=== PATIENT | male | born 1955 | race Caucasian/White ===

== ENCOUNTER 2025-10-07 07:33 | Day surgery (SDC) | payer MEDICARE, BC, SELFPAY ==
--- NOTE | 2025-09-28 13:57 | PAT.ANESEVAL ---
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 When Was Last Pacemaker Check QUESTION #4 FULL TEXT: You/Your Family Experience fever (hyperthermia) with Anesthesia Last Oral Intake Last Oral intake: Last Oral Intake NPO since Meds taken in AM with sips of water? 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 helper: PONV - charm filter operator helper Female No 09/28/25 13:02 HX of Motion Sickness No 09/28/25 13:02 HX of N/V After Surgery No 09/28/25 13:02 Non-Smoker Yes 09/28/25 13:02 Duration of Surgery greater Yes 09/28/25 13:02 than 60 minutes Number of Risk Factors 2 09/28/25 13:02 PONV Score Moderate Risk 09/28/25 13:02 Height & Weight Height & Weight: Anesthesia: Height & Weight Height 6 ft 2 in 08/28/25 09:24 Respiratory Assessment Respiratory Assessment - charm filter operator helper: Respiratory Tract Infection Hx - charm filter operator helper Hx Respiratory Tract Infection No 09/28/25 13:02 STOP Sleep Apnea STOP Sleep Apnea - charm filter operator helper: STOP Sleep Apnea - charm filter operator helper Hx Hypertension Yes: PER PT, CONTROLLED ON 09/28/25 13:02 MEDS Hx Sleep Apnea No 09/28/25 13:02 CPAP BIPAP Do you snore loudly (louder No 09/28/25 13:02 than talking or can be heard Do you often feel tired/ No 09/28/25 13:02 fatigued/ sleepy during daytime? Has anyone observed you stop Yes 09/28/25 13:02 breathing during sleep? STOP Results Positive 09/28/25 13:02 QUESTION #5 FULL TEXT : Do you snore loudly (louder than talking or can be heard through closed doors)? 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 Specify any problems Hx of Preganancy in last 3 N/A 09/28/25 13:02 Months Nurse Filling Out Transfusion MGRIFFITH 09/28/25 13:02 & Questions: Date: 09/28/25 09/28/25 13:02 Time: 13:05 09/28/25 13:02 Patient unable to answer at this time (ie. confused, unrespo /Reproduction History /Reproductive History - charm filter operator helper: /Reproductive Hx- charm filter operator helper Hx Now Gestational Age (in weeks): EDC: Hx Hx Para Hx Section SAB Does the father of the baby or his family experience fever w Father of the baby Malignant Hypertension history comment [facility] Medical History (Updated 09/28/25 @ 13:14 by Sonya Rios) Wears glasses Cancer Alcohol use Easy bruising High cholesterol Restless legs Injury of back Injury of head and neck Hypertension Heartburn Former smoker Leg cramps History of stress test Anemia Home Medications ?Medication ?Instructions ?Recorded ?Last Taken ?Type ascorbate calcium (vitamin C) 500 500 mg PO QDAY 08/28/25 Unknown History mg tablet atorvastatin 20 mg tablet 20 mg PO QDAY 08/28/25 Unknown History bupropion HCl 150 mg 24 hr tablet, 150 mg PO QDAY 08/28/25 Unknown History extended release folic acid 1 mg tablet 1 mg PO QDAY 08/28/25 Unknown History multivitamin 1 tab PO QDAY 08/28/25 Unknown History valsartan 80 mg tablet 80 mg PO QDAY 08/28/25 Unknown History Allergy/AdvReac Type Severity Reaction Status Date / Time No Known Allergies Allergy Verified 09/28/25 12:58 Surgical History (Updated 09/28/25 @ 13:14 by Sonya Rios) History of esophagogastroduodenoscopy (EGD) History of colonoscopy History of cardiac catheterization History of back surgery History of testicular surgery History of hernia surgery Social History Smoking Status: Former smoker Audit: Pertinent Findings Pertinent Findings EKG Perinent findings: 08/2025: SR with slight intraventricular conduction delay. 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 Was scheduled in 09/12 for follow up screening. Recommendation Anesthesia Recommendation Anesthesia recommendation: F/U recommended (Please see if we can get CT ABD results for AAA screen )
--- NOTE | 2025-09-30 12:23 | PAT.ANESEVAL ---
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 When Was Last Pacemaker Check QUESTION #4 FULL TEXT: You/Your Family Experience fever (hyperthermia) with Anesthesia Last Oral Intake Last Oral intake: Last Oral Intake NPO since Meds taken in AM with sips of water? 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 Has anyone observed you stop Yes 09/28/25 13:02 breathing during sleep? STOP Results Positive 09/28/25 13:02 QUESTION #5 FULL TEXT : Do you snore loudly (louder than talking or can be heard through closed doors)? 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 Specify any problems Hx of Preganancy in last 3 N/A 09/28/25 13:02 Months Nurse Filling Out Transfusion MGRIFFITH 09/28/25 13:02 & Questions: Date: 09/28/25 09/28/25 13:02 Time: 13:05 09/28/25 13:02 Patient unable to answer at this time (ie. 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 Hx Now Gestational Age (in weeks): EDC: Hx Hx Para Hx Section SAB Does the father of the baby or his family experience fever w Father of the baby Malignant Hypertension history comment [facility] Medical History (Updated 09/28/25 @ 13:14 by Sonya Rios) Wears glasses Cancer Alcohol use Easy bruising High cholesterol Restless legs Injury of back Injury of head and neck Hypertension Heartburn Former smoker Leg cramps History of stress test Anemia Home Medications ?Medication ?Instructions ?Recorded ?Last Taken ?Type ascorbate calcium (vitamin C) 500 500 mg PO QDAY 08/28/25 Unknown History mg tablet atorvastatin 20 mg tablet 20 mg PO QDAY 08/28/25 Unknown History bupropion HCl 150 mg 24 hr tablet, 150 mg PO QDAY 08/28/25 Unknown History extended release folic acid 1 mg tablet 1 mg PO QDAY 08/28/25 Unknown History multivitamin 1 tab PO QDAY 08/28/25 Unknown History valsartan 80 mg tablet 80 mg PO QDAY 08/28/25 Unknown History Allergy/AdvReac Type Severity Reaction Status Date / Time No Known Allergies Allergy Verified 09/28/25 12:58 Surgical History (Updated 09/28/25 @ 13:14 by Sonya Rios) History of esophagogastroduodenoscopy (EGD) History of colonoscopy History of cardiac catheterization History of back surgery History of testicular surgery History of hernia surgery Social History Smoking Status: Former smoker Audit: Pertinent Findings HISTORY of Pertinent Findings History of Pertinent Findings: EKG Pertinent Findings EKG Perinent findings 08/2025: SR with slight 09/28/25 14:00 intraventricular conduction delay. QTc 459 Additional Pertinent Findings Additional pertinent findings AAA screening 09/09 showed 3 09/28/25 14:00 .4 cm AAA. Was scheduled in 09/12 for follow up screening. Pertinent Findings Additional pertinent findings: 08/2025: U/S aorta shows stable dilation, and radiologist believes no AAA. Recommendation Anesthesia Recommendation Anesthesia recommendation: OPTIMIZED for anesthesia
[2025-10-07] VITALS (9 sets, daily range): BP systolic 125–148; BP diastolic 58–80; PULSE 67–72; RESP 16; TEMP 36.1–36.3; O2SAT 93–99; BMI 28.2
--- OUTSIDE RECORDS SUMMARY | 2025-10-07 07:50 | XMS RPT_ITS | CCD ---
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 Name Role Phone WOOD BARRON DO Primary Care Physician [phone] Mary PT, Courtney Unavailable Unavailable HALKO DO, WOOD Attending Unavailable HALKO DO, WOOD Primary Care Unavailable ALEXANDRIA BECK, SADE Attending Unavail able HALKO DO, WOOD Primary Care Unavailable EDGAR SAMUEL MD Attending Unavaila ble HALKO DO, WOOD Primary Care Unavailable JIMMIE DHLILON, EDGAR Attending Unavaila ble HALKO DO, WOOD Primary Care Unavailable HALKO DO, WOOD Attending Unavailable HALKO DO, WOOD Primary Care Unavailable EDGAR SAMUEL MD Attending Unavaila ble HALKO DO, WOOD Primary Care Unavailable HALKO DO, WOOD Attending Unavailable HALKO DO, WOOD Primary Care Unavailable TIMOTEO BECK, ISAIAH Attending Unavail able HALKO DO, WOOD Primary Care Unavailable HALKO DO, WOOD Primary Care Unavailable HALKO DO, WOOD Attending Unavailable HALKO DO, WOOD Primary Care Unavailable HALKO DO, WOOD Attending Unavailable HALKO DO, WOOD Attending Unavailable HALKO DO, WOOD Primary Care Unavailable TIMOTEO BECK, ISAIAH Attending Unavail able HALKO DO, WOOD Primary Care Unavailable HALKO DO, WOOD Attending Unavailable HALKO DO, WOOD Primary Care Unavailable HALKO DO, WOOD Attending Unavailable HALKO DO, WOOD Primary Care Unavailable Dr. Ceferino Ramirez MD Attending Physician [phone] Ceferino Ramirez Attending Unavailable Ceferino Ramirez Attending Unavailable Ceferino Ramirez Referring Unavailable Donna, Wood Primary Care Unavailable Ceferino Ramirez Attending Unavailable Medications Current Medications Medication Drug Class(es) Dates Sig (Normalized) Sig (Original) acetaminophen 500 mg oral tablet (4 sources) Start: 10-09-2024 Tylenol Extra Strength 500 mg oral tablet Dose : 1,000 mg = 2 tab(s), Oral, q4h, PRN as needed for pain, # 120 tab(s), 0 Refill(s) Start Date: 10/09/24 Status: Ordered Medication Dispense Status: Completed Quantity: 120.0 Unit: tab(s) Total Allowed Fills: 1 Fills Dispensed: 0 Ascorbic Acid (18 sources) Vitamin C Start: 01-16-2022 Vitamin C qDay, 0 Refill(s) Start Date: 01/16/22 Status: Ordered Medication Dispense Status: Completed Total Allowed Fills: 1 Fills Dispensed: 0 Start: 01-16-2022 Vitamin C qDay , 0 Refill(s) Start Date: 01/16/22 Status: Ordered atorvastatin 20 mg oral tablet (20 sources) HMG-CoA Reductase Inhibitor Start: 09-01-2025 atorvastatin 20 mg oral tablet Dose : 20 mg = 1 tab(s), Oral, qDay, # 90 tab(s), 1 Refill(s), [id number], cm, 09/01/25 8:26:00 EDT, Height, kg, 09/01/25 8:26:00 EDT, Dosing Weight Start Date: 09/01/25 Status: Ordered Medication Dispense Status: Completed Quantity: 90.0 Unit: tab(s) Total Allowed Fills: 2 Fills Dispensed: 0 Start: 08-28-2025 take 1 tablet by osiel once daily Start: 03-12-2024 atorvastatin 2 0 mg oral tablet Dose : 20 mg = 1 tab(s), Oral, qDay, # 90 tab(s), 1 Refill(s), Pharmacy: [facility]/pharmacy #[id number], 184.5, cm, 01/15/24 13:57:00 EST, Height, kg, 03/12/24 15:45:00 EDT, Dosing Weight Start Date: 03/12/24 Status: Ordered Start: 10-17-2023 atorvastatin 2 0 mg oral tablet Dose : 20 mg = 1 tab(s), Oral, qDay, # 90 tab(s), 1 Refill(s), Pharmacy: [facility]/pharmacy #[id number], 184.5, cm, 08/08/23 14:33:00 EDT, Height, kg, 08/08/23 14:33:00 EDT, Dosing Weight Start Date: 10/17/23 Status: Ordered Start: 07-16-2023 atorvastatin 2 0 mg oral tablet Dose : 20 mg = 1 tab(s), Oral, qDay, # 90 tab(s), 0 Refill(s), Pharmacy: [facility]/pharmacy #[id number], 184.5, cm, 07/16/23 13:03:00 EDT, Height, kg, 07/16/23 13:03:00 EDT, Dosing Weight Start Date: 07/16/23 Status: Ordered Start: 03-20-2022 End: 03-15-2023 atorvastatin 20 mg oral tabl et Dose : 20 mg = 1 tab(s), Oral, qDay, X 90 day(s), # 90 tab(s), 3 Refill(s), 03/15/23 8:16:00 EDT, Pharmacy: [facility]/pharmacy #[id number], 190, cm, 03/20/22 7:50:00 EDT, Height, kg, 03/20/22 7:50:00 EDT, Dosing Weight Start Date: 03/20/22 Stop Date: 03/15/23 Status: Ordered Start: 08-11-2021 take 1 tablet by osiel th once daily atorvastatin 20 mg oral tablet See Instructions, TAKE 1 TABLET BY MOUTH EVERY DAY, # 60 tab(s), 6 Refill(s), Pharmacy: [facility]/pharmacy #[id number], 187, cm, 04/20/21 11:23:00 EDT, Height, kg, 04/20/21 11:23:00 EDT, Dosing Weight Start Date: 08/11/21 Status: Ordered 24 hr buPROPion hydrochlorid e 150 mg extended release oral tablet (18 sources) Aminoketone Start: 08-28-2025 take 1 tablet by osiel th once daily Start: 03-03-2025 take 1 tablet by osiel th every hour, then take 1 tablet by mouth every twenty-four hours buPROPion 150 mg/24 hours (XL) oral tablet, extended release Dose : 150 mg = 1 tab(s), Oral, q24h, # 90 tab(s), 1 Refill(s), Pharmacy: [facility]/pharmacy #[id number], 188, cm, 03/03/25 10:29:00 EDT, Height, kg, 03/03/25 10:29:00 EDT, Dosing Weight Start Date: 03/03/25 Status: Ordered Medication Dispense Status: Completed Quantity: 90.0 Unit: tab(s) Total Allowed Fills: 2 Fills Dispensed: 0 Start: 03-12-2024 take 1 tablet by osiel th every hour, then take 1 tablet by mouth every twenty-four hours buPROPion 150 mg/24 hours (XL) oral tablet, extended release Dose : 150 mg = 1 tab(s), Oral, q24h, # 90 tab(s), 1 Refill(s), Pharmacy: [facility]/pharmacy #[id number], 184.5, cm, 01/15/24 13:57:00 EST, Height, kg, 03/12/24 15:45:00 EDT, Dosing Weight Start Date: 03/12/24 Status: Ordered Start: 10-17-2023 take 1 tablet by osiel th every hour, then take 1 tablet by mouth every twenty-four hours buPROPion 150 mg/24 hours (XL) oral tablet, extended release Dose : 150 mg = 1 tab(s), Oral, q24h, # 90 tab(s), 1 Refill(s), Pharmacy: [facility]/pharmacy #[id number], 184.5, cm, 08/08/23 14:33:00 EDT, Height, kg, 08/08/23 14:33:00 EDT, Dosing Weight Start Date: 10/17/23 Status: Ordered Start: 07-16-2023 take 1 tablet by osiel th every hour, then take 1 tablet by mouth every twenty-four hours buPROPion 150 mg/24 hours (XL) oral tablet, extended release Dose : 150 mg = 1 tab(s), Oral, q24h, # 90 tab(s), 0 Refill(s), Pharmacy: [facility]/pharmacy #[id number], 184.5, cm, 07/16/23 13:03:00 EDT, Height, kg, 07/16/23 13:03:00 EDT, Dosing Weight Start Date: 07/16/23 Status: Ordered Start: 06-12-2022 take 1 tablet by osiel th every hour, then take 1 tablet by mouth every twenty-four hours buPROPion 150 mg/24 hours (XL) oral tablet, extended release Dose : 150 mg = 1 tab(s), Oral, q24h, # 90 tab(s), 0 Refill(s), Pharmacy: [facility]/pharmacy #[id number], 186, cm, 06/12/22 8:23:00 EDT, Height Start Date: 06/12/22 Status: Ordered calcium ascorbate 500 mg oral tablet (1 source) Start: 08-28-2025 take 1 tablet by mouth once daily doxycycline hyclate 100 mg oral capsule (1 source) Tetracycline- class Drug Start: 09-29-2021 End: 10-09-2021 doxycycline hyclate 100 mg oral capsule Dose : 100 mg = 1 cap(s), Oral, BID, X 10 day(s), # 20 cap(s), 0 Refill(s), 10/09/21 14:10:00 EST, [id number], Acute bronchitis, 187, cm, 09/19/21 9:57:00 EDT, Height, 101.8, kg, 09/19/21 9:57:00 EDT, Dosing Weight Start Date: 09/29/21 Stop Date: 10/09/21 Status: Ordered ferrous sulfate 200 mg oral tablet (18 sources) Start: 01-16-2022 take 1 tablet by mouth once daily ferrous sulfate 200 mg (65 mg elemental iron) oral tablet mg = tab(s), Oral, qDay, 0 Refill(s) Start Date: 01/16/22 Status: Ordered Medication Dispense Status: Completed Total Allowed Fills: 1 Fills Dispensed: 0 folic acid 1 mg oral tablet (20 sources) Start: 10-01-2024 take 1 tablet by mouth once daily Start: 11-24-2022 take 1 tablet by osiel th once daily folic acid 1 mg oral tablet 1 tab(s), Oral, qDay, # 90 tab(s), 1 Refill(s), Pharmacy: [facility]/pharmacy #[id number], 188, cm, 07/17/22 14:55:00 EDT, Height, kg, 07/17/22 14:55:00 EDT, Dosing Weight Start Date: 11/24/22 Status: Ordered Start: 07-17-2022 take 1 tablet by osiel th once daily folic acid 1 mg oral tablet 1 tab(s), Oral, qDay, # 90 tab(s), 1 Refill(s), Pharmacy: [facility]/pharmacy #[id number], 188, cm, 07/17/22 14:55:00 EDT, Height, kg, 07/17/22 14:55:00 EDT, Dosing Weight Start Date: 07/17/22 Status: Ordered Start: 02-20-2022 take 1 tablet by osiel th once daily folic acid 1 mg oral tablet 1 tab(s), Oral, qDay, # 90 tab(s), 1 Refill(s), Pharmacy: [id number], 188, cm, 01/16/22 14:57:00 EST, Height, kg, 01/16/22 14:57:00 EST, Dosing Weight Start Date: 02/20/22 Status: Ordered Start: 09-26-2021 take 1 tablet by osiel th once daily folic acid 1 mg oral tablet See Instructions, TAKE 1 TABLET BY MOUTH EVERY DAY, # 90 tab(s), 1 Refill(s), Pharmacy: [id number], 187, cm, 09/19/21 9:57:00 EDT, Height, kg, 09/19/21 9:57:00 EDT, Dosing Weight Start Date: 09/26/21 Status: Ordered lisinopril 5 mg oral tablet (1 source) Angiotensin Converting Enzyme Inhibitor Start: 02-14-2023 End: 04-15-2023 lisinopril 5 mg oral tablet Dose : 5 mg = 1 tab(s), Oral, qDay, # 60 tab(s), 0 Refill(s), [id number], Hypertension, 184.15, cm, 02/14/23 9:58:00 EDT, Height Start Date: 02/14/23 Stop Date: 04/15/23 Status: Ordered Multivitamin preparation (18 sources) Start: 01-16-2022 take 1 tablet by mouth once daily Multivitamin Dose = 1 tab(s), Oral, Daily, 0 Refill(s) Start Date: 01/16/22 Status: Ordered Medication Dispense Status: Completed Total Allowed Fills: 1 Fills Dispensed: 0 Start: 01-16-2022 take 1 tablet by osiel th once daily Multivitamin Dose = 1 tab(s), Oral, Daily, 0 Refill(s) Start Date: 01/16/22 Status: Ordered Multivitamin tablet (1 source) Start: 08-28-2025 pantoprazole 40 mg delayed release oral tablet (5 sources) Proton Pump Inhibitor Start: 04-20-2021 pantoprazole 40 mg oral enteric coated tablet Dose : 40 mg = 1 tab(s), 0 Refill(s) Start Date: 04/20/21 Status: Ordered phenylephrine 0.0025 mg/mg / witch ness 0.5 mg/mg rectal gel (2 sources) alpha-1 Adrenergic Agonist Start: 07-14-2025 apply 1 dose topically four times daily as needed phenylephrine 0.25% rectal gel Dose = 1 tito, Topical, QID, PRN as needed for itching, # 54 gram(s), 0 Refill(s), Pharmacy: [facility] #[id number], 188, cm, 07/14/25 11:56:00 EDT, Height, kg, 07/14/25 11:56:00 EDT, Dosing Weight Start Date: 07/14/25 Status: Ordered Medication Dispense Status: Completed Quantity: 54.0 Unit: g Total Allowed Fills: 1 Fills Dispensed: 0 predniSONE (4 sources) Start: 09-19-2021 Deltasone 5 mg tab (TAPER) 0 Refill(s) Start Date: 09/19/21 Status: Ordered Promethazine (1 source) Phenothiazine Start: 09-29-2021 End: 10-06-2021 take 1 dose by mouth every six hours as needed for cough Promethazine DM 6.25 mg-15 mg/5 mL oral syrup Dose = 5 mL, Oral, q6h, PRN for cough, X 7 day(s), # 120 mL, 0 Refill(s), Pharmacy: [facility] #[id number], Acute bronchitis, 187, cm, 09/19/21 9:57:00 EDT, Height, kg, 09/19/21 9:57:00 EDT, Dosing Weight Start Date: 09/29/21 Stop Date: 10/06/21 Status: Ordered valsartan 80 mg oral tablet (11 sources) Angiotensin 2 Receptor Esther Start: 09-01-2025 valsartan 80 mg oral tablet Dose : 80 mg = 1 tab(s), Oral, Daily, # 90 tab(s), 1 Refill(s), Pharmacy: [facility]/pharmacy #[id number], 188, cm, 10/14/25 8:26:00 EDT, Height, kg, 09/01/25 8:26:00 EDT, Dosing Weight Start Date: 09/01/25 Status: Ordered Medication Dispense Status: Completed Quantity: 90.0 Unit: tab(s) Total Allowed Fills: 2 Fills Dispensed: 0 Start: 08-28-2025 take 1 tablet by osiel th once daily Start: 03-12-2024 valsartan 80 m g oral tablet Dose : 80 mg = 1 tab(s), Oral, Daily, # 90 tab(s), 1 Refill(s), Pharmacy: [facility]/pharm[facility] #[id number], 184.5, cm, 01/15/24 13:57:00 EST, Height, kg, 03/12/24 15:45:00 EDT, Dosing Weight Start Date: 03/12/24 Status: Ordered Start: 10-17-2023 End: 04-14-2024 valsartan 40 mg oral tablet Dose : 40 mg = 1 tab(s), Oral, qDay, # 90 tab(s), 1 Refill(s), [id number] 184.5, cm, 08/08/23 14:33:00 EDT, Height, kg, 08/08/23 14:33:00 EDT, Dosing Weight Start Date: 10/17/23 Stop Date: 04/14/24 Status: Ordered Start: 07-16-2023 End: 10-14-2023 valsartan 40 mg oral tablet Dose : 40 mg = 1 tab(s), Oral, qDay, # 90 tab(s), 0 Refill(s), Pharmacy: [facility] #[id number], 184.5, cm, 07/16/23 13:03:00 EDT, Height, kg, 07/16/23 13:03:00 EDT, Dosing Weight Start Date: 07/16/23 Stop Date: 10/14/23 Status: Ordered Start: 03-21-2023 End: 06-19-2023 valsartan 40 mg oral tablet Dose : 40 mg = 1 tab(s), Oral, qDay, # 90 tab(s), 0 Refill(s), Pharmacy: [facility]/pharm[facility] #[id number], 184.5, cm, 03/21/23 10:36:00 EDT, Height Start Date: 03/21/23 Stop Date: 06/19/23 Status: Ordered vitamin B12 (7 sources) Vitamin B12 Start: 01-16-2022 Vitamin B12 0 Refill(s) Start Date: 01/16/22 Status: Ordered Completed/Discontinued Medications Medication Drug Class(es) Dates Sig (Normalized) Sig (Original) methocarbamol 750 mg oral tablet (3 sources) Muscle Relaxant Start: 03-06-2023 End: 03-13-2023 methocarbamol 750 mg oral tablet Dose : 1,500 mg = 2 tab(s), Oral, TID, PRN Muscle spasm, Do not drive, operate heavy machinery, or drink alcohol while on this med., # 42 tab(s), 0 Refill(s), Pharmacy: [id number], 184.15, cm, 03/06/23 10:27:00 EDT, Height Start Date: 03/06/23 Stop Date: 03/13/23 Status: Ordered sildenafil 100 mg oral tablet (10 sources) Phosphodiesterase 5 Inhibitor Start: 03-03-2025 End: 06-01-2025 sildenafil 100 mg oral tablet Dose : 100 mg = 1 tab(s), Oral, qDay, PRN activity, # 30 tab(s), 2 Refill(s), Pharmacy: [facility] #[id number], 188, cm, 03/03/25 10:29:00 EDT, Height, kg, 03/03/25 10:29:00 EDT, Dosing Weight Start Date: 03/03/25 Stop Date: 06/01/25 Status: Ordered Medication Dispense Status: Completed Quantity: 30.0 Unit: tab(s) Total Allowed Fills: 3 Fills Dispensed: 0 Start: 03-12-2024 End: 06-10-2024 sildenafil 100 mg oral table t Dose : 100 mg = 1 tab(s), Oral, qDay, PRN activity, # 30 tab(s), 2 Refill(s), Pharmacy: [facility] #[id number], 184.5, cm, 01/15/24 13:57:00 EST, Height, kg, 03/12/24 15:45:00 EDT, Dosing Weight Start Date: 03/12/24 Stop Date: 06/10/24 Status: Ordered Start: 03-21-2023 End: 06-19-2023 sildenafil 100 mg oral table t Dose : 100 mg = 1 tab(s), Oral, qDay, PRN activity, # 30 tab(s), 2 Refill(s), Pharmacy: [facility] #[id number], 184.5, cm, 03/21/23 10:36:00 EDT, Height Start Date: 03/21/23 Stop Date: 06/19/23 Status: Ordered Problems Active Problems Problem Classification Problem Date Documented Da te Episodic/Chronic Aortic; peripheral; and visceral artery aneurysms (15 sources) Abdominal aortic aneurysm without rupture; Translations: [Abdominal aortic aneurysm, without rupture] Onset: 08-21-2022 Chronic Comment on above: 3.4 cm AAA 08/21/22, 3 yr follow up Deficiency and other anemia (20 sources) 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 Deficiency and other anemia (1 source) Anemia; Translations: [Anemia, unspecified] 08-28-2025 Episodic Diabetes mellitus without complication (19 sources) Hyperglycemia; Translations: [Prediabetes] Onset: 08-06-2023 03-20-2022 Episodic Disorders of lipid metabolism (18 sources) Hypercholesterolemia; Translations: [Hyperlipidemia] 05-13-2020 Chronic Essential hypertension (12 sources) Hypertensive disorder; Translations: [Essential (primary) hypertension] Onset: 09-01-2025 03-21-2023 Chronic Gastrointestinal hemorrhage (2 sources) Rectal hemorrhage 07-22-2025 Episodic Osteoarthritis (12 sources) Osteoarthritis 12-12-2022 Chronic Other bone disease and musculoskeletal deformities (9 sources) Somatic dysfunction of lumbar region 07-27-2023 Episodic Other bone disease and musculoskeletal deformities (9 sources) Somatic dysfunction of pelvic region 07-27-2023 Episodic Other bone disease and musculoskeletal deformities (9 sources) Somatic dysfunction of sacral region 07-27-2023 Episodic Other eye disorders (2 sources) Dermatochalasis of right upper eyelid; Translations: [Dermatochalasis of both upper eyelids] 08-28-2025 Episodic Other eye disorders (2 sources) Ptosis of bilateral eyebrows; Translations: [Brow ptosis, bilateral] 08-28-2025 Episodic Other injuries and conditions due to external causes (15 sources) At low risk for fall 06-12-2022 Episodic Other lower respiratory disease (17 sources) Imaging of lung abnormal 03-20-2022 Episodic Other male genital disorders (10 sources) Impotence 03-21-2023 Chronic Other non-traumatic joint disorders (20 sources) Shoulder pain 12-12-2022 Episodic Other nutritional; endocrine; and metabolic disorders (12 sources) High density lipoprotein above reference range 12-12-2022 Chronic Other nutritional; endocrine; and metabolic disorders (12 sources) Overweight 12-12-2022 Episodic Other nutritional; endocrine; and metabolic disorders (8 sources) Overweight in adulthood with body mass index of 25 or more but less than 30 03-21-2023 Episodic Residual codes; unclassified (20 sources) Immunization due 09-19-2021 Episodic Residual codes; unclassified (12 sources) Screening due 12-12-2022 Episodic Screening and history of mental health and substance abuse codes (20 sources) Ex-smoker 09-19-2021 Episodic Comment on above: quit 2013 Spondylosis; intervertebral disc disorders; other back problems (11 sources) Chronic low back pain 03-06-2023 Episodic Unclassified (20 sources) Exposure to asbestos (event) 09-19-2021 Unclassified (20 sources) Patient encounter status 09-19-2021 Past or Other Problems Problem Classification Problem Date Documented Date Episodic/Chronic Other screening for suspected conditions (not mental disorders or infectious disease) (4 sources) Encounter for screening for malignant neoplasm of respiratory organs; Translations: [Encounter for screening for cardiovascular disorders] Onset: 06-17-2024 Episodic Results Test Name Value Interpretation Reference Range Facility MR/PATNicolas 09-30-2025 MR/PATNEL [facility] Medical Records Department [address] [place] [address] PAT - Anesthesia 09/30/25 1223 MR#: [id number] Acct: [id number] Name: WOOD FLANNERY Rep #: [id number] : 1955 70 From: Lauro Pérez MD PCP: Dr. Wood Barron, DO [place] [facility] [place] C [place] [facility] [place]-Assessment Diagnosis/Proposed Procedure Planned Operative Procedure(s): (B) Upper eyelid blepharoplasty and brow lift Anesthesia History Anesthesia History - newsroom intern: Anesthesia History - newsroom intern Hx Hospitalization No 09/28/25 13:02 Any Problems With Anesthesia No 09/28/25 13:02 Cholinesterase deficiency No 09/28/25 13:02 You/Your Family Experience No 09/28/25 13:02 fever (hyperthermia) with Relationship Recent Exposure to Contagious Disease Does patient have nerve No 09/28/25 13:02 stimulator Patient instructed to have device shut off --Does patient have Pacemaker or ICD? When Was Last Pacemaker Check QUESTION #4 FULL TEXT: You/Your Family Experience fever (hyperthermia) with Anesthesia Last Oral Intake Last Oral intake: Last Oral Intake NPO since Meds taken in AM with sips of water? Meds patient instructed to take am of surgery PONV PONV - newsroom intern: PONV - newsroom intern Female No 09/28/25 13:02 HX of Motion Sickness No 09/28/25 13:02 HX of N/V After Surgery No 09/28/25 13:02 Non-Smoker Yes 09/28/25 13:02 Duration of Surgery greater Yes 09/28/25 13:02 than 60 minutes Number of Risk Factors 2 09/28/25 13:02 PONV Score Moderate Risk 09/28/25 13:02 Height Weight Height Weight: Anesthesia: Height Weight Height 6 ft 2 in 08/28/25 09:24 Respiratory Assessment Respiratory Assessment - newsroom intern: Respiratory Tract Infection Hx - newsroom intern Hx Respiratory Tract Infection No 09/28/25 13:02 STOP Sleep Apnea STOP Sleep Apnea - newsroom intern: STOP Sleep Apnea - newsroom intern Hx Hypertension Yes: PER PT, CONTROLLED ON 09/28/25 13:02 MEDS Hx Sleep Apnea No 09/28/25 13:02 CPAP BIPAP Do you snore loudly (louder No 09/28/25 13:02 than talking or can be heard Do you often feel tired/ No 09/28/25 13:02 fatigued/ sleepy during daytime? Has anyone observed you stop Yes 09/28/25 13:02 breathing during sleep? STOP Results Positive 09/28/25 13:02 QUESTION #5 FULL TEXT : Do you snore loudly (louder than talking or can be heard through closed doors)? 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 Specify any problems Hx of Preganancy in last 3 N/A 09/28/25 13:02 Months Nurse Filling Out Transfusion MGRIFFRILEY 09/28/25 13:02 Questions: Date: 09/28/25 09/28/25 13:02 Time: 13:05 09/28/25 13:02 Patient unable to answer at this time (ie. confused, unrespo /Reproductio n History /Reproductiv e History - newsroom intern: /Reproductiv e Hx- newsroom intern Hx Now Gestational Age (in weeks): EDC: Hx Hx Para Hx Section SAB Does the father of the baby or his family experience fever w Father of the baby Malignant Hypertension history comment [facility] Medical History (Updated 09/28/25 @ 13:14 by Sonya Rios) Wears glasses Cancer Alcohol use Easy bruising High cholesterol Restless legs Injury of back Injury of head and neck Hypertension Heartburn Former smoker Leg cramps History of stress test Anemia Home Medications ???Medication ???Instructions ???Recorded ???Last Taken ???Type ascorbate calcium (vitamin C) 500 500 mg PO QDAY 08/28/25 Unknown H istory mg tablet atorvastatin 20 mg tablet 20 mg PO QDAY 08/28/25 Unknown His tory bupropion HCl 150 mg 24 hr tablet, 150 mg PO QDAY 08/28/25 Unknown History extended release folic acid 1 mg tablet 1 mg PO QDAY 08/28/25 Unknown Hist ory multivitamin 1 tab PO QDAY 08/28/25 Unknown His tory valsartan 80 mg tablet 80 mg PO (more content not included)... Normal [facility] MR/PAT.Jacek 09-28-2025 MR/PAT.SNEHAL [facility] Medical Records Department [address] [place] [address] PAT - Anesthesia 09/28/25 1357 MR#: [id number] Acct: [id number] Name: WOOD FLANNERY Rep #: [id number] : 1955 70 From: Lauro Pérez MD PCP: Dr. Wood Barron, DO Status:PRE SD Y Race: C [place] [facility] [place] Pre-Assessment Diagnosis/Proposed Procedure Planned Operative Procedure(s): (B) Upper eyelid blepharoplasty and brow lift Anesthesia History Anesthesia History - newsroom intern: Anesthesia History - newsroom intern Hx Hospitalization No 09/28/25 13:02 Any Problems With Anesthesia No 09/28/25 13:02 Cholinesterase deficiency No 09/28/25 13:02 You/Your Family Experience No 09/28/25 13:02 fever (hyperthermia) with Relationship Recent Exposure to Contagious Disease Does patient have nerve No 09/28/25 13:02 stimulator Patient instructed to have device shut off --Does patient have Pacemaker or ICD? When Was Last Pacemaker Check QUESTION #4 FULL TEXT: You/Your Family Experience fever (hyperthermia) with Anesthesia Last Oral Intake Last Oral intake: Last Oral Intake NPO since Meds taken in AM with sips of water? Meds patient instructed to take am of surgery PONV PONV - newsroom intern: PONV - newsroom intern Female No 09/28/25 13:02 HX of Motion Sickness No 09/28/25 13:02 HX of N/V After Surgery No 09/28/25 13:02 Non-Smoker Yes 09/28/25 13:02 Duration of Surgery greater Yes 09/28/25 13:02 than 60 minutes Number of Risk Factors 2 09/28/25 13:02 PONV Score Moderate Risk 09/28/25 13:02 Height Weight Height Weight: Anesthesia: Height Weight Height 6 ft 2 in 08/28/25 09:24 Respiratory Assessment Respiratory Assessment - newsroom intern: Respiratory Tract Infection Hx - newsroom intern Hx Respiratory Tract Infection No 09/28/25 13:02 STOP Sleep Apnea STOP Sleep Apnea - newsroom intern: STOP Sleep Apnea - newsroom intern Hx Hypertension Yes: PER PT, CONTROLLED ON 09/28/25 13:02 MEDS Hx Sleep Apnea No 09/28/25 13:02 CPAP BIPAP Do you snore loudly (louder No 09/28/25 13:02 than talking or can be heard Do you often feel tired/ No 09/28/25 13:02 fatigued/ sleepy during daytime? Has anyone observed you stop Yes 09/28/25 13:02 breathing during sleep? STOP Results Positive 09/28/25 13:02 QUESTION #5 FULL TEXT : Do you snore loudly (louder than talking or can be heard through closed doors)? 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 Specify any problems Hx of Preganancy in last 3 N/A 09/28/25 13:02 Months Nurse Filling Out Transfusion MARIZA 09/28/25 13:02 Questions: Date: 09/28/25 09/28/25 13:02 Time: 13:05 09/28/25 13:02 Patient unable to answer at this time (ie. confused, unrespo /Reproductio n History /Reproductiv e History - newsroom intern: /Reproductiv e Hx- newsroom intern Hx Now Gestational Age (in weeks): EDC: Hx Hx Para Hx Section SAB Does the father of the baby or his family experience fever w Father of the baby Malignant Hypertension history comment [facility] Medical History (Updated 09/28/25 @ 13:14 by Sonya Rios) Wears glasses Cancer Alcohol use Easy bruising High cholesterol Restless legs Injury of back Injury of head and neck Hypertension Heartburn Former smoker Leg cramps History of stress test Anemia Home Medications ???Medication ???Instructions ???Recorded ???Last Taken ???Type ascorbate calcium (vitamin C) 500 500 mg PO QDAY 08/28/25 Unknown H istory mg tablet atorvastatin 20 mg tablet 20 mg PO QDAY 08/28/25 Unknown His tory bupropion HCl 150 mg 24 hr tablet, 150 mg PO QDAY 08/28/25 Unknown History extended release folic acid 1 mg tablet 1 mg PO QDAY 08/28/25 Unknown Hist ory multivitamin 1 tab PO QDAY 08/28/25 Unknown His tory valsartan 80 mg tablet 80 mg PO (more content not included)... Normal [facility] Plastic Surgery Visit Report on 09-24-2025 Plastic Surgery Visit Report [facility] Plastic Reconstructive Surgery [address], [address] [place] [address] OFFICE VISIT Date of Service: 09/24/25 MR#: [id number] Acct: [id number] Name: WOOD FLANNERY Rep #: [id number] : 1955 Provider: Dr. Ceferino Ramirez MD Age/Sex: 70/M [place] [facility] Status: Signed Intake Vital Signs 08/28/25 09:24 Height 6 ft 2 in Weight: 221 lb BMI 28.3 BP 143/80 H Blood Pressure Location Rt brachial Position Sitting Respiration 18 Pulse 74 Pulse Source Monitor Pulse Oximetry (%) 97 Oxygen Delivery Method room air Intake Visit Reasons: PRE OP Allergies No Known Allergies Allergy (Unverified 08/28/25 09:14) Have you fallen in the past year?: No [facility] Medical History (Updated 08/28/25 @ 14:[address] Ceferino Ramirez MD) Anemia Social History Smoking Status: Former smoker HPI PRE OP Details: HPI, 28 August 2025: The patient is a 70-year-old male presenting for evaluation of excess eyelid skin and potential surgical intervention. The patient has a history of hemolytic anemia, which is currently well-controlled with iron and folic acid supplementation. He reports no significant bleeding issues and does not require frequent monitoring for this condition. 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 He has been under regular dermatological surveillance due to a family history of melanoma, with his father having succumbed to metastatic melanoma. The patient reports normal blood pressure readings, with a recent measurement of 140/80 mmHg. He has not experienced any significant visual disturbances but acknowledges potential issues with peripheral vision, especially while driving. ROS: - Hematologic: Denies bleeding issues - Ophthalmic: Reports potential peripheral vision issues while driving Attestation: Documentation on this patient encounter was supported using ambient scribe technology/ voice AI technology. The patient consented to recording for the purpose of documenting the encounter. Provider reviewed content of the generated note prior to signature. CURRENT ENCOUNTER, 24 Sep 2025: Patient was approved for blepharoplasty and brow lift as he failed his visual field testing. He presents today for preoperative visit. He would like to proceed with surgery Exam Details Pupils: PERRL EOM: EOM intact bilaterally Forehead: Chronic frontalis use to overcome dermatochalasis/brow ptosis. I had him close his eyes, relax his forehead, and then open his eyes again and there was significant visual field obstruction. Static forehead rhytids (deep) Eyebrows: Ptotic and below orbital rim bilaterally Eyelids: * MRD 1 was 4 mm, MRD 2 was 5 mm * Good levator function (approximately 12 mm) * No lagophthalmos * Snap back test: not done * Upper lid dermatochalasis bilaterally, obstructing vertical gaze bilaterally secondary to the skin. The skin is hanging over his eyelashes and the lateral portions of his lid margin. Coding Level of Care Code No Charge Diagnoses Brow ptosis, bilateral H57.813 Dermatochalasis of both upper eyelids H02.831; H02.834 Assessment and Plan (No Qualifiers) Assessment and Plan (1) Brow ptosis, bilateral: Status: Acute (2) Dermatochalasis of both upper eyelids: Status: Acute Plan Assessment and Plan 70-year-old male with a history of hemolytic anemia presenting with excess eyelid skin for potential surgical intervention. The hemolytic anemia is well-managed with iron and folic acid supplementation, and the patient reports no bleeding complications. The primary concern is the excess eyelid skin, which has been noted by the cook house supervisor and peers, prompting consideration for blepharoplasty. The patient is under regular dermatological surveillance due to a family history of melanoma, with no current signs of malignancy reported. 1. Hemolytic Anemia The patient's hemolytic anemia is currently well-controlled with iron and folic acid supplementation. No additional interventions are required at this time, but regular monitoring by the primary care physician is advised. 2. Dermatochalasis The patient is considering blepharoplasty to address excess eyelid skin, which has been noted by both the cook house supervisor and peers. A visual field test is recommended to assess the impact on vision, and surgical clearance from the primary care physician is advised. 3. Preventative Care: Monitoring For Melanoma Due To Family History The patient is under regular dermatological surveillance due to a family history of melanoma, with no current signs of malignancy reported. Continued monitoring is re (more content not included)... Normal [facility] US AORTAon 09-04-2025 US AORTA ORIGINAL EXAMINATION: SCREENING ULTRASOUND OF THE AORTA09/04/2025 7:49 am Ultrasound of the abdominal aorta COMPARISON: CT chest 06/17/2024, 06/11/2023 and 06/12/2022 and ultrasound 08/21/2022 TECHNIQUE: This report is based on interpretation of permanently recorded ultrasound images. HISTORY: ORDERING SYSTEM PROVIDED HISTORY: Reason for Exam: follow up AAA, FINDINGS: AP and Transverse diameter of the proximal segment: 2.8 x 3.3 cm AP and Transverse diameter of the mid segment: 2.1 x 2.4 cm AP and Transverse diameter of the distal segment: 2.1 x 2.7 cm The aortic bifurcation and proximal common iliac arteries arenonaneurysmal also. IMPRESSION: There is stable dilatation of the proximal aorta compared to the previous ultrasound. This is over estimation and artifactually increased since chest CTs before and after the comparison ultrasound include the proximal aorta and show no aneurysmal dilatation. There is no abdominal aortic aneurysm in my opinion. Interpreted by: Brendan Obrien MD Preliminary Report By: Brendan Obrien MD Electronically signed By Brendan Obrien MD Dictated Date: 09/04/2025 9:46:19 AM Prelim Date: 09/04/2025 9:53:55 AM Sign Date: 09/04/2025 9:53:55 AM Ordering Provider: WOOD BARRON [facility] By: Elpidio Keane on 09-01-2025 Albumin DL <= 20 mg/L (U) [Mass/Vol] 3.2 mg/L Invalid Interpretation Code AO ADM SS Albumin/Creatinine DL <= 20 mg/L (U) [Mass ratio] 6 mg/G Normal 0 - 30 mg/G AO Chemistry S Creatinine (U) [Mass/Vol] 51.8 mg/dL Invalid Interpretation Code AO ADM SS MALBRon 09-01-2025 U Creatinine 51.8 mg/dL Normal [facility] Comment on above: Performed By: #### G FR, CMP, PSA, ANEU, CBC, LIPID, A1C, ADIFF #### [facility] [address] [place], [place] [address] U Microalb 3.2 mg/L Normal [facility] Comment on above: Performed By: #### G FR, CMP, PSA, ANEU, CBC, LIPID, A1C, ADIFF #### [facility] [address] [place], [place] [address] U Ratio Alb/Cre 6 mg/G Normal 0-30 [facility] Comment on above: Performed By: #### G FR, CMP, PSA, ANEU, CBC, LIPID, A1C, ADIFF #### [address] [place], [place] [address] Plastic Surgery Visit Report on 08-28-2025 Plastic Surgery Visit Report [facility] Plastic Reconstructive Surgery [address], [address] [place] [address] OFFICE VISIT Date of Service: 08/28/25 MR#: [id number] Acct: [id number] Name: WOOD FLANNERY Rep #: [id number] : 1955 Provider: Dr. Ceferino Ramirez MD Age/Sex: 70/M Location: [facility] Status: Signed with Addenda ADDENDUM by Dr. Ceferino Ramirez MD on 08/28/25 at 1457 Assessment and Plan (No Qualifiers) Assessment and Plan (1) Brow ptosis, bilateral: Status: Acute (2) Dermatochalasis of both upper eyelids: Status: Acute Plan CPT codes for insurance prior authorization are as follows: Blepharoplasty 84454 (50 modifier), Brow Lift 73011 (50 modifier) 08/28/25 1457 Date Ceferino Ramirez MD cc: * Signed Intake Vital Signs 08/28/25 09:24 Height 6 ft 2 in Weight: 221 lb BMI 28.3 BP 143/80 H Blood Pressure Location Rt brachial Position Sitting Respiration 18 Pulse 74 Pulse Source Monitor Pulse Oximetry (%) 97 Oxygen Delivery Method room air Intake Visit Reasons: UPPER BLEPH Is patient in pain?: No Allergies No Known Allergies Allergy (Unverified 08/28/25 09:14) Medications ???Medication ???Instructions ???Recorded ???Confirmed ???Type ascorbate calcium (vitamin C) 500 500 mg PO QDAY 08/28/25 08/28/25 History mg tablet atorvastatin 20 mg tablet 20 mg PO QDAY 08/28/25 08/28/25 Hi story bupropion HCl 150 mg 24 hr tablet, 150 mg PO QDAY 08/28/25 08/28/25 History extended release folic acid 1 mg tablet 1 mg PO QDAY 08/28/25 08/28/25 His tory multivitamin 1 tab PO QDAY 08/28/25 08/28/25 Hi story valsartan 80 mg tablet 80 mg PO QDAY 08/28/25 08/28/25 Hi story Have you fallen in the past year?: No PFSH Medical History (Updated 08/28/25 @ 14:[address] Ceferino Ramirez MD) Anemia Social History Smoking Status: Former smoker HPI UPPER BLEPH Details: The patient is a 70-year-old male presenting for evaluation of excess eyelid skin and potential surgical intervention. The patient has a history of hemolytic anemia, which is currently well-controlled with iron and folic acid supplementation. He reports no significant bleeding issues and does not require frequent monitoring for this condition. 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 He has been under regular dermatological surveillance due to a family history of melanoma, with his father having succumbed to metastatic melanoma. The patient reports normal blood pressure readings, with a recent measurement of 140/80 mmHg. He has not experienced any significant visual disturbances but acknowledges potential issues with peripheral vision, especially while driving. ROS: - Hematologic: Denies bleeding issues - Ophthalmic: Reports potential peripheral vision issues while driving Attestation: Documentation on this patient encounter was supported using ambient scribe technology/ voice AI technology. The patient consented to recording for the purpose of documenting the encounter. Provider reviewed content of the generated note prior to signature. ROS General General: Yes good health; No fever(s) or weight loss HENMT HENMT: No rhinitis, sore throat/mouth sore, nasal congestion, contacts or glaucoma Endo Endocrine: No thyroid disease, polydipsia, heat intolerance, cold intolerance, hepatitis or excessive urine Skin Skin: No Bleeding, bruising, changing moles or suspicious lesion Musc Musculoskeletal: No joint pain, joint stiffness, muscle weakness, back pain, osteoarthritis or Muscle aches/ myalgia Neuro Neurological: No headache(s), No lightheadedness and No numbness Psych Psychiatric: No depression, claustrophobia or anxiety Resp Respiratory: No spitting up, shortness of breath, sleep apnea, asthma, emphysema, TB, Cough or Smoker Gastro Gastrointestinal: No diarrhea, constipation, blood in stool, nausea, vomiting or abdominal bloating Shaan Hematologic: Yes anemia, No bleeding and No abnormal bleeding Genitourinary: No urinary frequency, blood in urine or incontinence Exam Details Pupils: PERRL EOM: EOM intact bilaterally Forehead: Chronic frontalis use to overcome dermatochalasis/brow ptosis. I had him close his eyes, relax his forehead, and then open his eyes again and there was significant visual field obstruction. Static forehead rhytids (deep) Eyebrows: Ptotic and below orbital rim bilaterally Eyelids: * MRD 1 was 4 mm, MRD 2 was 5 mm * Good levator function (approximately 12 mm) * No lagophthalmos * Snap back test: not done * Upper lid dermatochala (more content not included)... Normal [facility] .Auto Diffon 02-27-2025 Basophil, Absolute 0.1 10 3/mcL Normal 0.0-0.3 [facility] Comment on above: Performed By: #### G FR, CMP, PSA, ANEU, CBC, LIPID, A1C, ADIFF #### [facility] [address] [place], [place] [address] Basophils/100 WBC (Bld) 1.3 % Normal 0.0-2.5 [facility] Comment on above: Performed By: #### G FR, CMP, PSA, ANEU, CBC, LIPID, A1C, ADIFF #### [address] [address] Eosinophil, Absolute 0.1 10 3/mcL Normal 0.0-0.7 [facility] Comment on above: Performed By: #### G FR, CMP, PSA, ANEU, CBC, LIPID, A1C, ADIFF #### [address] [address] Eosinophils/100 WBC (Bld) 2.2 % Normal 0.0-6.0 [facility] Comment on above: Performed By: #### G FR, CMP, PSA, ANEU, CBC, LIPID, A1C, ADIFF #### [address] [address] Lymphocyte, Absolute 1.8 10 3/mcL Normal 0.9-4.3 [facility] Comment on above: Performed By: #### G FR, CMP, PSA, ANEU, CBC, LIPID, A1C, ADIFF #### [address] [address] Lymphocytes/100 WBC (Bld) 30.0 % Normal 20.0-40.0 [facility] Comment on above: Performed By: #### G FR, CMP, PSA, ANEU, CBC, LIPID, A1C, ADIFF #### [address] [address] Monocyte, Absolute 0.5 10 3/mcL Normal 0.1-1.4 [facility] Comment on above: Performed By: #### G FR, CMP, PSA, ANEU, CBC, LIPID, A1C, ADIFF #### [address] [address] Monocytes/100 WBC (Bld) 8.9 % Normal 2.0-13.0 [facility] Comment on above: Performed By: #### G FR, CMP, PSA, ANEU, CBC, LIPID, A1C, ADIFF #### [address] [address] Neutrophils/100 WBC (Bld) 57.6 % Normal 50.0-75.0 [facility] Comment on above: Performed By: #### G FR, CMP, PSA, ANEU, CBC, LIPID, A1C, ADIFF #### [address] [address] .GFRon 02-27-2025 Estimated Glomerular Filtration Rate 86 ml/min/1.73sqm Normal [facility] Comment on above: Result Comment: Stages of Chronic Kidney Disease (CKD) Stage Description eGFR(ml/min/1.73 sq.m.) CKD 1 Normal kidney function or >=90 normal kindney function with possible kidney damage (ex. Proteinuria) CKD 2 Kidney damage with mild loss 60-89 of kidney function CKD 3a Mild to moderate loss of kidney 45-59 function CKD 3b Moderate to severe loss of 30-44 of kindey function CKD 4 Severe loss of kidney function 15-29 CKD 5 Kidney failure <15 Note: (go live 2024) the eGFR calculation was updated to the 2020 CKD-EPI creatinine equation without a race factor to calculate the eGFR results. Performed By: #### G FR, CMP, PSA, ANEU, CBC, LIPID, A1C, ADIFF #### [address] [address] .NEUABSon 02-27-2025 Neutrophil, Absolute 3.5 10 3/mcL Normal 2.3-8.1 [facility] Comment on above: Performed By: #### G FR, CMP, PSA, ANEU, CBC, LIPID, A1C, ADIFF #### [address] [address] A1Con 02-27-2025 Glucose [Mass/Vol] 117 mg/dL Normal [facility] Comment on above: Result Comment: Kym mated Average Glucose calculated by equation ((28.7xA1C)-46.7) Estimated average glucose (eAG) is a calculated value from Hemoglobin A1C and is canvas products sales representative of the average blood glucose level in the last 2-3 month period. Normal range: less than 114 mg/dL Performed By: #### G FR, CMP, PSA, ANEU, CBC, LIPID, A1C, ADIFF #### [address] [address] HbA1c (Bld) [Mass fraction] 5.7 % Normal 4.3-6.4 [facility] Comment on above: Performed By: #### G FR, CMP, PSA, ANEU, CBC, LIPID, A1C, ADIFF #### [address] [address] CBCon 02-27-2025 Erythrocyte distribution width (RBC) [Ratio] 12.8 % Normal 11.5-15.5 [facility] Comment on above: Performed By: #### G FR, CMP, PSA, ANEU, CBC, LIPID, A1C, ADIFF #### [address] [address] Hematocrit (Bld) [Volume fraction] 46.7 % Normal 40.0-52.0 [facility] Comment on above: Performed By: #### G FR, CMP, PSA, ANEU, CBC, LIPID, A1C, ADIFF #### [address] [address] Hgb 15.9 G/dL Normal 13.0-17.5 [facility] Comment on above: Performed By: #### G FR, CMP, PSA, ANEU, CBC, LIPID, A1C, ADIFF #### [address] [address] MCH (RBC) [Entitic mass] 30.1 pg Normal 27.0-33.0 [facility] Comment on above: Performed By: #### G FR, CMP, PSA, ANEU, CBC, LIPID, A1C, ADIFF #### [address] [address] MCHC 34.1 G/dL Normal 32.0-36.0 [facility] Comment on above: Performed By: #### G FR, CMP, PSA, ANEU, CBC, LIPID, A1C, ADIFF #### [address] [address] MCV (RBC) [Entitic vol] 88.2 fL Normal 81.0-100.0 [facility] Comment on above: Performed By: #### G FR, CMP, PSA, ANEU, CBC, LIPID, A1C, ADIFF #### [address] [address] Platelet 285 10 3/mcL Normal 150-450 [facility] Comment on above: Performed By: #### G FR, CMP, PSA, ANEU, CBC, LIPID, A1C, ADIFF #### [address] [address] Platelet mean volume (Bld) [Entitic vol] 7.9 fL Normal 6.4-10.5 [facility] Comment on above: Performed By: #### G FR, CMP, PSA, ANEU, CBC, LIPID, A1C, ADIFF #### [address] [address] RBC 5.29 10 6/mcL Normal 4.50-6.00 [facility] Comment on above: Performed By: #### G FR, CMP, PSA, ANEU, CBC, LIPID, A1C, ADIFF #### [address] [address] WBC 6.1 10 3/mcL Normal 4.5-10.8 [facility] Comment on above: Performed By: #### G FR, CMP, PSA, ANEU, CBC, LIPID, A1C, ADIFF #### [address] [address] CMPon 02-27-2025 Albumin Level 4.1 G/dL Normal 3.4-4.8 [facility] Comment on above: Performed By: #### G FR, CMP, PSA, ANEU, CBC, LIPID, A1C, ADIFF #### [address] [address] Albumin/Globulin [Mass ratio] 1.3 {ratio} Normal 1.1-2.5 [facility] Comment on above: Performed By: #### G FR, CMP, PSA, ANEU, CBC, LIPID, A1C, ADIFF #### [address] [address] ALP [Catalytic activity/Vol] 133 U/L Normal 40-135 [facility] Comment on above: Performed By: #### G FR, CMP, PSA, ANEU, CBC, LIPID, A1C, ADIFF #### [address] [place], [place] [address] ALT [Catalytic activity/Vol] 35 U/L Normal 16-63 [facility] Comment on above: Performed By: #### G FR, CMP, PSA, ANEU, CBC, LIPID, A1C, ADIFF #### [address] [place], [place] [address] AST [Catalytic activity/Vol] 18 U/L Normal 10-40 [facility] Comment on above: Performed By: #### G FR, CMP, PSA, ANEU, CBC, LIPID, A1C, ADIFF #### [address] [address] Bili Total 0.5 mg/dL Normal 0.2-1.0 [facility] Comment on above: Result Comment: Use of this assay is not recommended for patients undergoing treatment with eltrombopag due to the potential for falsely elevated results. Performed By: #### G FR, CMP, PSA, ANEU, CBC, LIPID, A1C, ADIFF #### [address] [address] BUN/Creatinine Ratio 19 ratio Normal 7-27 [facility] Comment on above: Performed By: #### G FR, CMP, PSA, ANEU, CBC, LIPID, A1C, ADIFF #### [address] [address] Calcium [Mass/Vol] 9.5 mg/dL Normal 8.4-10.2 [facility] Comment on above: Performed By: #### G FR, CMP, PSA, ANEU, CBC, LIPID, A1C, ADIFF #### [address] [address] Chloride [Moles/Vol] 105 mmol/L Normal 98-107 [facility] Comment on above: Performed By: #### G FR, CMP, PSA, ANEU, CBC, LIPID, A1C, ADIFF #### [address] [address] CO2 [Moles/Vol] 30 mmol/L Normal 23-31 [facility] Comment on above: Performed By: #### G FR, CMP, PSA, ANEU, CBC, LIPID, A1C, ADIFF #### [place] [address] Creatinine [Mass/Vol] 0.97 mg/dL Normal 0.70-1.30 [facility] Comment on above: Result Comment: Test ing performed on Siemens Dimension EXL analyzer using a modified kinetic Melchor technique. Performed By: #### G FR, CMP, PSA, ANEU, CBC, LIPID, A1C, ADIFF #### [address] [address] Electrolyte Balance 5.0 mEq/L Normal 4.0-15.0 [facility] Comment on above: Performed By: #### G FR, CMP, PSA, ANEU, CBC, LIPID, A1C, ADIFF #### [place] [address] Globulin 3.2 G/dL Normal 1.5-3.8 [facility] Comment on above: Performed By: #### G FR, CMP, PSA, ANEU, CBC, LIPID, A1C, ADIFF #### [place] [address] Glucose [Mass/Vol] 104 mg/dL Normal 80-115 [facility] Comment on above: Performed By: #### G FR, CMP, PSA, ANEU, CBC, LIPID, A1C, ADIFF #### [address] [address] Potassium [Moles/Vol] 4.3 mmol/L Normal 3.5-5.1 [facility] Comment on above: Performed By: #### G FR, CMP, PSA, ANEU, CBC, LIPID, A1C, ADIFF #### [place] [address] Sodium [Moles/Vol] 140 mmol/L Normal 136-145 [facility] Comment on above: Performed By: #### G FR, CMP, PSA, ANEU, CBC, LIPID, A1C, ADIFF #### [place] [id number] Total Protein 7.3 G/dL Normal 6.4-8.2 [facility] Comment on above: Performed By: #### G FR, CMP, PSA, ANEU, CBC, LIPID, A1C, ADIFF #### [address] [address] Urea nitrogen [Mass/Vol] 18 mg/dL Normal 7-18 [facility] Comment on above: Performed By: #### G FR, CMP, PSA, ANEU, CBC, LIPID, A1C, ADIFF #### [address] [address] LIPIDon 02-27-2025 Cholesterol [Mass/Vol] 155 mg/dL Normal 0-200 [facility] Comment on above: Result Comment: Chol esterol Reference Interval: Less than 200 Desirable 200-239 Borderline high risk 240 and above High risk Performed By: #### G FR, CMP, PSA, ANEU, CBC, LIPID, A1C, ADIFF #### [address] [address] Cholesterol in HDL [Mass/Vol] 57 mg/dL Normal 40-60 [facility] Comment on above: Performed By: #### G FR, CMP, PSA, ANEU, CBC, LIPID, A1C, ADIFF #### [address] [address] Cholesterol in LDL [Mass/Vol] 77 mg/dL Normal 0-130 [facility] Comment on above: Performed By: #### G FR, CMP, PSA, ANEU, CBC, LIPID, A1C, ADIFF #### [address] [address] Triglyceride [Mass/Vol] 107 mg/dL Normal 0-150 [facility] Comment on above: Result Comment: Trig lyceride Reference Interval: Less than 150 Normal 150-199 Borderline high risk 200-499 High risk 500 or higher Very high risk Performed By: #### G FR, CMP, PSA, ANEU, CBC, LIPID, A1C, ADIFF #### [address] [address] PSAon 02-27-2025 Prostate Specific Antigen 1.00 ng/mL Normal 0.00-4.00 [facility] Comment on above: Performed By: #### G FR, CMP, PSA, ANEU, CBC, LIPID, A1C, ADIFF #### [address] [address] LABORATORYOrdered By: Jos Howard on 10-07-2024 Albumin DL <= 20 mg/L (U) [Mass/Vol] 503 mcg/dL Invalid Interpretation Code AO ADM SS Albumin/Creatinine DL <= 20 mg/L (U) [Mass ratio] 3 mcg/mg Normal 0 - 30 mcg/mg AO ADM SS Creatinine (U) [Mass/Vol] 166.1 mg/dL Normal 39.0 - 259.0 mg/dL AO ADM SS MALBRon 10-07-2024 U Creatinine 166.1 mg/dL Normal 39.0-259.0 [facility] Comment on above: Performed By: #### G FR, CMP, PSA, ANEU, CBC, LIPID, A1C, ADIFF #### [address] [address] U Microalb 503 mcg/dL Normal [facility] Comment on above: Performed By: #### G FR, CMP, PSA, ANEU, CBC, LIPID, A1C, ADIFF #### [address] [address] U Ratio Alb/Cre 3 mcg/mg Normal 0-30 [facility] Comment on above: Performed By: #### G FR, CMP, PSA, ANEU, CBC, LIPID, A1C, ADIFF #### [address] [address] .Auto Diffon 10-03-2024 Basophil, Absolute 0.1 10 3/mcL Normal 0.0-0.2 [facility] Comment on above: Performed By: #### G FR, CMP, PSA, ANEU, CBC, LIPID, A1C, ADIFF #### [address] [address] Basophils/100 WBC (Bld) 0.9 % Normal 0.0-2.5 [facility] Comment on above: Performed By: #### G FR, CMP, PSA, ANEU, CBC, LIPID, A1C, ADIFF #### [address] [address] Eosinophil, Absolute 0.1 10 3/mcL Normal 0.0-0.7 [facility] Comment on above: Performed By: #### G FR, CMP, PSA, ANEU, CBC, LIPID, A1C, ADIFF #### [address] [address] Eosinophils/100 WBC (Bld) 1.9 % Normal 0.0-7.0 [facility] Comment on above: Performed By: #### G FR, CMP, PSA, ANEU, CBC, LIPID, A1C, ADIFF #### [address] [address] Lymphocyte, Absolute 1.7 10 3/mcL Normal 0.9-4.3 [facility] Comment on above: Performed By: #### G FR, CMP, PSA, ANEU, CBC, LIPID, A1C, ADIFF #### [address] [address] Lymphocytes/100 WBC (Bld) 27.6 % Normal 20.0-40.0 [facility] Comment on above: Performed By: #### G FR, CMP, PSA, ANEU, CBC, LIPID, A1C, ADIFF #### [address] [address] Monocyte, Absolute 0.6 10 3/mcL Normal 0.1-1.4 [facility] Comment on above: Performed By: #### G FR, CMP, PSA, ANEU, CBC, LIPID, A1C, ADIFF #### [address] [address] Monocytes/100 WBC (Bld) 9.1 % Normal 2.0-13.0 [facility] Comment on above: Performed By: #### G FR, CMP, PSA, ANEU, CBC, LIPID, A1C, ADIFF #### [address] [address] Neutrophils/100 WBC (Bld) 60.5 % Normal 50.0-75.0 [facility] Comment on above: Performed By: #### G FR, CMP, PSA, ANEU, CBC, LIPID, A1C, ADIFF #### [address] [place], [place] [address] .GFRon 10-03-2024 GFR 109 ml/min/1.73sqm [facility] Comment on above: Result Comment: GFR Population mean for , Non- Americans Ages 20-29 = 116 mL/min/1.73 sq.m. Ages 30-39 = 107 mL/min/1.73 sq.m. Ages 40-49 = 99 mL/min/1.73 sq.m. Ages 50-59 = 93 mL/min/1.73 sq.m. Ages 60-69 = 85 mL/min/1.73 sq.m. Ages 70+ = 75 mL/min/1.73 sq.m. Chronic Kidney Disease: Less than 60 mL/min/1.73 square meters End Stage Renal Disease: Less than 15 mL/min/1.73 square meters Performed By: #### G FR, CMP, PSA, ANEU, CBC, LIPID, A1C, ADIFF #### [address] [address] GFR Non- 90 ml/min/1.73sqm [facility] Comment on above: Result Comment: GFR Population mean for , Non- Americans Ages 20-29 = 116 mL/min/1.73 sq.m. Ages 30-39 = 107 mL/min/1.73 sq.m. Ages 40-49 = 99 mL/min/1.73 sq.m. Ages 50-59 = 93 mL/min/1.73 sq.m. Ages 60-69 = 85 mL/min/1.73 sq.m. Ages 70+ = 75 mL/min/1.73 sq.m. Chronic Kidney Disease: Less than 60 mL/min/1.73 square meters End Stage Renal Disease: Less than 15 mL/min/1.73 square meters Performed By: #### G FR, CMP, PSA, ANEU, CBC, LIPID, A1C, ADIFF #### [address] [address] .NEUABSon 10-03-2024 Neutrophil, Absolute 3.8 10 3/mcL Normal 2.3-8.1 [facility] Comment on above: Performed By: #### G FR, CMP, PSA, ANEU, CBC, LIPID, A1C, ADIFF #### [address] [address] A1Con 10-03-2024 Glucose [Mass/Vol] 117 mg/dL Normal [facility] Comment on above: Result Comment: Kym mated Average Glucose calculated by equation ((28.7xA1C)-46.7) Estimated average glucose (eAG) is a calculated value from Hemoglobin A1C and is canvas products sales representative of the average blood glucose level in the last 2-3 month period. Normal range: less than 114 mg/dL Performed By: #### G FR, CMP, PSA, ANEU, CBC, LIPID, A1C, ADIFF #### [place] [address] HbA1c (Bld) [Mass fraction] 5.7 % Normal 4.3-6.4 [facility] Comment on above: Performed By: #### G FR, CMP, PSA, ANEU, CBC, LIPID, A1C, ADIFF #### [address] [address] CBCon 10-03-2024 Erythrocyte distribution width (RBC) [Ratio] 12.8 % Normal 11.5-15.5 [facility] Comment on above: Performed By: #### G FR, CMP, PSA, ANEU, CBC, LIPID, A1C, ADIFF #### [address] [address] Hematocrit (Bld) [Volume fraction] 43.8 % Normal 40.0-52.0 [facility] Comment on above: Performed By: #### G FR, CMP, PSA, ANEU, CBC, LIPID, A1C, ADIFF #### [place] [id number] Hgb 15.1 G/dL Normal 13.0-17.5 [facility] Comment on above: Performed By: #### G FR, CMP, PSA, ANEU, CBC, LIPID, A1C, ADIFF #### [address] [address] MCH (RBC) [Entitic mass] 30.7 pg Normal 27.0-33.0 [facility] Comment on above: Performed By: #### G FR, CMP, PSA, ANEU, CBC, LIPID, A1C, ADIFF #### [address] [address] MCHC 34.4 G/dL Normal 32.0-36.0 [facility] Comment on above: Performed By: #### G FR, CMP, PSA, ANEU, CBC, LIPID, A1C, ADIFF #### [address] [address] MCV (RBC) [Entitic vol] 89.3 fL Normal 81.0-100.0 [facility] Comment on above: Performed By: #### G FR, CMP, PSA, ANEU, CBC, LIPID, A1C, ADIFF #### [address] [address] Platelet 300 10 3/mcL Normal 150-450 [facility] Comment on above: Performed By: #### G FR, CMP, PSA, ANEU, CBC, LIPID, A1C, ADIFF #### [address] [address] Platelet mean volume (Bld) [Entitic vol] 7.4 fL Normal 6.4-10.5 [facility] Comment on above: Performed By: #### G FR, CMP, PSA, ANEU, CBC, LIPID, A1C, ADIFF #### [address] [address] RBC 4.91 10 6/mcL Normal 4.50-6.00 [facility] Comment on above: Performed By: #### G FR, CMP, PSA, ANEU, CBC, LIPID, A1C, ADIFF #### [address] [address] WBC 6.2 10 3/mcL Normal 4.5-10.8 [facility] Comment on above: Performed By: #### G FR, CMP, PSA, ANEU, CBC, LIPID, A1C, ADIFF #### [address] [address] CMPon 10-03-2024 Albumin Level 3.8 G/dL Normal 3.4-4.8 [facility] Comment on above: Performed By: #### G FR, CMP, PSA, ANEU, CBC, LIPID, A1C, ADIFF #### [address] [address] Albumin/Globulin [Mass ratio] 1.4 {ratio} Normal 1.1-2.5 [facility] Comment on above: Performed By: #### G FR, CMP, PSA, ANEU, CBC, LIPID, A1C, ADIFF #### [address] [address] ALP [Catalytic activity/Vol] 131 U/L Normal 40-135 [facility] Comment on above: Performed By: #### G FR, CMP, PSA, ANEU, CBC, LIPID, A1C, ADIFF #### [address] [address] ALT [Catalytic activity/Vol] 42 U/L Normal 16-63 [facility] Comment on above: Performed By: #### G FR, CMP, PSA, ANEU, CBC, LIPID, A1C, ADIFF #### [address] [address] AST [Catalytic activity/Vol] 16 U/L Normal 10-40 [facility] Comment on above: Performed By: #### G FR, CMP, PSA, ANEU, CBC, LIPID, A1C, ADIFF #### [address] [address] Bili Total 0.5 mg/dL Normal 0.2-1.0 [facility] Comment on above: Result Comment: Use of this assay is not recommended for patients undergoing treatment with eltrombopag due to the potential for falsely elevated results. Performed By: #### G FR, CMP, PSA, ANEU, CBC, LIPID, A1C, ADIFF #### [address] [address] BUN/Creatinine Ratio 21 ratio Normal 7-27 [facility] Comment on above: Performed By: #### G FR, CMP, PSA, ANEU, CBC, LIPID, A1C, ADIFF #### [address] [address] Calcium [Mass/Vol] 9.0 mg/dL Normal 8.4-10.2 [facility] Comment on above: Performed By: #### G FR, CMP, PSA, ANEU, CBC, LIPID, A1C, ADIFF #### [address] [address] Chloride [Moles/Vol] 104 mmol/L Normal 98-107 [facility] Comment on above: Performed By: #### G FR, CMP, PSA, ANEU, CBC, LIPID, A1C, ADIFF #### [address] [address] CO2 [Moles/Vol] 30 mmol/L Normal 23-31 [facility] Comment on above: Performed By: #### G FR, CMP, PSA, ANEU, CBC, LIPID, A1C, ADIFF #### [address] [address] Creatinine [Mass/Vol] 0.85 mg/dL Normal 0.70-1.30 [facility] Comment on above: Result Comment: Test ing performed on Siemens Dimension EXL analyzer using a modified kinetic Melchor technique. Performed By: #### G FR, CMP, PSA, ANEU, CBC, LIPID, A1C, ADIFF #### [address] [address] Electrolyte Balance 7.0 mEq/L Normal 4.0-15.0 [facility] Comment on above: Performed By: #### G FR, CMP, PSA, ANEU, CBC, LIPID, A1C, ADIFF #### [address] [address] Globulin 2.7 G/dL Normal [facility] Comment on above: Performed By: #### G FR, CMP, PSA, ANEU, CBC, LIPID, A1C, ADIFF #### [address] [address] Glucose [Mass/Vol] 104 mg/dL Normal 80-115 [facility] Comment on above: Performed By: #### G FR, CMP, PSA, ANEU, CBC, LIPID, A1C, ADIFF #### [address] [address] Potassium [Moles/Vol] 4.7 mmol/L Normal 3.5-5.1 [facility] Comment on above: Performed By: #### G FR, CMP, PSA, ANEU, CBC, LIPID, A1C, ADIFF #### [address] [address] Sodium [Moles/Vol] 141 mmol/L Normal 136-145 [facility] Comment on above: Performed By: #### G FR, CMP, PSA, ANEU, CBC, LIPID, A1C, ADIFF #### [address] [address] Total Protein 6.5 G/dL Normal 6.4-8.2 [facility] Comment on above: Performed By: #### G FR, CMP, PSA, ANEU, CBC, LIPID, A1C, ADIFF #### [address] [address] Urea nitrogen [Mass/Vol] 18 mg/dL Normal 7-18 [facility] Comment on above: Performed By: #### G FR, CMP, PSA, ANEU, CBC, LIPID, A1C, ADIFF #### [address] [address] HAPTOon 10-03-2024 Haptoglobin 134 mg/dL Normal 40-280 [facility] Comment on above: Performed By: #### G FR, CMP, PSA, ANEU, CBC, LIPID, A1C, ADIFF #### [address] [address] LABORATORYOrdered By: Elpidio Keane on 10-03-2024 Cholesterol [Mass/Vol] 170 mg/dL Normal 0 - 200 mg/dL AO ADM SS Comment on above: Interpretive Data: C holesterol Reference Interval: Less than 200 Desirable 200-239 Borderline high risk 240 and above High risk Cholesterol in HDL [Mass/Vol] 53 mg/dL Normal 40 - 60 mg/dL AO ADM SS Cholesterol in LDL [Mass/Vol] 101 mg/dL Normal 0 - 130 mg/dL AO ADM SS Triglyceride [Mass/Vol] 79 mg/dL Normal 0 - 150 mg/dL AO ADM SS Comment on above: Interpretive Data: T riglyceride Reference Interval: Less than 150 Normal 150-199 Borderline high risk 200-499 High risk 500 or higher Very high risk LABORATORYOrdered By: SYSTEM SYSTEM on 10-03-2024 Glucose [Mass/Vol] 117 mg/dL Invalid Interpretation Code AO Chemistry S Comment on above: Interpretive Data: E stimated average glucose (eAG) is a calculated value from Hemoglobin A1C and is [employer] sales representative of the average blood glucose level in the last 2-3 month period. Normal range: less than 114 mg/dL HbA1c (Bld) [Mass fraction] 5.7 % Normal 4.3 - 6.4 % AO ADM SS Albumin BCP dye [Mass/Vol] 3.8 G/dL Normal 3.4 - 4.8 G/dL AO ADM SS Albumin/Globulin [Mass ratio] 1.4 {ratio} Normal 1.1 - 2.5 ratio AO ADM SS ALP [Catalytic activity/Vol] 131 U/L Normal 40 - 135 U/L AO ADM SS ALT With P-5'-P [Catalytic activity/Vol] 42 U/L Normal 16 - 63 U/L AO ADM SS AST With P-5'-P [Catalytic activity/Vol] 16 U/L Normal 10 - 40 U/L AO ADM SS Basophils (Bld) [#/Vol] 0.1 103/mcL Normal 0.0 - 0.2 10^3/mcL AO Workflow SS Basophils/100 WBC (Bld) 0.9 % Normal 0.0 - 2.5 % AO Workflow SS Bilirubin [Mass/Vol] 0.5 mg/dL Normal 0.2 - 1 .0 mg/dL AO ADM SS Comment on above: Interpretive Data: U se of this assay is not recommended for patients undergoing treatment with eltrombopag due to the potential for falsely elevated results. Calcium [Mass/Vol] 9.0 mg/dL Normal 8.4 - 10. 2 mg/dL AO ADM SS Chloride [Moles/Vol] 104 mmol/L Normal 98 - 10 7 mmol/L AO ADM SS CO2 [Moles/Vol] 30 mmol/L Normal 23 - 31 mmol/L AO ADM SS Creatinine [Mass/Vol] 0.85 mg/dL Normal 0.70 - 1.30 mg/dL AO ADM SS Comment on above: Interpretive Data: T esting performed on Siemens Dimension EXL analyzer using a modified kinetic Melchor technique. Electrolyte Balance 7.0 mEq/L Normal 4.0 - 15 .0 mEq/L AO ADM SS Eosinophil, Absolute 0.1 103/mcL Normal 0.0 - 0 .7 10^3/mcL AO Workflow SS Eosinophils/100 WBC (Bld) 1.9 % Normal 0.0 - 7.0 % AO Workflow SS Erythrocyte distribution width (RBC) [Ratio] 12.8 % Normal 11.5 - 15.5 % AO Workflow SS GFR/1.73 sq M.predicted among blacks MDRD (S/P/Bld) [Vol rate/Area] 109 ml/min/1.73sqm Invalid Interpretation Code AO Chemistry S Comment on above: Interpretive Data: GFR Population mean for , Non- Americans Ages 20-29 = 116 mL/min/1.73 sq.m. Ages 30-39 = 107 mL/min/1.73 sq.m. Ages 40-49 = 99 mL/min/1.73 sq.m. Ages 50-59 = 93 mL/min/1.73 sq.m. Ages 60-69 = 85 mL/min/1.73 sq.m. Ages 70+ = 75 mL/min/1.73 sq.m. Chronic Kidney Disease: Less than 60 mL/min/1.73 square meters End Stage Renal Disease: Less than 15 mL/min/1.73 square meters GFR/1.73 sq M.predicted among non-blacks MDRD (S/P/Bld) [Vol rate/Area] 90 ml/min/1.73sqm Invalid Interpretation Code AO Chemistry S Comment on above: Interpretive Data: GFR Population mean for , Non- Americans Ages 20-29 = 116 mL/min/1.73 sq.m. Ages 30-39 = 107 mL/min/1.73 sq.m. Ages 40-49 = 99 mL/min/1.73 sq.m. Ages 50-59 = 93 mL/min/1.73 sq.m. Ages 60-69 = 85 mL/min/1.73 sq.m. Ages 70+ = 75 mL/min/1.73 sq.m. Chronic Kidney Disease: Less than 60 mL/min/1.73 square meters End Stage Renal Disease: Less than 15 mL/min/1.73 square meters Globulin 2.7 G/dL Invalid Interpretation Code AO ADM SS Glucose [Mass/Vol] 104 mg/dL Normal 80 - 115 mg/dL AO ADM SS Haptoglobin [Mass/Vol] 134 mg/dL Normal 40 - 280 mg/dL AH ADM SS Hematocrit (Bld) [Volume fraction] 43.8 % Normal 40.0 - 52.0 % AO Workflow SS Hemoglobin (Bld) [Mass/Vol] 15.1 G/dL Normal 13.0 - 17.5 G/dL AO Workflow SS Immature reticulocytes/Total reticulocytes (Bld) 0.45 IRF Normal 0.20 - 0.46 IRF AO Workflow SS LDH [Catalytic activity/Vol] 114 U/L Normal 85 - 227 U/L AO ADM SS Lymphocytes (Bld) [#/Vol] 1.7 103/mcL Normal 0.9 - 4.3 10^3/mcL AO Workflow SS Lymphocytes/100 WBC (Bld) 27.6 % Normal 20.0 - 40.0 % AO Workflow SS MCH (RBC) [Entitic mass] 30.7 pg Normal 27.0 - 33.0 pg AO Workflow SS MCHC 34.4 G/dL Normal 32.0 - 36.0 G/dL AO Workflow SS MCV (RBC) [Entitic vol] 89.3 fL Normal 81.0 - 100.0 fL AO Workflow SS Monocytes (Bld) [#/Vol] 0.6 103/mcL Normal 0.1 - 1.4 10^3/mcL AO Workflow SS Monocytes/100 WBC (Bld) 9.1 % Normal 2.0 - 13.0 % AO Workflow SS Neutrophils (Bld) [#/Vol] 3.8 103/mcL Normal 2.3 - 8.1 10^3/mcL AO Workflow SS Neutrophils/100 WBC (Bld) 60.5 % Normal 50.0 - 75.0 % AO Workflow SS Platelet mean volume (Bld) [Entitic vol] 7.4 fL Normal 6.4 - 10.5 fL AO Workflow SS Platelets (Bld) [#/Vol] 300 103/mcL Normal 150 - 450 10^3/mcL AO Workflow SS Potassium [Moles/Vol] 4.7 mmol/L Normal 3.5 - 5.1 mmol/L AO ADM SS Protein [Mass/Vol] 6.5 G/dL Normal 6.4 - 8.2 G/dL AO ADM SS RBC (Bld) [#/Vol] 4.91 106/mcL Normal 4.50 - 6.0 0 10^6/mcL AO Workflow SS Reticulocytes, Auto 1.5 % Normal 0.2 - 2.3 % AO W orkflow SS Sodium [Moles/Vol] 141 mmol/L Normal 136 - 145 mmol/L AO ADM SS Urea nitrogen [Mass/Vol] 18 mg/dL Normal 7 - 18 mg/dL AO ADM SS Urea nitrogen/Creatinine [Mass ratio] 21 ratio Normal 7 - 27 ratio AO ADM SS WBC (Bld) [#/Vol] 6.2 103/mcL Normal 4.5 - 10.8 10^3/mcL AO Workflow SS LDHon 10-03-2024 LDH 114 U/L Normal 85-227 [facility] Comment on above: Performed By: #### G FR, CMP, PSA, ANEU, CBC, LIPID, A1C, ADIFF #### [address] [place], [place] [address] LIPIDon 10-03-2024 Cholesterol [Mass/Vol] 170 mg/dL Normal 0-200 [facility] Comment on above: Result Comment: Chol esterol Reference Interval: Less than 200 Desirable 200-239 Borderline high risk 240 and above High risk Performed By: #### G FR, CMP, PSA, ANEU, CBC, LIPID, A1C, ADIFF #### [facility] [address] [place], [place] [address] Cholesterol in HDL [Mass/Vol] 53 mg/dL Normal 40-60 [facility] Comment on above: Performed By: #### G FR, CMP, PSA, ANEU, CBC, LIPID, A1C, ADIFF #### [facility] [address] [place], [place] [address] Cholesterol in LDL [Mass/Vol] 101 mg/dL Normal 0-130 [facility] Comment on above: Performed By: #### G FR, CMP, PSA, ANEU, CBC, LIPID, A1C, ADIFF #### [address] [place], [place] [address] Triglyceride [Mass/Vol] 79 mg/dL Normal 0-150 [facility] Comment on above: Result Comment: Trig lyceride Reference Interval: Less than 150 Normal 150-199 Borderline high risk 200-499 High risk 500 or higher Very high risk Performed By: #### G FR, CMP, PSA, ANEU, CBC, LIPID, A1C, ADIFF #### [address] [place], [place] [address] RETO (AO)on 10-03-2024 Immature Retic Fraction 0.45 IRF Normal 0.20-0.46 [facility] Comment on above: Performed By: #### R ETO #### [address] [place] [place], [place] [address] Reticulocytes, Auto 1.5 % Normal 0.2-2.3 [facility] Comment on above: Performed By: #### R ETO #### [address] [place] [place], [place] [address] CT THORAX SCREENING W/O CONT RASTon 06-19-2024 CT THORAX SCREENING W/O CONTRAST ORIGINAL EXAMINATION: LOW DOSE SCREENING CT OF THE CHEST WITHOUT CONTRAST06/17/2024 3:30 pm TECHNIQUE: Low dose lung cancer screening CT of the chest was performed without the administration of intravenous contrast. Multiplanar reformatted images are provided for review. Automated exposure control, iterative reconstruction, and/or weight based adjustment of the mA/kV was utilized to reduce the radiation dose to as low as reasonably achievable. COMPARISON: 06/11/2023 HISTORY: ORDERING SYSTEM PROVIDED HISTORY: Reason for Exam: lung nodules, former smoker, follow up exam/screening 6ft 2in 220lb white male. former smoker. quit at age 57. 35 pack years. no current complaints. father had lung ca FINDINGS: 7 mm left apical nodule (series 4, image 18) is stable. 4 mm left upper lobe nodule (series 3, image 194) is stable. 3 mm right upper lobe nodule (series 3, image 167) is stable. A flat 6 mm nodule in the medial right middle lobe compatible with an intrapulmonary lymph node (series 4, image 85) is stable. There are no new or suspicious lung nodules. There is stable pleuroparenchymal scarring at the lung apices. The airways are unremarkable. There is no pleural effusion. There are no enlarged lymph nodes. The heart and great vessels are normal in size. There is no pericardial effusion. A small hiatal hernia is noted. There is a stable cyst in the left hepatic lobe. There is no acute bony abnormality. IMPRESSION: Stable lung nodules. For patients with appropriate lung cancer risk, annual CT screening is recommended. Information below is for Lung nodule tracking purposes: Nodule: S6 Other Findings: None Change: No Change Recall : 1yr scr Recall Type: LDCT LungRads: 2 Interpreted by: Lisandro Mahmood Preliminary Report By: Lisandro Mahmood Electronically signed By Lisandro Mahmood Dictated Date: 06/19/2024 10:21:08 AM Prelim Date: 06/19/2024 10:42:22 AM Sign Date: 06/19/2024 10:42:22 AM Ordering Provider: WOOD Anderson [facility] ([place]) .Auto Diffon 03-07-2024 Basophil, Absolute 0.0 10 3/mcL Normal 0.0-0.2 [facility] ([place]) Comment on above: Performed By: #### A SHANTE, LIPID, ADIFF, A1C, CBC #### [address] [address] Basophils/100 WBC (Bld) 0.7 % Normal 0.0-2.5 [facility] ([place]) Comment on above: Performed By: #### A SHANTE, LIPID, ADIFF, A1C, CBC #### [address] [place] [place], [place] [address] Eosinophil, Absolute 0.2 10 3/mcL Normal 0.0-0.4 [facility] ([place]) Comment on above: Performed By: #### A SHANTE, LIPID, ADIFF, A1C, CBC #### [address] [address] Eosinophils/100 WBC (Bld) 2.3 % Normal 0.0-7.0 [facility] ([place]) Comment on above: Performed By: #### A SHANTE, LIPID, ADIFF, A1C, CBC #### [address] [address] Lymphocyte, Absolute 1.8 10 3/mcL Normal 0.8-3.9 [facility] ([place]) Comment on above: Performed By: #### A SHANTE, LIPID, ADIFF, A1C, CBC #### [address] [address] Lymphocytes/100 WBC (Bld) 26.4 % Normal 10.0-50.0 [facility] ([place]) Comment on above: Performed By: #### A SHANTE, LIPID, ADIFF, A1C, CBC #### [address] [address] Monocyte, Absolute 0.6 10 3/mcL Normal 0.2-1.0 [facility] ([place]) Comment on above: Performed By: #### A SHANTE, LIPID, ADIFF, A1C, CBC #### [address] [address] Monocytes/100 WBC (Bld) 8.5 % Normal 1.7-13.0 [facility] ([place]) Comment on above: Performed By: #### A SHANTE, LIPID, ADIFF, A1C, CBC #### [address] [address] Neutrophils/100 WBC (Bld) 62.1 % Normal 37.0-80.0 [facility] ([place]) Comment on above: Performed By: #### A SHANTE, LIPID, ADIFF, A1C, CBC #### [address] [address] .GFRon 03-07-2024 GFR 100 ml/min/1.73sqm Normal [facility] ([place]) Comment on above: Result Comment: GFR Population mean for , Non- Americans Ages 20-29 = 116 mL/min/1.73 sq.m. Ages 30-39 = 107 mL/min/1.73 sq.m. Ages 40-49 = 99 mL/min/1.73 sq.m. Ages 50-59 = 93 mL/min/1.73 sq.m. Ages 60-69 = 85 mL/min/1.73 sq.m. Ages 70+ = 75 mL/min/1.73 sq.m. Chronic Kidney Disease: Less than 60 mL/min/1.73 square meters End Stage Renal Disease: Less than 15 mL/min/1.73 square meters Performed By: #### A SHANTE, LIPID, ADIFF, A1C, CBC #### [address] [address] GFR Non- 82 ml/min/1.73sqm Normal [facility] ([place]) Comment on above: Result Comment: GFR Population mean for , Non- Americans Ages 20-29 = 116 mL/min/1.73 sq.m. Ages 30-39 = 107 mL/min/1.73 sq.m. Ages 40-49 = 99 mL/min/1.73 sq.m. Ages 50-59 = 93 mL/min/1.73 sq.m. Ages 60-69 = 85 mL/min/1.73 sq.m. Ages 70+ = 75 mL/min/1.73 sq.m. Chronic Kidney Disease: Less than 60 mL/min/1.73 square meters End Stage Renal Disease: Less than 15 mL/min/1.73 square meters Performed By: #### A SHANTE, LIPID, ADIFF, A1C, CBC #### [address] [address] .NEUABSon 03-07-2024 Neutrophil, Absolute 4.1 10 3/mcL Normal 2.9-6.2 [facility] ([place]) Comment on above: Performed By: #### A SHANTE, LIPID, ADIFF, A1C, CBC #### [address] [address] A1Con 03-07-2024 HbA1c (Bld) [Mass fraction] 5.9 % Normal 4.3-6.4 [facility] ([place]) Comment on above: Performed By: #### A SHANTE, LIPID, ADIFF, A1C, CBC #### [address] [address] CBCon 03-07-2024 Erythrocyte distribution width (RBC) [Ratio] 12.8 % Normal 11.5-14.5 [facility] ([place]) Comment on above: Performed By: #### A SHANTE, LIPID, ADIFF, A1C, CBC #### [address] [address] Hematocrit (Bld) [Volume fraction] 44.1 % Normal 42.0-52.0 [facility] ([place]) Comment on above: Performed By: #### A SHANTE, LIPID, ADIFF, A1C, CBC #### [address] [address] Hgb 15.3 G/dL Normal 14.0-18.0 [facility] ([place]) Comment on above: Performed By: #### A SHANTE, LIPID, ADIFF, A1C, CBC #### [address] [address] MCH (RBC) [Entitic mass] 30.5 pg Normal 27.0-31.2 [facility] ([place]) Comment on above: Performed By: #### A SHANTE, LIPID, ADIFF, A1C, CBC #### [address] [address] MCHC 34.8 G/dL Normal 31.8-35.4 [facility] ([place]) Comment on above: Performed By: #### A SHANTE, LIPID, ADIFF, A1C, CBC #### [address] [address] MCV (RBC) [Entitic vol] 87.6 fL Normal 80.0-94.0 [facility] ([place]) Comment on above: Performed By: #### A SHANTE, LIPID, ADIFF, A1C, CBC #### [address] [id number] Platelet 268 10 3/mcL Normal 130-400 [facility] [facility] [place] Comment on above: Performed By: #### A SHANTE, LIPID, ADIFF, A1C, CBC #### [address] [address] Platelet mean volume (Bld) [Entitic vol] 7.7 fL Normal 7.4-10.4 [facility] ([place]) Comment on above: Performed By: #### A SHANTE, LIPID, ADIFF, A1C, CBC #### [address] [address] RBC 5.03 10 6/mcL Normal 4.04-6.13 [facility] ([place]) Comment on above: Performed By: #### A SHANTE, LIPID, ADIFF, A1C, CBC #### [address] [address] WBC 6.7 10 3/mcL Normal 4.6-10.8 [facility] ([place]) Comment on above: Performed By: #### A SHANTE, LIPID, ADIFF, A1C, CBC #### [address] [address] CMPon 03-07-2024 Albumin Level 3.9 G/dL Normal 3.4-4.8 [facility] ([place]) Comment on above: Performed By: #### A SHANTE, LIPID, ADIFF, A1C, CBC #### [address] [address] Albumin/Globulin [Mass ratio] 1.4 {ratio} Normal 1.1-2.5 [facility] ([place]) Comment on above: Performed By: #### A SHANTE, LIPID, ADIFF, A1C, CBC #### [address] [address] ALP [Catalytic activity/Vol] 134 U/L Normal 40-135 [facility] ([place]) Comment on above: Performed By: #### A SHANTE, LIPID, ADIFF, A1C, CBC #### [address] [address] ALT [Catalytic activity/Vol] 41 U/L Normal 16-63 [facility] ([place]) Comment on above: Performed By: #### A SHANTE, LIPID, ADIFF, A1C, CBC #### [address] [address] AST [Catalytic activity/Vol] 22 U/L Normal 10-40 [facility] ([place]) Comment on above: Performed By: #### A SHANTE, LIPID, ADIFF, A1C, CBC #### [address] [address] Bili Total 0.4 mg/dL Normal 0.2-1.0 [facility] ([place]) Comment on above: Result Comment: Use of this assay is not recommended for patients undergoing treatment with eltrombopag due to the potential for falsely elevated results. Performed By: #### A SHANTE, LIPID, ADIFF, A1C, CBC #### [address] [address] BUN/Creatinine Ratio 20 ratio Normal 7-27 [facility] ([place]) Comment on above: Performed By: #### A SHANTE, LIPID, ADIFF, A1C, CBC #### [address] [address] Calcium [Mass/Vol] 8.5 mg/dL Normal 8.4-10.2 [facility] ([place]) Comment on above: Performed By: #### A SHANTE, LIPID, ADIFF, A1C, CBC #### [address] [address] Chloride [Moles/Vol] 104 mmol/L Normal 98-107 [facility] ([place]) Comment on above: Performed By: #### A SHANTE, LIPID, ADIFF, A1C, CBC #### [address] [address] CO2 [Moles/Vol] 28 mmol/L Normal 23-31 [facility] ([place]) Comment on above: Performed By: #### A SHANTE, LIPID, ADIFF, A1C, CBC #### [address] [address] Creatinine [Mass/Vol] 0.92 mg/dL Normal 0.70-1.30 Pending sale to [facility] ([place]) Comment on above: Performed By: #### A SHANTE, LIPID, ADIFF, A1C, CBC #### [address] [address] Electrolyte Balance 10.0 mEq/L Normal 4.0-15.0 [facility] ([place]) Comment on above: Performed By: #### A SHANTE, LIPID, ADIFF, A1C, CBC #### [address] [address] Globulin 2.8 G/dL Normal [facility] ([place]) Comment on above: Performed By: #### A SHANTE, LIPID, ADIFF, A1C, CBC #### [address] [address] Glucose [Mass/Vol] 106 mg/dL Normal 80-115 [facility] ([place]) Comment on above: Performed By: #### A SHANTE, LIPID, ADIFF, A1C, CBC #### [address] [address] Potassium [Moles/Vol] 4.2 mmol/L Normal 3.5-5.1 Pending sale to [facility] ([place] Comment on above: Performed By: #### A SHANTE, LIPID, ADIFF, A1C, CBC #### [address] [address] Sodium [Moles/Vol] 142 mmol/L Normal 136-145 [facility] ([place]) Comment on above: Performed By: #### A SHANTE, LIPID, ADIFF, A1C, CBC #### [address] [address] Total Protein 6.7 G/dL Normal 6.4-8.2 [facility] ([place]) Comment on above: Performed By: #### A SHANTE, LIPID, ADIFF, A1C, CBC #### [address] [address] Urea nitrogen [Mass/Vol] 18 mg/dL Normal 7-18 [facility] ([place]) Comment on above: Performed By: #### A SHANTE, LIPID, ADIFF, A1C, CBC #### [address] [address] LABORATORYOrdered By: SYSTEM SYSTEM on 03-07-2024 Albumin BCP dye [Mass/Vol] 3.9 G/dL Normal 3.4 - 4.8 G/dL AO ADM SS Albumin/Globulin [Mass ratio] 1.4 {ratio} Normal 1.1 - 2.5 ratio AO ADM SS ALP [Catalytic activity/Vol] 134 U/L Normal 40 - 135 U/L AO ADM SS ALT With P-5'-P [Catalytic activity/Vol] 41 U/L Normal 16 - 63 U/L AO ADM SS AST With P-5'-P [Catalytic activity/Vol] 22 U/L Normal 10 - 40 U/L AO ADM SS Basophil, Absolute 0.0 103/mcL Normal 0.0 - 0.2 10^3/mcL AO Workflow SS Basophils/100 WBC (Bld) 0.7 % Normal 0.0 - 2.5 % AO Workflow SS Bilirubin [Mass/Vol] 0.4 mg/dL Normal 0.2 - 1 .0 mg/dL AO ADM SS Comment on above: Interpretive Data: U se of this assay is not recommended for patients undergoing treatment with eltrombopag due to the potential for falsely elevated results. Calcium [Mass/Vol] 8.5 mg/dL Normal 8.4 - 10. 2 mg/dL AO ADM SS Chloride [Moles/Vol] 104 mmol/L Normal 98 - 10 7 mmol/L AO ADM SS CO2 [Moles/Vol] 28 mmol/L Normal 23 - 31 mmol/L AO ADM SS Creatinine [Mass/Vol] 0.92 mg/dL Normal 0.70 - 1.30 mg/dL AO ADM SS Electrolyte Balance 10.0 mEq/L Normal 4.0 - 15 .0 mEq/L AO ADM SS Eosinophil, Absolute 0.2 103/mcL Normal 0.0 - 0 .4 10^3/mcL AO Workflow SS Eosinophils/100 WBC (Bld) 2.3 % Normal 0.0 - 7.0 % AO Workflow SS Erythrocyte distribution width (RBC) [Ratio] 12.8 % Normal 11.5 - 14.5 % AO Workflow SS GFR/1.73 sq M.predicted among blacks MDRD (S/P/Bld) [Vol rate/Area] 100 ml/min/1.73sqm Invalid Interpretation Code AO Chemistry S Comment on above: Interpretive Data: GFR Population mean for , Non- Americans Ages 20-29 = 116 mL/min/1.73 sq.m. Ages 30-39 = 107 mL/min/1.73 sq.m. Ages 40-49 = 99 mL/min/1.73 sq.m. Ages 50-59 = 93 mL/min/1.73 sq.m. Ages 60-69 = 85 mL/min/1.73 sq.m. Ages 70+ = 75 mL/min/1.73 sq.m. Chronic Kidney Disease: Less than 60 mL/min/1.73 square meters End Stage Renal Disease: Less than 15 mL/min/1.73 square meters GFR/1.73 sq M.predicted among non-blacks MDRD (S/P/Bld) [Vol rate/Area] 82 ml/min/1.73sqm Invalid Interpretation Code AO Chemistry S Comment on above: Interpretive Data: GFR Population mean for , Non- Americans Ages 20-29 = 116 mL/min/1.73 sq.m. Ages 30-39 = 107 mL/min/1.73 sq.m. Ages 40-49 = 99 mL/min/1.73 sq.m. Ages 50-59 = 93 mL/min/1.73 sq.m. Ages 60-69 = 85 mL/min/1.73 sq.m. Ages 70+ = 75 mL/min/1.73 sq.m. Chronic Kidney Disease: Less than 60 mL/min/1.73 square meters End Stage Renal Disease: Less than 15 mL/min/1.73 square meters Globulin 2.8 G/dL Invalid Interpretation Code AO ADM SS Glucose [Mass/Vol] 106 mg/dL Normal 80 - 115 mg/dL AO ADM SS HbA1c (Bld) [Mass fraction] 5.9 % Normal 4.3 - 6.4 % AO ADM SS Hematocrit (Bld) [Volume fraction] 44.1 % Normal 42.0 - 52.0 % AO Workflow SS Hemoglobin (Bld) [Mass/Vol] 15.3 G/dL Normal 14.0 - 18.0 G/dL AO Workflow SS Lymphocyte, Absolute 1.8 103/mcL Normal 0.8 - 3 .9 10^3/mcL AO Workflow SS Lymphocytes/100 WBC (Bld) 26.4 % Normal 10.0 - 50.0 % AO Workflow SS MCH (RBC) [Entitic mass] 30.5 pg Normal 27.0 - 31.2 pg AO Workflow SS MCHC 34.8 G/dL Normal 31.8 - 35.4 G/dL AO Workflow SS MCV (RBC) [Entitic vol] 87.6 fL Normal 80.0 - 94.0 fL AO Workflow SS Monocyte, Absolute 0.6 103/mcL Normal 0.2 - 1.0 10^3/mcL AO Workflow SS Monocytes/100 WBC (Bld) 8.5 % Normal 1.7 - 13.0 % AO Workflow SS Neutrophil, Absolute 4.1 103/mcL Normal 2.9 - 6 .2 10^3/mcL AO Workflow SS Neutrophils/100 WBC (Bld) 62.1 % Normal 37.0 - 80.0 % AO Workflow SS Platelet mean volume (Bld) [Entitic vol] 7.7 fL Normal 7.4 - 10.4 fL AO Workflow SS Platelets (Bld) [#/Vol] 268 103/mcL Normal 130 - 400 10^3/mcL AO Workflow SS Potassium [Moles/Vol] 4.2 mmol/L Normal 3.5 - 5.1 mmol/L AO ADM SS Prostate specific Ag [Mass/Vol] 0.83 ng/mL Normal 0.00 - 4.00 ng/mL AO ADM SS Protein [Mass/Vol] 6.7 G/dL Normal 6.4 - 8.2 G/dL AO ADM SS RBC (Bld) [#/Vol] 5.03 106/mcL Normal 4.04 - 6.1 3 10^6/mcL AO Workflow SS Sodium [Moles/Vol] 142 mmol/L Normal 136 - 145 mmol/L AO ADM SS Urea nitrogen [Mass/Vol] 18 mg/dL Normal 7 - 18 mg/dL AO ADM SS Urea nitrogen/Creatinine [Mass ratio] 20 ratio Normal 7 - 27 ratio AO ADM SS WBC (Bld) [#/Vol] 6.7 103/mcL Normal 4.6 - 10.8 10^3/mcL AO Workflow SS LABORATORYOrdered By: Elpidio Keane on 03-07-2024 Cholesterol [Mass/Vol] 182 mg/dL Normal 0 - 200 mg/dL AO ADM SS Comment on above: Interpretive Data: C holesterol Reference Interval: Less than 200 Desirable 200-239 Borderline high risk 240 and above High risk Cholesterol in HDL [Mass/Vol] 56 mg/dL Normal 40 - 60 mg/dL AO ADM SS Cholesterol in LDL [Mass/Vol] 105 mg/dL Normal 0 - 130 mg/dL AO ADM SS Triglyceride [Mass/Vol] 107 mg/dL Normal 0 - 150 mg/dL AO ADM SS Comment on above: Interpretive Data: T riglyceride Reference Interval: Less than 150 Normal 150-199 Borderline high risk 200-499 High risk 500 or higher Very high risk LIPIDon 03-07-2024 Cholesterol [Mass/Vol] 182 mg/dL Normal 0-200 [facility] ([place]) Comment on above: Result Comment: Chol esterol Reference Interval: Less than 200 Desirable 200-239 Borderline high risk 240 and above High risk Performed By: #### A SHANTE, LIPID, ADIFF, A1C, CBC #### [address] [address] Cholesterol in HDL [Mass/Vol] 56 mg/dL Normal 40-60 [facility] ([place]) Comment on above: Performed By: #### A SHANTE, LIPID, ADIFF, A1C, CBC #### [address] [address] Cholesterol in LDL [Mass/Vol] 105 mg/dL Normal 0-130 [facility] ([place]) Comment on above: Performed By: #### A SHANTE, LIPID, ADIFF, A1C, CBC #### [address] [address] Triglyceride [Mass/Vol] 107 mg/dL Normal 0-150 [facility] ([place]) Comment on above: Result Comment: Trig lyceride Reference Interval: Less than 150 Normal 150-199 Borderline high risk 200-499 High risk 500 or higher Very high risk Performed By: #### A SHANTE, LIPID, ADIFF, A1C, CBC #### [address] [address] PSAon 03-07-2024 Prostate Specific Antigen 0.83 ng/mL Normal 0.00-4.00 [facility] ([place]) Comment on above: Performed By: #### A SHANTE, LIPID, ADIFF, A1C, CBC #### [address] [address] .Auto Diffon 01-01-2024 Basophil, Absolute 0.1 10 3/mcL Normal 0.0-0.2 [facility] ([place]) Comment on above: Performed By: #### A SHANTE, LIPID, ADIFF, A1C, CBC #### [address] [address] Basophils/100 WBC (Bld) 1.0 % Normal 0.0-2.5 [facility] ([place]) Comment on above: Performed By: #### A SHANTE, LIPID, ADIFF, A1C, CBC #### [address] [address] Eosinophil, Absolute 0.1 10 3/mcL Normal 0.0-0.4 [facility] ([place]) Comment on above: Performed By: #### A SHANTE, LIPID, ADIFF, A1C, CBC #### [address] [address] Eosinophils/100 WBC (Bld) 1.4 % Normal 0.0-7.0 [facility] ([place]) Comment on above: Performed By: #### A SHANTE, LIPID, ADIFF, A1C, CBC #### [address] [address] Lymphocyte, Absolute 1.5 10 3/mcL Normal 0.8-3.9 [facility] ([place]) Comment on above: Performed By: #### A SHANTE, LIPID, ADIFF, A1C, CBC #### [address] [address] Lymphocytes/100 WBC (Bld) 25.2 % Normal 10.0-50.0 [facility] ([place]) Comment on above: Performed By: #### A SHANTE, LIPID, ADIFF, A1C, CBC #### [address] [address] Monocyte, Absolute 0.5 10 3/mcL Normal 0.2-1.0 [facility] ([place]) Comment on above: Performed By: #### A SHANTE, LIPID, ADIFF, A1C, CBC #### [address] [address] Monocytes/100 WBC (Bld) 8.9 % Normal 1.7-13.0 [facility] ([place]) Comment on above: Performed By: #### A SHANTE, LIPID, ADIFF, A1C, CBC #### [address] [address] Neutrophils/100 WBC (Bld) 63.5 % Normal 37.0-80.0 [facility] ([place]) Comment on above: Performed By: #### A SHANTE, LIPID, ADIFF, A1C, CBC #### [address] [address] .GFRon 01-01-2024 GFR 101 ml/min/1.73sqm Normal [facility] ([place]) Comment on above: Result Comment: GFR Population mean for , Non- Americans Ages 20-29 = 116 mL/min/1.73 sq.m. Ages 30-39 = 107 mL/min/1.73 sq.m. Ages 40-49 = 99 mL/min/1.73 sq.m. Ages 50-59 = 93 mL/min/1.73 sq.m. Ages 60-69 = 85 mL/min/1.73 sq.m. Ages 70+ = 75 mL/min/1.73 sq.m. Chronic Kidney Disease: Less than 60 mL/min/1.73 square meters End Stage Renal Disease: Less than 15 mL/min/1.73 square meters Performed By: #### A SHANTE, LIPID, ADIFF, A1C, CBC #### [address] [address] GFR Non- 83 ml/min/1.73sqm Normal [facility] ([place]) Comment on above: Result Comment: GFR Population mean for , Non- Americans Ages 20-29 = 116 mL/min/1.73 sq.m. Ages 30-39 = 107 mL/min/1.73 sq.m. Ages 40-49 = 99 mL/min/1.73 sq.m. Ages 50-59 = 93 mL/min/1.73 sq.m. Ages 60-69 = 85 mL/min/1.73 sq.m. Ages 70+ = 75 mL/min/1.73 sq.m. Chronic Kidney Disease: Less than 60 mL/min/1.73 square meters End Stage Renal Disease: Less than 15 mL/min/1.73 square meters Performed By: #### A SHANTE, LIPID, ADIFF, A1C, CBC #### [address] [address] .NEUABSon 01-01-2024 Neutrophil, Absolute 3.8 10 3/mcL Normal 2.9-6.2 [facility] ([place]) Comment on above: Performed By: #### A SHANTE, LIPID, ADIFF, A1C, CBC #### [address] [address] CBCon 01-01-2024 Erythrocyte distribution width (RBC) [Ratio] 12.4 % Normal 11.5-14.5 [facility] ([place]) Comment on above: Performed By: #### A SHANTE, LIPID, ADIFF, A1C, CBC #### [place] [address] Hematocrit (Bld) [Volume fraction] 44.8 % Normal 42.0-52.0 [facility] ([place]) Comment on above: Performed By: #### A SHANTE, LIPID, ADIFF, A1C, CBC #### [place] [id number] Hgb 15.3 G/dL Normal 14.0-18.0 [facility] ([place]) Comment on above: Performed By: #### A SHANTE, LIPID, ADIFF, A1C, CBC #### [address] [address] MCH (RBC) [Entitic mass] 30.5 pg Normal 27.0-31.2 [facility] ([place]) Comment on above: Performed By: #### A SHANTE, LIPID, ADIFF, A1C, CBC #### [place] [address] MCHC 34.2 G/dL Normal 31.8-35.4 [facility] ([place]) Comment on above: Performed By: #### A SHANTE, LIPID, ADIFF, A1C, CBC #### [address] [address] MCV (RBC) [Entitic vol] 89.1 fL Normal 80.0-94.0 [facility] ([place]) Comment on above: Performed By: #### A SHANTE, LIPID, ADIFF, A1C, CBC #### [address] [address] Platelet 287 10 3/mcL Normal 130-400 [facility] ([place]) Comment on above: Performed By: #### A SHANTE, LIPID, ADIFF, A1C, CBC #### [address] [address] Platelet mean volume (Bld) [Entitic vol] 8.0 fL Normal 7.4-10.4 [facility] ([place]) Comment on above: Performed By: #### A SHANTE, LIPID, ADIFF, A1C, CBC #### [address] [address] RBC 5.03 10 6/mcL Normal 4.04-6.13 [facility] ([place]) Comment on above: Performed By: #### A SHANTE, LIPID, ADIFF, A1C, CBC #### [address] [address] WBC 6.0 10 3/mcL Normal 4.6-10.8 [facility] ([place]) Comment on above: Performed By: #### A SHANTE, LIPID, ADIFF, A1C, CBC #### [address] [address] CMPon 01-01-2024 Albumin Level 3.7 G/dL Normal 3.4-4.8 [facility] ([place]) Comment on above: Performed By: #### A SHANTE, LIPID, ADIFF, A1C, CBC #### [address] [address] Albumin/Globulin [Mass ratio] 1.2 {ratio} Normal 1.1-2.5 [facility] ([place]) Comment on above: Performed By: #### A SHANTE, LIPID, ADIFF, A1C, CBC #### [address] [address] ALP [Catalytic activity/Vol] 130 U/L Normal 40-135 [facility] ([place]) Comment on above: Performed By: #### A SHANTE, LIPID, ADIFF, A1C, CBC #### [address] [address] ALT [Catalytic activity/Vol] 32 U/L Normal 16-63 [facility] ([place]) Comment on above: Performed By: #### A SHANTE, LIPID, ADIFF, A1C, CBC #### [address] [address] AST [Catalytic activity/Vol] 17 U/L Normal 10-40 [facility] ([place]) Comment on above: Performed By: #### A SHANTE, LIPID, ADIFF, A1C, CBC #### [address] [address] Bili Total 0.4 mg/dL Normal 0.2-1.0 [facility] ([place]) Comment on above: Result Comment: Use of this assay is not recommended for patients undergoing treatment with eltrombopag due to the potential for falsely elevated results. Performed By: #### A SHANTE, LIPID, ADIFF, A1C, CBC #### [address] [address] BUN/Creatinine Ratio 20 ratio Normal 7-27 [facility] ([place]) Comment on above: Performed By: #### A SHANTE, LIPID, ADIFF, A1C, CBC #### [address] [address] Calcium [Mass/Vol] 9.0 mg/dL Normal 8.4-10.2 [facility] ([place]) Comment on above: Performed By: #### A SHANTE, LIPID, ADIFF, A1C, CBC #### [address] [address] Chloride [Moles/Vol] 105 mmol/L Normal 98-107 [facility] ([place] Comment on above: Performed By: #### A SHANTE, LIPID, ADIFF, A1C, CBC #### [address] [address] CO2 [Moles/Vol] 27 mmol/L Normal 23-31 [facility] ([place]) Comment on above: Performed By: #### A SHANTE, LIPID, ADIFF, A1C, CBC #### [address] [address] Creatinine [Mass/Vol] 0.91 mg/dL Normal 0.70-1.30 Pending sale to [facility] ([place]) Comment on above: Performed By: #### A SHANTE, LIPID, ADIFF, A1C, CBC #### [address] [address] Electrolyte Balance 13.0 mEq/L Normal 4.0-15.0 [facility] ([place]) Comment on above: Performed By: #### A SHANTE, LIPID, ADIFF, A1C, CBC #### [address] [address] Globulin 3.1 G/dL Normal [facility] ([place]) Comment on above: Performed By: #### A SHANTE, LIPID, ADIFF, A1C, CBC #### [address] [address] Glucose [Mass/Vol] 100 mg/dL Normal 80-115 [facility] ([place]) Comment on above: Performed By: #### A SHANTE, LIPID, ADIFF, A1C, CBC #### [address] [address] Potassium [Moles/Vol] 4.3 mmol/L Normal 3.5-5.1 Pending sale to [facility] ([place] Comment on above: Performed By: #### A SHANTE, LIPID, ADIFF, A1C, CBC #### [address] [address] Sodium [Moles/Vol] 145 mmol/L Normal 136-145 [facility] ([place]) Comment on above: Performed By: #### A SHANTE, LIPID, ADIFF, A1C, CBC #### [address] [address] Total Protein 6.8 G/dL Normal 6.4-8.2 [facility] ([place]) Comment on above: Performed By: #### A SHNATE, LIPID, ADIFF, A1C, CBC #### [address] [address] Urea nitrogen [Mass/Vol] 18 mg/dL Normal 7-18 [facility] ([place]) Comment on above: Performed By: #### A SHANTE, LIPID, ADIFF, A1C, CBC #### [address] [address] HAPTOon 01-01-2024 Haptoglobin 121 mg/dL Normal 40-280 [facility] ([place]) Comment on above: Performed By: #### A SHANTE, LIPID, ADIFF, A1C, CBC #### [address] [address] LDHon 01-01-2024 LDH 127 U/L Normal 85-227 [facility] ([place]) Comment on above: Performed By: #### A SHANTE, LIPID, ADIFF, A1C, CBC #### [address] [address] RETO (AO)on 01-01-2024 Immature Retic Fraction 0.46 IRF Normal 0.20-0.46 [facility] ([place]) Comment on above: Performed By: #### A SHANTE, LIPID, ADIFF, A1C, CBC #### [address] [address] Reticulocytes, Auto 1.3 % Normal 0.2-2.3 [facility] ([place]) Comment on above: Performed By: #### A SHANTE, LIPID, ADIFF, A1C, CBC #### [address] [address] .Auto Diffon 08-06-2023 Basophil, Absolute 0.1 10 3/mcL Normal 0.0-0.2 [facility] ([place] Comment on above: Performed By: #### A SHANTE, LIPID, ADIFF, A1C, CBC #### [address] [address] Basophils/100 WBC (Bld) 0.9 % Normal 0.0-2.5 [facility] ([place]) Comment on above: Performed By: #### A SHANTE, LIPID, ADIFF, A1C, CBC #### [address] [address] Eosinophil, Absolute 0.1 10 3/mcL Normal 0.0-0.4 [facility] ([place]) Comment on above: Performed By: #### A SHANTE, LIPID, ADIFF, A1C, CBC #### [address] [address] Eosinophils/100 WBC (Bld) 2.0 % Normal 0.0-7.0 [facility] ([place]) Comment on above: Performed By: #### A SHANTE, LIPID, ADIFF, A1C, CBC #### [address] [address] Lymphocyte, Absolute 1.8 10 3/mcL Normal 0.8-3.9 [facility] ([place]) Comment on above: Performed By: #### A SHANTE, LIPID, ADIFF, A1C, CBC #### [address] [address] Lymphocytes/100 WBC (Bld) 28.9 % Normal 10.0-50.0 [facility] ([place]) Comment on above: Performed By: #### A SHANTE, LIPID, ADIFF, A1C, CBC #### [address] [address] Monocyte, Absolute 0.6 10 3/mcL Normal 0.2-1.0 [facility] ([place] Comment on above: Performed By: #### A SHANTE, LIPID, ADIFF, A1C, CBC #### [address] [address] Monocytes/100 WBC (Bld) 9.6 % Normal 1.7-13.0 [facility] ([place]) Comment on above: Performed By: #### A SHANTE, LIPID, ADIFF, A1C, CBC #### [address] [address] Neutrophils/100 WBC (Bld) 58.6 % Normal 37.0-80.0 [facility] ([place]) Comment on above: Performed By: #### A SHANTE, LIPID, ADIFF, A1C, CBC #### [address] [address] .NEUABSon 08-06-2023 Neutrophil, Absolute 3.7 10 3/mcL Normal 2.9-6.2 [facility] ([place]) Comment on above: Performed By: #### A SHANTE, LIPID, ADIFF, A1C, CBC #### [address] [address] A1Con 08-06-2023 HbA1c (Bld) [Mass fraction] 5.8 % Normal 4.3-6.4 [facility] ([place]) Comment on above: Performed By: #### A SHANTE, LIPID, ADIFF, A1C, CBC #### [address] [address] CBCon 08-06-2023 Erythrocyte distribution width (RBC) [Ratio] 12.7 % Normal 11.5-14.5 [facility] ([place]) Comment on above: Performed By: #### A SHANTE, LIPID, ADIFF, A1C, CBC #### [address] [address] Hematocrit (Bld) [Volume fraction] 44.7 % Normal 42.0-52.0 [facility] ([place]) Comment on above: Performed By: #### A SHANTE, LIPID, ADIFF, A1C, CBC #### [address] [address] Hgb 15.3 G/dL Normal 14.0-18.0 [facility] ([place]) Comment on above: Performed By: #### A SHANTE, LIPID, ADIFF, A1C, CBC #### [address] [address] MCH (RBC) [Entitic mass] 30.4 pg Normal 27.0-31.2 [facility] ([place]) Comment on above: Performed By: #### A SHANTE, LIPID, ADIFF, A1C, CBC #### [address] [address] MCHC 34.2 G/dL Normal 31.8-35.4 [facility] ([place]) Comment on above: Performed By: #### A SHANTE, LIPID, ADIFF, A1C, CBC #### [address] [address] MCV (RBC) [Entitic vol] 88.8 fL Normal 80.0-94.0 [facility] ([place]) Comment on above: Performed By: #### A SHANTE, LIPID, ADIFF, A1C, CBC #### [address] [address] Platelet 284 10 3/mcL Normal 130-400 [facility] ([place]) Comment on above: Performed By: #### A SHANTE, LIPID, ADIFF, A1C, CBC #### [address] [address] Platelet mean volume (Bld) [Entitic vol] 8.1 fL Normal 7.4-10.4 [facility] ([place]) Comment on above: Performed By: #### A SHANTE, LIPID, ADIFF, A1C, CBC #### [address] [address] RBC 5.04 10 6/mcL Normal 4.04-6.13 [facility] ([place]) Comment on above: Performed By: #### A SHANTE, LIPID, ADIFF, A1C, CBC #### [address] [address] WBC 6.2 10 3/mcL Normal 4.6-10.8 [facility] ([place]) Comment on above: Performed By: #### A SHANTE, LIPID, ADIFF, A1C, CBC #### [address] [address] LABORATORYOrdered By: SYSTEM SYSTEM on 08-06-2023 Basophil, Absolute 0.1 103/mcL Invalid Interpretation Code 0.0 - 0.2 10^3/mcL AO Workflow SS Basophils/100 WBC (Bld) 0.9 % Invalid Interpretation Code 0.0 - 2.5 % AO Workflow SS Eosinophil, Absolute 0.1 103/mcL Invalid Interpretation Code 0.0 - 0.4 10^3/mcL AO Workflow SS Eosinophils/100 WBC (Bld) 2.0 % Invalid Interpretation Code 0.0 - 7.0 % AO Workflow SS Erythrocyte distribution width (RBC) [Ratio] 12.7 % Invalid Interpretation Code 11.5 - 14.5 % AO Workflow SS HbA1c (Bld) [Mass fraction] 5.8 % Invalid Interpretation Code 4.3 - 6.4 % AO ADM SS Hematocrit (Bld) [Volume fraction] 44.7 % Invalid Interpretation Code 42.0 - 52.0 % AO Workflow SS Hemoglobin (Bld) [Mass/Vol] 15.3 G/dL Invalid Interpretation Code 14.0 - 18.0 G/dL AO Workflow SS Lymphocyte, Absolute 1.8 103/mcL Invalid Interpretation Code 0.8 - 3.9 10^3/mcL AO Workflow SS Lymphocytes/100 WBC (Bld) 28.9 % Invalid Interpretation Code 10.0 - 50.0 % AO Workflow SS MCH (RBC) [Entitic mass] 30.4 pg Invalid Interpretation Code 27.0 - 31.2 pg AO Workflow SS MCHC 34.2 G/dL Invalid Interpretation Code 31.8 - 35.4 G/dL AO Workflow SS MCV (RBC) [Entitic vol] 88.8 fL Invalid Interpretation Code 80.0 - 94.0 fL AO Workflow SS Monocyte, Absolute 0.6 103/mcL Invalid Interpretation Code 0.2 - 1.0 10^3/mcL AO Workflow SS Monocytes/100 WBC (Bld) 9.6 % Invalid Interpretation Code 1.7 - 13.0 % AO Workflow SS Neutrophil, Absolute 3.7 103/mcL Invalid Interpretation Code 2.9 - 6.2 10^3/mcL AO Workflow SS Neutrophils/100 WBC (Bld) 58.6 % Invalid Interpretation Code 37.0 - 80.0 % AO Workflow SS Platelet mean volume (Bld) [Entitic vol] 8.1 fL Invalid Interpretation Code 7.4 - 10.4 fL AO Workflow SS Platelets (Bld) [#/Vol] 284 103/mcL Invalid Interpretation Code 130 - 400 10^3/mcL AO Workflow SS RBC (Bld) [#/Vol] 5.04 106/mcL Invalid Interpretation Code 4.04 - 6.13 10^6/mcL AO Workflow SS WBC (Bld) [#/Vol] 6.2 103/mcL Invalid Interpretation Code 4.6 - 10.8 10^3/mcL AO Workflow SS LABORATORYOrdered By: Griselda Smith on 08-06-2023 Cholesterol [Mass/Vol] 167 mg/dL Invalid Interpretation Code 0 - 200 mg/dL AO ADM SS Comment on above: Interpretive Data: C holesterol Reference Interval: Less than 200 Desirable 200-239 Borderline high risk 240 and above High risk Cholesterol in HDL [Mass/Vol] 57 mg/dL Invalid Interpretation Code 40 - 60 mg/dL AO ADM SS Cholesterol in LDL [Mass/Vol] 95 mg/dL Invalid Interpretation Code 0 - 130 mg/dL AO ADM SS Triglyceride [Mass/Vol] 76 mg/dL Invalid Interpretation Code 0 - 150 mg/dL AO ADM SS Comment on above: Interpretive Data: T riglyceride Reference Interval: Less than 150 Normal 150-199 Borderline high risk 200-499 High risk 500 or higher Very high risk LIPIDon 08-06-2023 Cholesterol [Mass/Vol] 167 mg/dL Normal 0-200 [facility] ([place]) Comment on above: Result Comment: Chol esterol Reference Interval: Less than 200 Desirable 200-239 Borderline high risk 240 and above High risk Performed By: #### A SHANTE, LIPID, ADIFF, A1C, CBC #### [address] [address] Cholesterol in HDL [Mass/Vol] 57 mg/dL Normal 40-60 [facility] ([place]) Comment on above: Performed By: #### A SHANTE, LIPID, ADIFF, A1C, CBC #### [address] [address] Cholesterol in LDL [Mass/Vol] 95 mg/dL Normal 0-130 [facility] ([place]) Comment on above: Performed By: #### A SHANTE, LIPID, ADIFF, A1C, CBC #### [address] [address] Triglyceride [Mass/Vol] 76 mg/dL Normal 0-150 [facility] ([place]) Comment on above: Result Comment: Trig lyceride Reference Interval: Less than 150 Normal 150-199 Borderline high risk 200-499 High risk 500 or higher Very high risk Performed By: #### A SHANTE, LIPID, ADIFF, A1C, CBC #### [address] [address] .Auto Diffon 07-06-2023 Basophil, Absolute 0.1 10 3/mcL Normal 0.0-0.2 [facility] ([place]) Comment on above: Performed By: #### A SHANTE, CBC, ADIFF, LD #### [place] [address] #### DATIGG, HAPTO #### [address] [address] Basophils/100 WBC (Bld) 1.0 % Normal 0.0-2.5 [facility] ([place]) Comment on above: Performed By: #### A SHANTE, CBC, ADIFF, LD #### [place] [address] #### DATIGG, HAPTO #### [address] [address] Eosinophil, Absolute 0.2 10 3/mcL Normal 0.0-0.4 [facility] ([place]) Comment on above: Performed By: #### A SHANTE, CBC, ADIFF, LD #### [place] [address] #### DATIGG, HAPTO #### [address] [address] Eosinophils/100 WBC (Bld) 2.9 % Normal 0.0-7.0 [facility] ([place]) Comment on above: Performed By: #### A SHANTE, CBC, ADIFF, LD #### [place] [address] #### DATIGG, HAPTO #### [address] [address] Lymphocyte, Absolute 1.6 10 3/mcL Normal 0.8-3.9 [facility] ([place]) Comment on above: Performed By: #### A SHANTE, CBC, ADIFF, LD #### [place] [address] #### DATIGG, HAPTO #### [address] [address] Lymphocytes/100 WBC (Bld) 26.6 % Normal 10.0-50.0 [facility] ([place]) Comment on above: Performed By: #### A SHANTE, CBC, ADIFF, LD #### [place] [address] #### DATIGG, HAPTO #### [address] [address] Monocyte, Absolute 0.5 10 3/mcL Normal 0.2-1.0 [facility] ([place]) Comment on above: Performed By: #### A SHANTE, CBC, ADIFF, LD #### [address] [address] #### DATIGG, HAPTO #### [address] [address] Monocytes/100 WBC (Bld) 8.7 % Normal 1.7-13.0 [facility] ([place]) Comment on above: Performed By: #### A SHANTE, CBC, ADIFF, LD #### [place] [address] #### DATIGG, HAPTO #### [address] [address] Neutrophils/100 WBC (Bld) 60.8 % Normal 37.0-80.0 [facility] ([place]) Comment on above: Performed By: #### A SHANTE, CBC, ADIFF, LD #### [place] [address] #### DATIGG, HAPTO #### [address] [address] .NEUABSon 07-06-2023 Neutrophil, Absolute 3.6 10 3/mcL Normal 2.9-6.2 [facility] ([place]) Comment on above: Performed By: #### A SHANTE, LIPID, ADIFF, A1C, CBC #### [address] [address] CBCon 07-06-2023 Erythrocyte distribution width (RBC) [Ratio] 12.9 % Normal 11.5-14.5 [facility] ([place]) Comment on above: Performed By: #### A SHANTE, CBC, ADIFF, LD #### [place] [address] #### DATIGG, HAPTO #### [address] [address] Hematocrit (Bld) [Volume fraction] 45.6 % Normal 42.0-52.0 [facility] ([place]) Comment on above: Performed By: #### A SHANTE, CBC, ADIFF, LD #### [place] [address] #### DATIGG, HAPTO #### [address] [address] Hgb 15.5 G/dL Normal 14.0-18.0 [facility] ([place]) Comment on above: Performed By: #### A SHANTE, CBC, ADIFF, LD #### [place] [address] #### DATIGG, HAPTO #### [place] [address] MCH (RBC) [Entitic mass] 30.2 pg Normal 27.0-31.2 [facility] ([place] Comment on above: Performed By: #### A SHANTE, CBC, ADIFF, LD #### [place] [address] #### DATIGG, HAPTO #### [place] [address] MCHC 34.1 G/dL Normal 31.8-35.4 [facility] ([place]) Comment on above: Performed By: #### A SHANTE, CBC, ADIFF, LD #### [place] [address] #### DATIGG, HAPTO #### [place] [address] MCV (RBC) [Entitic vol] 88.6 fL Normal 80.0-94.0 [facility] ([place]) Comment on above: Performed By: #### A SHANTE, CBC, ADIFF, LD #### [place] [address] #### DATIGG, HAPTO #### [place] [address] Platelet 260 10 3/mcL Normal 130-400 [facility] ([place]) Comment on above: Performed By: #### A SHANTE, CBC, ADIFF, LD #### [place] [address] #### DATIGG, HAPTO #### [address] [address] Platelet mean volume (Bld) [Entitic vol] 7.9 fL Normal 7.4-10.4 [facility] ([place]) Comment on above: Performed By: #### A SHANTE, CBC, ADIFF, LD #### [place] [address] #### DATIGG, HAPTO #### [address] [address] RBC 5.14 10 6/mcL Normal 4.04-6.13 [facility] ([place]) Comment on above: Performed By: #### A SHANTE, CBC, ADIFF, LD #### [place] [address] #### DATIGG, HAPTO #### [place] [address] WBC 6.0 10 3/mcL Normal 4.6-10.8 [facility] ([place]) Comment on above: Performed By: #### A SHANTE, CBC, ADIFF, LD #### [place] [address] #### DATIGG, HAPTO #### [place] [address] LOCO Con 07-06-2023 LOCO Complement Negative Normal [facility] ([place]) Comment on above: Performed By: #### D ATC #### [place] [id number] DATIGGon 07-06-2023 LOCO IgG Interp (Gel) Positive Normal [facility] ([place]) Comment on above: Performed By: #### A SHANTE, LIPID, ADIFF, A1C, CBC #### [address] [address] HAPTOon 07-06-2023 Haptoglobin 122 mg/dL Normal 40-280 [facility] ([place]) Comment on above: Result Comment: No te - New Reference Range in effect 20 Performed By: #### A SHANTE, LIPID, ADIFF, A1C, CBC #### [address] [place], [place] [address] LABORATORYOrdered By: SYSTEM SYSTEM on 07-06-2023 Immature reticulocytes/Total reticulocytes (Bld) 0.39 IRF Invalid Interpretation Code 0.20 - 0.46 IRF AO Workflow SS Reticulocytes, Auto 1.5 1 Invalid Interpretation Code 0.2 - 2.3 % AO Workflow SS Basophil, Absolute 0.1 103/mcL Invalid Interpretation Code 0.0 - 0.2 10^3/mcL AO Workflow SS Basophils/100 WBC (Bld) 1.0 % Invalid Interpretation Code 0.0 - 2.5 % AO Workflow SS Eosinophil, Absolute 0.2 103/mcL Invalid Interpretation Code 0.0 - 0.4 10^3/mcL AO Workflow SS Eosinophils/100 WBC (Bld) 2.9 % Invalid Interpretation Code 0.0 - 7.0 % AO Workflow SS Erythrocyte distribution width (RBC) [Ratio] 12.9 % Invalid Interpretation Code 11.5 - 14.5 % AO Workflow SS Haptoglobin [Mass/Vol] 122 mg/dL Invalid Interpretation Code 40 - 280 mg/dL AH ADM SS Comment on above: Interpretive Data: * *Note - New Reference Range in effect 20 Hematocrit (Bld) [Volume fraction] 45.6 % Invalid Interpretation Code 42.0 - 52.0 % AO Workflow SS Hemoglobin (Bld) [Mass/Vol] 15.5 G/dL Invalid Interpretation Code 14.0 - 18.0 G/dL AO Workflow SS LDH [Catalytic activity/Vol] 125 U/L Invalid Interpretation Code 85 - 227 U/L AO ADM SS Lymphocyte, Absolute 1.6 103/mcL Invalid Interpretation Code 0.8 - 3.9 10^3/mcL AO Workflow SS Lymphocytes/100 WBC (Bld) 26.6 % Invalid Interpretation Code 10.0 - 50.0 % AO Workflow SS MCH (RBC) [Entitic mass] 30.2 pg Invalid Interpretation Code 27.0 - 31.2 pg AO Workflow SS MCHC 34.1 G/dL Invalid Interpretation Code 31.8 - 35.4 G/dL AO Workflow SS MCV (RBC) [Entitic vol] 88.6 fL Invalid Interpretation Code 80.0 - 94.0 fL AO Workflow SS Monocyte, Absolute 0.5 103/mcL Invalid Interpretation Code 0.2 - 1.0 10^3/mcL AO Workflow SS Monocytes/100 WBC (Bld) 8.7 % Invalid Interpretation Code 1.7 - 13.0 % AO Workflow SS Neutrophil, Absolute 3.6 103/mcL Invalid Interpretation Code 2.9 - 6.2 10^3/mcL AO Workflow SS Neutrophils/100 WBC (Bld) 60.8 % Invalid Interpretation Code 37.0 - 80.0 % AO Workflow SS Platelet mean volume (Bld) [Entitic vol] 7.9 fL Invalid Interpretation Code 7.4 - 10.4 fL AO Workflow SS Platelets (Bld) [#/Vol] 260 103/mcL Invalid Interpretation Code 130 - 400 10^3/mcL AO Workflow SS RBC (Bld) [#/Vol] 5.14 106/mcL Invalid Interpretation Code 4.04 - 6.13 10^6/mcL AO Workflow SS WBC (Bld) [#/Vol] 6.0 103/mcL Invalid Interpretation Code 4.6 - 10.8 10^3/mcL AO Workflow SS LABORATORYOrdered By: Angella Katz on 07-06-2023 Direct antiglobulin test.complement specific reagent Ql (RBC) Negative (07/06/23 9:06 AM) Invalid Interpretation Code [facility] Manual SS LABORATORYOrdered By: Pat Sandoval on 07-06-2023 Direct antiglobulin test.IgG specific reagent Ql (RBC) Positive (07/06/23 9:06 AM) Invalid Interpretation Code BB Auto SS LDHon 07-06-2023 LDH 125 U/L Normal 85-227 [facility] ([place]) Comment on above: Performed By: #### A SHANTE, LIPID, ADIFF, A1C, CBC #### [address] [address] RETO (AO)on 07-06-2023 Immature Retic Fraction 0.39 IRF Normal 0.20-0.46 [facility] ([place]) Comment on above: Performed By: #### R ETO #### [address] [address] Reticulocytes, Auto 1.5 % Normal 0.2-2.3 [facility] ([place]) Comment on above: Performed By: #### R ETO #### [address] [place] [id number] LABORATORYOrdered By: SYSTEM SYSTEM on 03-15-2023 Albumin BCP dye [Mass/Vol] 4.0 G/dL Invalid Interpretation Code 3.4 - 4.8 G/dL AO ADM SS Albumin/Globulin [Mass ratio] 1.3 {ratio} Invalid Interpretation Code 1.1 - 2.5 ratio AO ADM SS ALP [Catalytic activity/Vol] 139 U/L Invalid Interpretation Code 40 - 135 U/L AO ADM SS ALT With P-5'-P [Catalytic activity/Vol] 33 U/L Invalid Interpretation Code 16 - 63 U/L AO ADM SS AST With P-5'-P [Catalytic activity/Vol] 19 U/L Invalid Interpretation Code 10 - 40 U/L AO ADM SS Bilirubin [Mass/Vol] 0.6 mg/dL Invalid Interpretation Code 0.2 - 1.0 mg/dL AO ADM SS Calcium [Mass/Vol] 9.4 mg/dL Invalid Interpretation Code 8.4 - 10.2 mg/dL AO ADM SS Chloride [Moles/Vol] 104 mmol/L Invalid Interpretation Code 98 - 107 mmol/L AO ADM SS CO2 [Moles/Vol] 30 mmol/L Invalid Interpretation Code 23 - 31 mmol/L AO ADM SS Creatinine [Mass/Vol] 0.89 mg/dL Invalid Interpretation Code 0.70 - 1.30 mg/dL AO ADM SS Electrolyte Balance 7.0 mEq/L Invalid Interpretation Code 4.0 - 15.0 mEq/L AO ADM SS GFR/1.73 sq M.predicted among blacks MDRD (S/P/Bld) [Vol rate/Area] 104 ml/min/1.73sqm Invalid Interpretation Code AO Chemistry S GFR/1.73 sq M.predicted among non-blacks MDRD (S/P/Bld) [Vol rate/Area] 86 ml/min/1.73sqm Invalid Interpretation Code AO Chemistry S Globulin 3.0 G/dL Invalid Interpretation Code AO ADM SS Glucose [Mass/Vol] 107 mg/dL Invalid Interpretation Code 80 - 115 mg/dL AO ADM SS Potassium [Moles/Vol] 4.0 mmol/L Invalid Interpretation Code 3.5 - 5.1 mmol/L AO ADM SS Protein [Mass/Vol] 7.0 G/dL Invalid Interpretation Code 6.4 - 8.2 G/dL AO ADM SS Sodium [Moles/Vol] 141 mmol/L Invalid Interpretation Code 136 - 145 mmol/L AO ADM SS Urea nitrogen [Mass/Vol] 20 mg/dL Invalid Interpretation Code 7 - 18 mg/dL AO ADM SS Urea nitrogen/Creatinine [Mass ratio] 22 ratio Invalid Interpretation Code 7 - 27 ratio AO ADM SS LABORATORYOrdered By: Elida Man on 01-05-2023 Immature reticulocytes/Total reticulocytes (Bld) 0.36 IRF Invalid Interpretation Code 0.20 - 0.46 IRF AO Workflow SS Reticulocytes, Auto 1.7 1 Invalid Interpretation Code 0.2 - 2.3 % AO Workflow SS Basophil, Absolute 0.1 103/mcL Invalid Interpretation Code 0.0 - 0.2 10^3/mcL AO Workflow SS Basophils/100 WBC (Bld) 1.3 % Invalid Interpretation Code 0.0 - 2.5 % AO Workflow SS Eosinophil, Absolute 0.1 103/mcL Invalid Interpretation Code 0.0 - 0.4 10^3/mcL AO Workflow SS Eosinophils/100 WBC (Bld) 2.7 % Invalid Interpretation Code 0.0 - 7.0 % AO Workflow SS Erythrocyte distribution width (RBC) [Ratio] 12.7 % Invalid Interpretation Code 11.5 - 14.5 % AO Workflow SS Hematocrit (Bld) [Volume fraction] 45.4 % Invalid Interpretation Code 42.0 - 52.0 % AO Workflow SS Hemoglobin (Bld) [Mass/Vol] 15.7 G/dL Invalid Interpretation Code 14.0 - 18.0 G/dL AO Workflow SS Lymphocyte, Absolute 1.6 103/mcL Invalid Interpretation Code 0.8 - 3.9 10^3/mcL AO Workflow SS Lymphocytes/100 WBC (Bld) 28.2 % Invalid Interpretation Code 10.0 - 50.0 % AO Workflow SS MCH (RBC) [Entitic mass] 30.6 pg Invalid Interpretation Code 27.0 - 31.2 pg AO Workflow SS MCHC 34.6 G/dL Invalid Interpretation Code 31.8 - 35.4 G/dL AO Workflow SS MCV (RBC) [Entitic vol] 88.5 fL Invalid Interpretation Code 80.0 - 94.0 fL AO Workflow SS Monocyte, Absolute 0.5 103/mcL Invalid Interpretation Code 0.2 - 1.0 10^3/mcL AO Workflow SS Monocytes/100 WBC (Bld) 9.1 % Invalid Interpretation Code 1.7 - 13.0 % AO Workflow SS Neutrophil, Absolute 3.2 103/mcL Invalid Interpretation Code 2.9 - 6.2 10^3/mcL AO Workflow SS Neutrophils/100 WBC (Bld) 58.7 % Invalid Interpretation Code 37.0 - 80.0 % AO Workflow SS Platelet mean volume (Bld) [Entitic vol] 7.8 fL Invalid Interpretation Code 7.4 - 10.4 fL AO Workflow SS Platelets (Bld) [#/Vol] 292 103/mcL Invalid Interpretation Code 130 - 400 10^3/mcL AO Workflow SS RBC (Bld) [#/Vol] 5.13 106/mcL Invalid Interpretation Code 4.04 - 6.13 10^6/mcL AO Workflow SS WBC (Bld) [#/Vol] 5.5 103/mcL Invalid Interpretation Code 4.6 - 10.8 10^3/mcL AO Workflow SS LABORATORYOrdered By: SYSTEM SYSTEM on 01-05-2023 Albumin BCP dye [Mass/Vol] 4.1 G/dL Invalid Interpretation Code 3.4 - 4.8 G/dL AO ADM SS Albumin/Globulin [Mass ratio] 1.4 {ratio} Invalid Interpretation Code 1.1 - 2.5 ratio AO ADM SS ALP [Catalytic activity/Vol] 124 U/L Invalid Interpretation Code 40 - 135 U/L AO ADM SS ALT With P-5'-P [Catalytic activity/Vol] 35 U/L Invalid Interpretation Code 16 - 63 U/L AO ADM SS AST With P-5'-P [Catalytic activity/Vol] 18 U/L Invalid Interpretation Code 10 - 40 U/L AO ADM SS Bili Indirect 0.3 mg/dL Invalid Interpretation Code AO Chemistry S Bilirubin [Mass/Vol] 0.4 mg/dL Invalid Interpretation Code 0.2 - 1.0 mg/dL AO ADM SS Bilirubin.direct [Mass/Vol] 0.1 mg/dL Invalid Interpretation Code 0.0 - 0.2 mg/dL AO ADM SS Calcium [Mass/Vol] 9.1 mg/dL Invalid Interpretation Code 8.4 - 10.2 mg/dL AO ADM SS Chloride [Moles/Vol] 103 mmol/L Invalid Interpretation Code 98 - 107 mmol/L AO ADM SS CO2 [Moles/Vol] 29 mmol/L Invalid Interpretation Code 23 - 31 mmol/L AO ADM SS Creatinine [Mass/Vol] 0.80 mg/dL Invalid Interpretation Code 0.70 - 1.30 mg/dL AO ADM SS Electrolyte Balance 8.0 mEq/L Invalid Interpretation Code 4.0 - 15.0 mEq/L AO ADM SS Ferritin [Mass/Vol] 465.0 ng/mL Invalid Interpretation Code 26.0 - 388.0 ng/mL AO ADM SS GFR 118 ml/min/1.73sqm Invalid Interpretation Code AO Chemistry S GFR Non- 97 ml/min/1.73sqm Invalid Interpretation Code AO Chemistry S Globulin 2.9 G/dL Invalid Interpretation Code AO ADM SS Glucose [Mass/Vol] 108 mg/dL Invalid Interpretation Code 80 - 115 mg/dL AO ADM SS Haptoglobin [Mass/Vol] 112 mg/dL Invalid Interpretation Code 40 - 280 mg/dL AH ADM SS Iron [Mass/Vol] 163 ug/dL Invalid Interpretation Code 65 - 175 mcg/dL AO ADM SS Iron binding capacity [Mass/Vol] 260 mcg/dL Invalid Interpretation Code 250 - 450 mcg/dL AO ADM SS Iron Sat 63 1 Invalid Interpretation Code AO ADM SS LDH [Catalytic activity/Vol] 120 U/L Invalid Interpretation Code 85 - 227 U/L AO ADM SS Potassium [Moles/Vol] 4.3 mmol/L Invalid Interpretation Code 3.5 - 5.1 mmol/L AO ADM SS Protein [Mass/Vol] 7.0 G/dL Invalid Interpretation Code 6.4 - 8.2 G/dL AO ADM SS Sodium [Moles/Vol] 140 mmol/L Invalid Interpretation Code 136 - 145 mmol/L AO ADM SS Urea nitrogen [Mass/Vol] 17 mg/dL Invalid Interpretation Code 7 - 18 mg/dL AO ADM SS Urea nitrogen/Creatinine [Mass ratio] 21 ratio Invalid Interpretation Code 7 - 27 ratio AO ADM SS LABORATORYOrdered By: SYSTEM SYSTEM on 12-08-2022 Albumin BCP dye [Mass/Vol] 3.8 G/dL Invalid Interpretation Code 3.4 - 4.8 G/dL AO ADM SS Albumin/Globulin [Mass ratio] 1.3 {ratio} Invalid Interpretation Code 1.1 - 2.5 ratio AO ADM SS ALP [Catalytic activity/Vol] 118 U/L Invalid Interpretation Code 40 - 135 U/L AO ADM SS ALT With P-5'-P [Catalytic activity/Vol] 44 U/L Invalid Interpretation Code 16 - 63 U/L AO ADM SS AST With P-5'-P [Catalytic activity/Vol] 21 U/L Invalid Interpretation Code 10 - 40 U/L AO ADM SS Bilirubin [Mass/Vol] 0.4 mg/dL Invalid Interpretation Code 0.2 - 1.0 mg/dL AO ADM SS Calcium [Mass/Vol] 8.6 mg/dL Invalid Interpretation Code 8.4 - 10.2 mg/dL AO ADM SS Chloride [Moles/Vol] 106 mmol/L Invalid Interpretation Code 98 - 107 mmol/L AO ADM SS CO2 [Moles/Vol] 29 mmol/L Invalid Interpretation Code 23 - 31 mmol/L AO ADM SS Creatinine [Mass/Vol] 0.84 mg/dL Invalid Interpretation Code 0.70 - 1.30 mg/dL AO ADM SS Electrolyte Balance 8.0 mEq/L Invalid Interpretation Code 4.0 - 15.0 mEq/L AO ADM SS GFR 111 ml/min/1.73sqm Invalid Interpretation Code AO Chemistry S GFR Non- 92 ml/min/1.73sqm Invalid Interpretation Code AO Chemistry S Globulin 3.0 G/dL Invalid Interpretation Code AO ADM SS Glucose [Mass/Vol] 104 mg/dL Invalid Interpretation Code 80 - 115 mg/dL AO ADM SS Potassium [Moles/Vol] 4.4 mmol/L Invalid Interpretation Code 3.5 - 5.1 mmol/L AO ADM SS Prostate specific Ag [Mass/Vol] 0.95 ng/mL Invalid Interpretation Code 0.00 - 4.00 ng/mL AO ADM SS Protein [Mass/Vol] 6.8 G/dL Invalid Interpretation Code 6.4 - 8.2 G/dL AO ADM SS Sodium [Moles/Vol] 143 mmol/L Invalid Interpretation Code 136 - 145 mmol/L AO ADM SS Urea nitrogen [Mass/Vol] 20 mg/dL Invalid Interpretation Code 7 - 18 mg/dL AO ADM SS Urea nitrogen/Creatinine [Mass ratio] 24 ratio Invalid Interpretation Code 7 - 27 ratio AO ADM SS LABORATORYOrdered By: Jos Howard on 12-08-2022 Basophil, Absolute 0.1 103/mcL Invalid Interpretation Code 0.0 - 0.2 10^3/mcL AO Workflow SS Basophils/100 WBC (Bld) 0.8 % Invalid Interpretation Code 0.0 - 2.5 % AO Workflow SS Cholesterol [Mass/Vol] 211 mg/dL Invalid Interpretation Code 0 - 200 mg/dL AO ADM SS Cholesterol in HDL [Mass/Vol] 60 mg/dL Invalid Interpretation Code 40 - 60 mg/dL AO ADM SS Cholesterol in LDL [Mass/Vol] 127 mg/dL Invalid Interpretation Code 0 - 130 mg/dL AO ADM SS Eosinophil, Absolute 0.2 103/mcL Invalid Interpretation Code 0.0 - 0.4 10^3/mcL AO Workflow SS Eosinophils/100 WBC (Bld) 2.9 % Invalid Interpretation Code 0.0 - 7.0 % AO Workflow SS Erythrocyte distribution width (RBC) [Ratio] 12.9 % Invalid Interpretation Code 11.5 - 14.5 % AO Workflow SS Hematocrit (Bld) [Volume fraction] 47.4 % Invalid Interpretation Code 42.0 - 52.0 % AO Workflow SS Hemoglobin (Bld) [Mass/Vol] 16.0 G/dL Invalid Interpretation Code 14.0 - 18.0 G/dL AO Workflow SS Lymphocyte, Absolute 2.1 103/mcL Invalid Interpretation Code 0.8 - 3.9 10^3/mcL AO Workflow SS Lymphocytes/100 WBC (Bld) 34.2 % Invalid Interpretation Code 10.0 - 50.0 % AO Workflow SS MCH (RBC) [Entitic mass] 30.1 pg Invalid Interpretation Code 27.0 - 31.2 pg AO Workflow SS MCHC 33.7 G/dL Invalid Interpretation Code 31.8 - 35.4 G/dL AO Workflow SS MCV (RBC) [Entitic vol] 89.2 fL Invalid Interpretation Code 80.0 - 94.0 fL AO Workflow SS Monocyte, Absolute 0.6 103/mcL Invalid Interpretation Code 0.2 - 1.0 10^3/mcL AO Workflow SS Monocytes/100 WBC (Bld) 9.7 % Invalid Interpretation Code 1.7 - 13.0 % AO Workflow SS Neutrophil, Absolute 3.3 103/mcL Invalid Interpretation Code 2.9 - 6.2 10^3/mcL AO Workflow SS Neutrophils/100 WBC (Bld) 52.4 % Invalid Interpretation Code 37.0 - 80.0 % AO Workflow SS Platelet mean volume (Bld) [Entitic vol] 7.8 fL Invalid Interpretation Code 7.4 - 10.4 fL AO Workflow SS Platelets (Bld) [#/Vol] 277 103/mcL Invalid Interpretation Code 130 - 400 10^3/mcL AO Workflow SS RBC (Bld) [#/Vol] 5.31 106/mcL Invalid Interpretation Code 4.04 - 6.13 10^6/mcL AO Workflow SS Triglyceride [Mass/Vol] 119 mg/dL Invalid Interpretation Code 0 - 150 mg/dL AO ADM SS WBC (Bld) [#/Vol] 6.3 103/mcL Invalid Interpretation Code 4.6 - 10.8 10^3/mcL AO Workflow SS LABORATORYOrdered By: Elpidio Keane on 07-10-2022 Albumin BCP dye [Mass/Vol] 4.0 G/dL Invalid Interpretation Code 3.4 - 4.8 G/dL AO ADM SS Albumin/Globulin [Mass ratio] 1.4 {ratio} Invalid Interpretation Code 1.1 - 2.5 ratio AO ADM SS ALP [Catalytic activity/Vol] 108 U/L Invalid Interpretation Code 40 - 135 U/L AO ADM SS ALT With P-5'-P [Catalytic activity/Vol] 35 U/L Invalid Interpretation Code 16 - 63 U/L AO ADM SS AST With P-5'-P [Catalytic activity/Vol] 16 U/L Invalid Interpretation Code 10 - 40 U/L AO ADM SS Bilirubin [Mass/Vol] 0.2 mg/dL Invalid Interpretation Code 0.2 - 1.0 mg/dL AO ADM SS Calcium [Mass/Vol] 8.8 mg/dL Invalid Interpretation Code 8.4 - 10.2 mg/dL AO ADM SS Chloride [Moles/Vol] 104 mmol/L Invalid Interpretation Code 98 - 107 mmol/L AO ADM SS CO2 [Moles/Vol] 28 mmol/L Invalid Interpretation Code 23 - 31 mmol/L AO ADM SS Creatinine [Mass/Vol] 0.85 mg/dL Invalid Interpretation Code 0.70 - 1.30 mg/dL AO ADM SS Electrolyte Balance 9.0 mEq/L Invalid Interpretation Code 4.0 - 15.0 mEq/L AO ADM SS Globulin 2.9 G/dL Invalid Interpretation Code AO ADM SS Glucose [Mass/Vol] 88 mg/dL Invalid Interpretation Code 80 - 115 mg/dL AO ADM SS LDH [Catalytic activity/Vol] 147 U/L Invalid Interpretation Code 85 - 227 U/L AO ADM SS Potassium [Moles/Vol] 4.2 mmol/L Invalid Interpretation Code 3.5 - 5.1 mmol/L AO ADM SS Protein [Mass/Vol] 6.9 G/dL Invalid Interpretation Code 6.4 - 8.2 G/dL AO ADM SS Sodium [Moles/Vol] 141 mmol/L Invalid Interpretation Code 136 - 145 mmol/L AO ADM SS Urea nitrogen [Mass/Vol] 20 mg/dL Invalid Interpretation Code 7 - 18 mg/dL AO ADM SS Urea nitrogen/Creatinine [Mass ratio] 24 ratio Invalid Interpretation Code 7 - 27 ratio AO ADM SS LABORATORYOrdered By: Radha Arguelles on 07-10-2022 Basophil, Absolute 0.1 103/mcL Invalid Interpretation Code 0.0 - 0.2 10^3/mcL AO Workflow SS Basophils/100 WBC (Bld) 1.2 % Invalid Interpretation Code 0.0 - 2.5 % AO Workflow SS Eosinophil, Absolute 0.2 103/mcL Invalid Interpretation Code 0.0 - 0.4 10^3/mcL AO Workflow SS Eosinophils/100 WBC (Bld) 2.5 % Invalid Interpretation Code 0.0 - 7.0 % AO Workflow SS Erythrocyte distribution width (RBC) [Ratio] 12.5 % Invalid Interpretation Code 11.5 - 14.5 % AO Workflow SS Hematocrit (Bld) [Volume fraction] 43.6 % Invalid Interpretation Code 42.0 - 52.0 % AO Workflow SS Hemoglobin (Bld) [Mass/Vol] 15.3 G/dL Invalid Interpretation Code 14.0 - 18.0 G/dL AO Workflow SS Immature reticulocytes/Total reticulocytes (Bld) 0.37 IRF Invalid Interpretation Code 0.20 - 0.46 IRF AO Workflow SS Lymphocyte, Absolute 1.9 103/mcL Invalid Interpretation Code 0.8 - 3.9 10^3/mcL AO Workflow SS Lymphocytes/100 WBC (Bld) 29.2 % Invalid Interpretation Code 10.0 - 50.0 % AO Workflow SS MCH (RBC) [Entitic mass] 30.8 pg Invalid Interpretation Code 27.0 - 31.2 pg AO Workflow SS MCHC 35.2 G/dL Invalid Interpretation Code 31.8 - 35.4 G/dL AO Workflow SS MCV (RBC) [Entitic vol] 87.4 fL Invalid Interpretation Code 80.0 - 94.0 fL AO Workflow SS Monocyte, Absolute 0.5 103/mcL Invalid Interpretation Code 0.2 - 1.0 10^3/mcL AO Workflow SS Monocytes/100 WBC (Bld) 8.3 % Invalid Interpretation Code 1.7 - 13.0 % AO Workflow SS Neutrophil, Absolute 3.8 103/mcL Invalid Interpretation Code 2.9 - 6.2 10^3/mcL AO Workflow SS Neutrophils/100 WBC (Bld) 58.8 % Invalid Interpretation Code 37.0 - 80.0 % AO Workflow SS Platelet mean volume (Bld) [Entitic vol] 7.8 fL Invalid Interpretation Code 7.4 - 10.4 fL AO Workflow SS Platelets (Bld) [#/Vol] 267 103/mcL Invalid Interpretation Code 130 - 400 10^3/mcL AO Workflow SS RBC (Bld) [#/Vol] 4.99 106/mcL Invalid Interpretation Code 4.04 - 6.13 10^6/mcL AO Workflow SS Reticulocytes, Auto 1.7 1 Invalid Interpretation Code 0.2 - 2.3 % AO Workflow SS WBC 6.4 103/mcL Invalid Interpretation Code 4.6 - 10.8 10^3/mcL AO Workflow SS LABORATORYOrdered By: SYSTEM SYSTEM on 07-10-2022 GFR 110 ml/min/1.73sqm Invalid Interpretation Code AO Chemistry S GFR Non- 90 ml/min/1.73sqm Invalid Interpretation Code AO Chemistry S Haptoglobin [Mass/Vol] 84 mg/dL Invalid Interpretation Code 40 - 280 mg/dL AH ADM SS LABORATORYOrdered By: Elpidio Keane on 06-12-2022 Creatinine [Mass/Vol] 1.04 mg/dL Invalid Interpretation Code 0.70 - 1.30 mg/dL AO ADM SS LABORATORYOrdered By: SYSTEM SYSTEM on 06-12-2022 GFR 87 ml/min/1.73sqm Invalid Interpretation Code AO Chemistry S GFR Non- 72 ml/min/1.73sqm Invalid Interpretation Code AO Chemistry S LABORATORYOrdered By: Elpidio Kelley on 03-16-2022 Albumin BCP dye [Mass/Vol] 3.9 G/dL Invalid Interpretation Code 3.4 - 4.8 G/dL AO ADM SS Albumin/Globulin [Mass ratio] 1.3 {ratio} Invalid Interpretation Code 1.1 - 2.5 ratio AO ADM SS ALP [Catalytic activity/Vol] 119 U/L Invalid Interpretation Code 40 - 135 U/L AO ADM SS ALT With P-5'-P [Catalytic activity/Vol] 32 U/L Invalid Interpretation Code 16 - 63 U/L AO ADM SS AST With P-5'-P [Catalytic activity/Vol] 18 U/L Invalid Interpretation Code 10 - 40 U/L AO ADM SS Bilirubin [Mass/Vol] 0.6 mg/dL Invalid Interpretation Code 0.2 - 1.0 mg/dL AO ADM SS Calcium [Mass/Vol] 8.8 mg/dL Invalid Interpretation Code 8.4 - 10.2 mg/dL AO ADM SS Chloride [Moles/Vol] 104 mmol/L Invalid Interpretation Code 98 - 107 mmol/L AO ADM SS Cholesterol [Mass/Vol] 177 mg/dL Invalid Interpretation Code 0 - 200 mg/dL AO ADM SS Cholesterol in HDL [Mass/Vol] 65 mg/dL Invalid Interpretation Code 40 - 60 mg/dL AO ADM SS Cholesterol in LDL [Mass/Vol] 96 mg/dL Invalid Interpretation Code 0 - 130 mg/dL AO ADM SS CO2 [Moles/Vol] 31 mmol/L Invalid Interpretation Code 23 - 31 mmol/L AO ADM SS Creatinine [Mass/Vol] 0.70 mg/dL Invalid Interpretation Code 0.70 - 1.30 mg/dL AO ADM SS Electrolyte Balance 7.0 mEq/L Invalid Interpretation Code 4.0 - 15.0 mEq/L AO ADM SS Globulin 3.1 G/dL Invalid Interpretation Code AO ADM SS Glucose [Mass/Vol] 107 mg/dL Invalid Interpretation Code 80 - 115 mg/dL AO ADM SS Potassium [Moles/Vol] 4.5 mmol/L Invalid Interpretation Code 3.5 - 5.1 mmol/L AO ADM SS Prostate specific Ag [Mass/Vol] 0.94 ng/mL Invalid Interpretation Code 0.00 - 4.00 ng/mL AO ADM SS Protein [Mass/Vol] 7.0 G/dL Invalid Interpretation Code 6.4 - 8.2 G/dL AO ADM SS Sodium [Moles/Vol] 142 mmol/L Invalid Interpretation Code 136 - 145 mmol/L AO ADM SS Triglyceride [Mass/Vol] 80 mg/dL Invalid Interpretation Code 0 - 150 mg/dL AO ADM SS Urea nitrogen [Mass/Vol] 15 mg/dL Invalid Interpretation Code 7 - 18 mg/dL AO ADM SS Urea nitrogen/Creatinine [Mass ratio] 21 ratio Invalid Interpretation Code 7 - 27 ratio AO ADM SS LABORATORYOrdered By: SYSTEM SYSTEM on 03-16-2022 GFR 138 ml/min/1.73sqm Invalid Interpretation Code AO Chemistry S GFR Non- 114 ml/min/1.73sqm Invalid Interpretation Code AO Chemistry S LABORATORYOrdered By: Elpidio Keane on 01-10-2022 Immature reticulocytes/Total reticulocytes (Bld) 0.36 IRF Invalid Interpretation Code 0.20 - 0.46 IRF AO Auto Heme SS Reticulocytes/100 RBC (Bld) 0.8 % Invalid Interpretation Code 0.2 - 2.3 % AO Auto Heme SS Basophil, Absolute 0.10 103/mcL Invalid Interpretation Code 0.00 - 0.19 10^3/mcL AO Auto Heme SS Basophils/100 WBC (Bld) 1.0 % Invalid Interpretation Code 0.0 - 2.5 % AO Auto Heme SS Eosinophil, Absolute 0.20 103/mcL Invalid Interpretation Code 0.00 - 0.40 10^3/mcL AO Auto Heme SS Eosinophils/100 WBC (Bld) 2.6 % Invalid Interpretation Code 0.0 - 7.0 % AO Auto Heme SS Erythrocyte distribution width (RBC) [Ratio] 12.3 % Invalid Interpretation Code 11.5 - 14.5 % AO Auto Heme SS Hematocrit (Bld) [Volume fraction] 45.0 % Invalid Interpretation Code 42.0 - 52.0 % AO Auto Heme SS Hemoglobin (Bld) [Mass/Vol] 15.4 G/dL Invalid Interpretation Code 14.0 - 18.0 G/dL AO Auto Heme SS Lymphocyte, Absolute 1.60 103/mcL Invalid Interpretation Code 0.77 - 3.85 10^3/mcL AO Auto Heme SS Lymphocytes/100 WBC (Bld) 27.9 % Invalid Interpretation Code 10.0 - 50.0 % AO Auto Heme SS MCH (RBC) [Entitic mass] 30.1 pg Invalid Interpretation Code 27.0 - 31.2 pg AO Auto Heme SS MCHC (RBC) [Mass/Vol] 34.3 G/dL Invalid Interpretation Code 31.8 - 35.4 G/dL AO Auto Heme SS MCV (RBC) [Entitic vol] 87.8 fL Invalid Interpretation Code 80.0 - 94.0 fL AO Auto Heme SS Monocyte, Absolute 0.50 103/mcL Invalid Interpretation Code 0.15 - 1.00 10^3/mcL AO Auto Heme SS Monocytes/100 WBC (Bld) 9.3 % Invalid Interpretation Code 1.7 - 13.0 % AO Auto Heme SS Neutrophil, Absolute 3.50 103/mcL Invalid Interpretation Code 2.85 - 6.16 10^3/mcL AO Auto Heme SS Neutrophils/100 WBC (Bld) 59.2 % Invalid Interpretation Code 37.0 - 80.0 % AO Auto Heme SS Platelet mean volume (Bld) [Entitic vol] 8.1 fL Invalid Interpretation Code 7.4 - 10.4 fL AO Auto Heme SS Platelets (Bld) [#/Vol] 275 103/mcL Invalid Interpretation Code 130 - 400 10^3/mcL AO Auto Heme SS RBC (Bld) [#/Vol] 5.13 106/mcL Invalid Interpretation Code 4.04 - 6.13 10^6/mcL AO Auto Heme SS WBC (Bld) [#/Vol] 5.80 103/mcL Invalid Interpretation Code 4.60 - 10.80 10^3/mcL AO Auto Heme SS LABORATORYOrdered By: Mae Alcantara on 01-10-2022 Albumin BCP dye [Mass/Vol] 4.0 G/dL Invalid Interpretation Code 3.4 - 4.8 G/dL AO ADM SS Albumin/Globulin [Mass ratio] 1.4 {ratio} Invalid Interpretation Code 1.1 - 2.5 ratio AO ADM SS ALP [Catalytic activity/Vol] 108 U/L Invalid Interpretation Code 40 - 135 U/L AO ADM SS ALT With P-5'-P [Catalytic activity/Vol] 48 U/L Invalid Interpretation Code 16 - 63 U/L AO ADM SS AST With P-5'-P [Catalytic activity/Vol] 24 U/L Invalid Interpretation Code 10 - 40 U/L AO ADM SS Bilirubin [Mass/Vol] 0.3 mg/dL Invalid Interpretation Code 0.2 - 1.0 mg/dL AO ADM SS Calcium [Mass/Vol] 8.7 mg/dL Invalid Interpretation Code 8.4 - 10.2 mg/dL AO ADM SS Chloride [Moles/Vol] 106 mmol/L Invalid Interpretation Code 98 - 107 mmol/L AO ADM SS CO2 [Moles/Vol] 30 mmol/L Invalid Interpretation Code 23 - 31 mmol/L AO ADM SS Creatinine [Mass/Vol] 0.76 mg/dL Invalid Interpretation Code 0.70 - 1.30 mg/dL AO ADM SS Electrolyte Balance 6.0 mEq/L Invalid Interpretation Code 4.0 - 15.0 mEq/L AO Chemistry S Globulin 2.8 G/dL Invalid Interpretation Code AO ADM SS Glucose [Mass/Vol] 87 mg/dL Invalid Interpretation Code 80 - 115 mg/dL AO ADM SS LDH [Catalytic activity/Vol] 144 U/L Invalid Interpretation Code 85 - 227 U/L AO ADM SS Potassium [Moles/Vol] 4.4 mmol/L Invalid Interpretation Code 3.5 - 5.1 mmol/L AO ADM SS Protein [Mass/Vol] 6.8 G/dL Invalid Interpretation Code 6.4 - 8.2 G/dL AO ADM SS Sodium [Moles/Vol] 142 mmol/L Invalid Interpretation Code 136 - 145 mmol/L AO ADM SS Urea nitrogen [Mass/Vol] 17 mg/dL Invalid Interpretation Code 7 - 18 mg/dL AO ADM SS Urea nitrogen/Creatinine [Mass ratio] 22 ratio Invalid Interpretation Code 7 - 27 ratio AO ADM SS LABORATORYOrdered By: SYSTEM SYSTEM on 01-10-2022 GFR 125 ml/min/1.73sqm Invalid Interpretation Code AO Chemistry S GFR Non- 103 ml/min/1.73sqm Invalid Interpretation Code AO Chemistry S Haptoglobin [Mass/Vol] 97 mg/dL Invalid Interpretation Code 40 - 280 mg/dL AH ADM SS LABORATORYOrdered By: Griselda Smith on 10-03-2021 Albumin BCP dye [Mass/Vol] 3.8 G/dL Invalid Interpretation Code 3.4 - 4.8 G/dL AO ADM SS Albumin/Globulin [Mass ratio] 1.2 {ratio} Invalid Interpretation Code 1.1 - 2.5 ratio AO ADM SS ALP [Catalytic activity/Vol] 116 U/L Invalid Interpretation Code 40 - 135 U/L AO ADM SS ALT With P-5'-P [Catalytic activity/Vol] 33 U/L Invalid Interpretation Code 16 - 63 U/L AO ADM SS AST With P-5'-P [Catalytic activity/Vol] 11 U/L Invalid Interpretation Code 10 - 40 U/L AO ADM SS Bilirubin [Mass/Vol] 0.5 mg/dL Invalid Interpretation Code 0.2 - 1.0 mg/dL AO ADM SS Calcium [Mass/Vol] 9.0 mg/dL Invalid Interpretation Code 8.4 - 10.2 mg/dL AO ADM SS Chloride [Moles/Vol] 102 mmol/L Invalid Interpretation Code 98 - 107 mmol/L AO ADM SS Cholesterol [Mass/Vol] 165 mg/dL Invalid Interpretation Code 0 - 200 mg/dL AO ADM SS Cholesterol in HDL [Mass/Vol] 54 mg/dL Invalid Interpretation Code 40 - 60 mg/dL AO ADM SS Cholesterol in LDL [Mass/Vol] 98 mg/dL Invalid Interpretation Code 0 - 130 mg/dL AO ADM SS CO2 [Moles/Vol] 28 mmol/L Invalid Interpretation Code 23 - 31 mmol/L AO ADM SS Creatinine [Mass/Vol] 0.91 mg/dL Invalid Interpretation Code 0.70 - 1.30 mg/dL AO ADM SS Electrolyte Balance 10.0 mEq/L Invalid Interpretation Code AO ADM SS Globulin 3.2 G/dL Invalid Interpretation Code AO ADM SS Glucose [Mass/Vol] 163 mg/dL Invalid Interpretation Code 80 - 115 mg/dL AO ADM SS Iron [Mass/Vol] 107 ug/dL Invalid Interpretation Code 65 - 175 mcg/dL AO ADM SS Iron binding capacity [Mass/Vol] 209 mcg/dL Invalid Interpretation Code 250 - 450 mcg/dL AO ADM SS LDH [Catalytic activity/Vol] 142 U/L Invalid Interpretation Code 85 - 227 U/L AO ADM SS Potassium [Moles/Vol] 4.0 mmol/L Invalid Interpretation Code 3.5 - 5.1 mmol/L AO ADM SS Protein [Mass/Vol] 7.0 G/dL Invalid Interpretation Code 6.4 - 8.2 G/dL AO ADM SS Sodium [Moles/Vol] 140 mmol/L Invalid Interpretation Code 136 - 145 mmol/L AO ADM SS Triglyceride [Mass/Vol] 66 mg/dL Invalid Interpretation Code 0 - 150 mg/dL AO ADM SS Urea nitrogen [Mass/Vol] 20 mg/dL Invalid Interpretation Code 7 - 18 mg/dL AO ADM SS Urea nitrogen/Creatinine [Mass ratio] 22 ratio Invalid Interpretation Code 7 - 27 ratio AO ADM SS LABORATORYOrdered By: Armida Tang on 10-03-2021 Basophil, Absolute 0.10 103/mcL Invalid Interpretation Code 0.00 - 0.19 10^3/mcL AO Auto Heme SS Basophils/100 WBC (Bld) 0.9 % Invalid Interpretation Code 0.0 - 2.5 % AO Auto Heme SS Eosinophil, Absolute 0.00 103/mcL Invalid Interpretation Code 0.00 - 0.40 10^3/mcL AO Auto Heme SS Eosinophils/100 WBC (Bld) 0.3 % Invalid Interpretation Code 0.0 - 7.0 % AO Auto Heme SS Erythrocyte distribution width (RBC) [Ratio] 12.8 % Invalid Interpretation Code 11.5 - 14.5 % AO Auto Heme SS Hematocrit (Bld) [Volume fraction] 42.3 % Invalid Interpretation Code 42.0 - 52.0 % AO Auto Heme SS Hemoglobin (Bld) [Mass/Vol] 15.1 G/dL Invalid Interpretation Code 14.0 - 18.0 G/dL AO Auto Heme SS Immature reticulocytes/Total reticulocytes (Bld) 0.47 IRF Invalid Interpretation Code 0.20 - 0.46 IRF AO Auto Heme SS Lymphocyte, Absolute 1.50 103/mcL Invalid Interpretation Code 0.77 - 3.85 10^3/mcL AO Auto Heme SS Lymphocytes/100 WBC (Bld) 18.1 % Invalid Interpretation Code 10.0 - 50.0 % AO Auto Heme SS MCH (RBC) [Entitic mass] 31.1 pg Invalid Interpretation Code 27.0 - 31.2 pg AO Auto Heme SS MCHC (RBC) [Mass/Vol] 35.6 G/dL Invalid Interpretation Code 31.8 - 35.4 G/dL AO Auto Heme SS MCV (RBC) [Entitic vol] 87.4 fL Invalid Interpretation Code 80.0 - 94.0 fL AO Auto Heme SS Monocyte, Absolute 0.40 103/mcL Invalid Interpretation Code 0.15 - 1.00 10^3/mcL AO Auto Heme SS Monocytes/100 WBC (Bld) 5.1 % Invalid Interpretation Code 1.7 - 13.0 % AO Auto Heme SS Neutrophil, Absolute 6.10 103/mcL Invalid Interpretation Code 2.85 - 6.16 10^3/mcL AO Auto Heme SS Neutrophils/100 WBC (Bld) 75.6 % Invalid Interpretation Code 37.0 - 80.0 % AO Auto Heme SS Platelet mean volume (Bld) [Entitic vol] 7.6 fL Invalid Interpretation Code 7.4 - 10.4 fL AO Auto Heme SS Platelets (Bld) [#/Vol] 418 103/mcL Invalid Interpretation Code 130 - 400 10^3/mcL AO Auto Heme SS RBC (Bld) [#/Vol] 4.84 106/mcL Invalid Interpretation Code 4.04 - 6.13 10^6/mcL AO Auto Heme SS Reticulocytes/100 RBC (Bld) 1.9 % Invalid Interpretation Code 0.2 - 2.3 % AO Auto Heme SS WBC (Bld) [#/Vol] 8.10 103/mcL Invalid Interpretation Code 4.60 - 10.80 10^3/mcL AO Auto Heme SS LABORATORYOrdered By: [employer] on 10-03-2021 Direct antiglobulin test.complement specific reagent Ql (RBC) Negative (10/03/21 12:16 PM) Invalid Interpretation Code BB Manual SS Direct antiglobulin test.IgG specific reagent (RBC) [Interp] Positive (10/03/21 12:16 PM) Invalid Interpretation Code BB Manual SS Direct antiglobulin test.IgG specific reagent Ql (RBC) POS (10/03/21 12:16 PM) Invalid Interpretation Code BB Auto SS LABORATORYOrdered By: [employer] SYSTEM on 10-03-2021 Ferritin [Mass/Vol] 524.2 ng/mL Invalid Interpretation Code 26.0 - 388.0 ng/mL ADM SS GFR 102 ml/min/1.73sqm Invalid Interpretation Code AO Chemistry S GFR Non- 84 ml/min/1.73sqm Invalid Interpretation Code AO Chemistry S Haptoglobin [Mass/Vol] 205 mg/dL Invalid Interpretation Code 40 - 280 mg/dL ADM SS Vital Signs Date Time Vital Sign Value Performing Clinician Marilyn arthur 08-28-2025 09:24-0400 Body height 187.[address] Ceferino Ramirez MD Work Phone: [facility] 08-28-2025 09:24-0400 Body mass index (BMI) [Ratio] 28.3 kg/m2 Dr. Ceferino Ramirez MD Work Phone: [facility] 08-28-2025 09:24-0400 Body weight 100.[address] Ceferino Ramirez MD Work Phone: [facility] 08-28-2025 09:24-0400 Diastolic blood pressure 80 mm[Hg] Dr. Ceferino Ramirez MD Work Phone: [facility] 08-28-2025 09:24-0400 Heart rate 74 /min Dr. Ceferino Ramirez MD Work Phone: [facility] 08-28-2025 09:24-0400 Respiratory rate 18 /min Dr. Ceferino Ramirez MD Work Phone: [facility] 08-28-2025 09:24-0400 SaO2% (BldA) [Mass fraction] 97 % Dr. Ceferino Ramirez MD Work Phone: [facility] 08-28-2025 09:24-0400 Systolic blood pressure 143 mm[Hg] Dr. Ceferino Ramirez MD Work Phone: [facility] Encounters Encounter Date Encounter Type Care Provider Facility Start: 09-24-2025 End: 09-24-2025 ambulatory Ceferino [place] [place]: 09-04-2025 End: 09-04-2025 ambulatory WOOD MCGREGORKO DO Facility:[facility] Start: 09-04-2025 End: 09-04-2025 Patient encounter procedure WOOD HALKO DO [facility] Start: 09-01-2025 End: 09-05-2025 ambulatory WOOD HALKO DO Facility:[facility] Start: 09-01-2025 End: 09-05-2025 Outreach Lab WOOD HALKO DO [facility] Start: 08-28-2025 End: 08-28-[address] Ceferino Ramirez MD [facility] Work Phone: Start: 08-28-2025 End: 08-28-2025 ambulatory Ceferino Ramirez [facility] Start: 02-27-2025 End: 02-27-2025 ambulatory WOOD HALKO DO Facility:[facility] Start: 10-09-2024 End: 10-09-2024 ambulatory ISAIAH MAHMOOD RN [facility]TH[facility] Facility:[facility] Start: 10-09-2024 End: 10-09-2024 Patient encounter procedure ISAIAH MAHMOOD RN ORTHO-SCAGLIOLA MECHANIC [facility] Start: 10-07-2024 End: 10-11-2024 ambulatory WOOD HALKO DO Facility:[facility] Start: 10-07-2024 End: 10-11-2024 Outreach Lab WOOD BALBIRKO DO [facility] Start: 10-03-2024 End: 10-03-2024 ambulatory ISAIAH MAHMOOD APRN-SCAGLIOLA MECHANIC Facility:[facility] Start: 10-03-2024 End: 10-03-2024 Patient encounter procedure WOOD HALKO DO [facility] Start: 06-17-2024 End: 06-17-2024 ambulatory WOOD MCGREGORKO DO Facility:[facility] Start: 03-07-2024 End: 03-07-2024 ambulatory WOOD BALBIRKO DO Facility:[facility] Start: 03-07-2024 End: 03-07-2024 Patient encounter procedure WOOD HALKO DO [facility] Start: 01-15-2024 End: 01-15-2024 ambulatory EDGAR SAMUEL MD Facility:[facility] Start: 01-15-2024 End: 01-15-2024 Patient encounter procedure EDGAR SAMUEL MD [facility] Start: 01-01-2024 End: 01-01-2024 ambulatory EDGAR SAMUEL MD Facility:[facility] Start: 08-06-2023 End: 08-06-2023 ambulatory WOOD BALBIRKO Facility:[facility] Start: 08-06-2023 End: 08-06-2023 Patient encounter procedure WOOD HALKO DO [facility] Start: 07-16-2023 End: 07-16-2023 ambulatory EDGAR SAMUEL MD Facility:[facility] Start: 07-06-2023 End: 07-06-2023 ambulatory SADE IBRAHIM APRN-SCAGLIOLA MECHANIC Facility:[facility] Start: 07-06-2023 End: 07-06-2023 Patient encounter procedure SADE IBRAHIM APRN-SCAGLIOLA MECHANIC [facility] Start: 03-15-2023 End: 03-15-2023 Patient encounter procedure WOOD BARRON DO [facility] Start: 01-05-2023 End: 01-05-2023 Patient encounter procedure EDGAR SAMUEL MD [facility] Start: 12-08-2022 End: 12-08-2022 Patient encounter procedure WOOD BARRON DO [facility] Start: 08-21-2022 End: 08-21-2022 Patient encounter procedure WOOD BARRON DO [facility] Start: 07-10-2022 End: 07-10-2022 Patient encounter procedure EDGAR SAMUEL MD [facility] Start: 06-12-2022 End: 06-12-2022 Patient encounter procedure WOOD BARRON DO [facility] Start: 03-16-2022 End: 03-16-2022 Patient encounter procedure WOOD BARRON DO [facility] Start: 01-10-2022 End: 01-10-2022 Patient encounter procedure EDGAR SAMUEL MD [facility] Start: 11-04-2021 End: 11-04-2021 Patient encounter procedure WOOD BARRON DO [facility] Start: 10-07-2021 End: 10-07-2021 Patient encounter procedure EDGAR SAMUEL MD [facility] Start: 10-03-2021 End: 10-03-2021 Patient encounter procedure EDGAR SAMUEL MD [facility] Procedures Date Procedure Procedure Detail Performing Clinician Cath plmt r hrt & ar ts w/njx & angio img s&i WOOD BARRON DO Hernia repair WOOD BARRON DO Kyphoplasty of fract ure of spine using fluoroscopic guidance EDGAR SAMUEL MD Plan of Treatment Date Care Activity Detail Author Start: 10-07-2025 ambulatory Ambulatory Facility:[facility] Immunizations Immunization Date Immunization Notes Care Provider Fa cility 03-03-2025 Pneumococcal conjuga te PCV20, polysaccharide [id number] conjugate, adjuvant, PF; Translations: [Prevnar 20] WOOD BARRON DO [facility] 10-21-2024 influenza, high dose seasonal, preservative-free; Translations: [Fluad PF Prefilled Syringe ] WOOD BARRON DO [facility] 09-19-2021 influenza virus vaccine, unspecified formulation WOOD BARRON DO [facility] Comment on above: Result Comment: Rout e: Unknown 09-19-2021 influenza, injectabl e, quadrivalent, contains preservative; Translations: [Fluarix PF Quadrivalent ] EDGAR SAMUEL MD [facility] 02-21-2021 COVID-19, mRNA, LNP- S, PF, 100 mcg/ 0.5 mL dose; Translations: [Moderna COVID-19 Vaccine] EDGAR SAMUEL MD [facility] 01-19-2021 COVID-19, mRNA, LNP- S, PF, 100 mcg/ 0.5 mL dose; Translations: [Moderna COVID-19 Vaccine] EDGAR SAMUEL MD [facility] 11-19-2019 diphtheria and tetan us toxoids, adsorbed for pediatric use WOOD BARRON DO [facility] Comment on above: Result Comment: [facility] 12-29-2016 influenza virus vaccine, unspecified formulation EDGAR SAMUEL MD [facility] 10-01-2015 influenza virus vaccine, unspecified formulation EDGAR SAMUEL MD [facility] 07-15-2010 diphtheria and tetan us toxoids, adsorbed for pediatric use WOOD BARRON DO [facility] Payers Date Payer Category Payer Medicare [id number] 2025 Self-pay [id number] 2023 Medicare [id number] 2023 Private Health Insurance [id number] 2023 Unknown [id number] 2022 Medicare [id number] 1955 Unknown [id number] 2.16.8 [id number] 1957 Unknown [id number] 2.16.8 [id number] 1957 Unknown [id number] 2.16.8 [id number] 1957 Unknown [id number] 2.16.8 [id number] 1957 Unknown [id number] 2.16.8 40.1.803330.3.579.2.7 1957 Unknown [id number] 2.16.8 40.1.261783.3.579.2.627 1957 Unknown [id number] 2.16.8 40.1.542417.3.579.2. 1957 Unknown [id number] 2.16.8 40.1.414435.3.579.2.627 1957 Unknown [id number] 2.16. 840.1.789361.3.579.2.7 1957 Unknown [id number] 2.16. 840.1.105867.3.579.2.627 1957 Unknown [id number] 2.16.8 40.1.045117.3.579.2.7 1957 Unknown [id number] 2.16.8 40.1.240434.3.579.2.627 1957 Unknown [id number] 2.16.8 40.1.767405.3.579.2.627 1957 Unknown [id number] 2.16.8 40.1.310670.3.579.2.627 Unknown [id number] 2.16.8 40.1.688242.3.579.2.462 Unknown [id number] 2.16.8 40.1.531816.3.579.2.462 Unknown [id number] 2.16.8 [id number] Social History Date Type Detail Facility Start: 05-13-2020 End: 08-28-2025 Ex-smoker (finding) [facility] Start: 1955 Sex Assigned At Male [facility] Start: 02-14-2023 Tobacco smoking status Light tobacco smoker (finding) [facility] Start: 05-13-2020 Sexual Orientation Heterosexual (finding) [facility] Gender identity No Gender Identi ty Entered [facility] Start: 05-14-2019 Sex Male (finding) [facility] Sex Male [facility] Clinical Notes 08-21-2022 to 09-04-2025 Note Date & Type Note Facility 09-04-2025 Note Exam Date Time Procedure Performing Provider Status 09/04/25 7:48 AM US Aorta BRENDAN OBRIEN MD; Auth ( Verified) [id number] ORIGINAL EXAMINATION: SCREENING ULTRASOUND OF THE AORTA09/04/2025 7:49 am Ultrasound of the abdominal aorta COMPARISON: CT chest 06/17/2024, 06/11/2023 and 06/12/2022 and ultrasound 08/21/2022 TECHNIQUE: This report is based on interpretation of permanently recorded ultrasound images. HISTORY: ORDERING SYSTEM PROVIDED HISTORY: Reason for Exam: follow up AAA, FINDINGS: AP and Transverse diameter of the proximal segment: 2.8 x 3.3 cm AP and Transverse diameter of the mid segment: 2.1 x 2.4 cm AP and Transverse diameter of the distal segment: 2.1 x 2.7 cm The aortic bifurcation and proximal common iliac arteries arenonaneurysmal also. IMPRESSION: There is stable dilatation of the proximal aorta compared to the previous ultrasound. This is over estimation and artifactually increased since chest CTs before and after the comparison ultrasound include the proximal aorta and show no aneurysmal dilatation. There is no abdominal aortic aneurysm in my opinion. Interpreted by: Brendan Obrien MD Preliminary Report By: Brendan Obrien MD Electronically signed By Brendan Obrien MD Dictated Date: 09/04/2025 9:46:19 AM Prelim Date: 09/04/2025 9:53:55 AM Sign Date: 09/04/2025 9:53:55 AM Ordering Provider: WOOD BARRON RP [facility]10-10-2025 [facility] [address], [address] [place], [place] [address] OFFICE VISIT Date of Service: 08/28/25 MR#: [id number] Acct: [id number] Name: WOOD FLANNERY Rep #: [id number] : 1955 Provider: Dr. Yoseph Ramirez MD Age/Sex: 70/M Location: [facility] Status: Signed with Addenda ADDENDUM by Dr. Ceferino Ramirez MD on 08/28/25 at 1457 Assessment and Plan (No Qualifiers) Assessment and Plan (1) Brow ptosis, bilateral: Status: Acute (2) Dermatochalasis of both upper eyelids: Status: Acute Plan CPT codes for insurance prior authorization are as follows: Blepharoplasty 90494(50 modifier), BrowLift 98445 (50 modifier) 08/28/25 1457 MD> Date _ Ceferino Ramirez MD cc: ~* Signed Intake Vital Signs 08/28/25 09:24 Height 6 ft 2 in Weight: 221 lb BMI 28.3 BP 143/80 H Blood Pressure Location Rt brachial Position Sitting Respiration 18 Pulse 74 Pulse Source Monitor Pulse Oximetry (%) 97 Oxygen Delivery Method room air Intake Visit Reasons: UPPER BLEPH Is patient in pain?: No Allergies No Known Allergies Allergy (Unverified 08/28/25 09:14) Medications ?Medication ?Instructions ?Recorded ?Confirmed ?Type ascorbate calcium (vitamin C) 500 500 mg PO QDAY 08/2808/28/25 History mg tablet atorvastatin 20 mg tablet 20 mg PO QDAY 08/28/2508/28 History bupropion HCl 150 mg 24 hr tablet, 150 mg PO QDAY 08/1908/28/25 History extended release folic acid 1 mg tablet 1 mg PO QDAY 08/28/25 History multivitamin 1 tab PO QDAY 08/28/2508/28 History valsartan 80 mg tablet 80 mg PO QDAY 08/28/2508/28 History Have you fallen in the past year?: No [facility] Medical History (Updated 08/28/25 @ 14:[address] Ceferino Ramirez MD) Anemia Social History Smoking Status: Former smoker HPI UPPER BLEPH Details: The patient is a 70-year-old male presenting for evaluation of excess eyelid skin and potential surgical intervention. The patient has a history of hemolytic anemia, which is currently well- controlled with iron and folic acid supplementation. He reports no significant bleeding issues and does not require frequent monitoring for this condition. The patient has been advised by his cook house supervisor regarding excess eyelid skin, which was initiallydismissed but later reconsidered after comments from peers. He has been under regular dermatological surveillance due to a family history ofmelanoma, with his father having succumbed to metastatic melanoma. The patient reports normal blood pressure readings, with a recent measurement of140/80 mmHg. He hasnot experienced any significant visual disturbances but acknowledges potential issues with peripheral vision, especially while driving. ROS: - Hematologic: Denies bleeding issues - Ophthalmic: Reports potential peripheral vision issues while driving Attestation: Documentation on this patient encounter was supported using ambient scribe technology/ voice AI technology. The patient consented to recording for the purpose of documenting the encounter. Provider reviewed content of the generatednote prior to signature. ROS General General: Yes good health; No fever(s) or weight loss HENMT HENMT: No rhinitis, sore throat/mouth sore, nasal congestion, contacts or glaucoma Endo Endocrine: No thyroid disease, polydipsia, heat intolerance, cold intolerance, hepatitis or excessive urine Skin Skin: No Bleeding, bruising, changing moles or suspicious lesion Musc Musculoskeletal: No joint pain, joint stiffness, muscle weakness, back pain, osteoarthritis or Muscle aches/ myalgia Neuro Neurological: No headache(s), No lightheadedness and No numbness Psych Psychiatric: No depression, claustrophobia or anxiety Resp Respiratory: No spitting up, shortness of breath, sleep apnea, asthma, emphysema, TB, Cough or Smoker Gastro Gastrointestinal: No diarrhea, constipation, blood in stool, nausea, vomiting orabdominal bloating Shaan Hematologic: Yes anemia, No bleeding and No abnormal bleeding Genitourinary: No urinary frequency, blood in urine or incontinence Exam Details Pupils: PERRL EOM: EOM intact bilaterally Forehead: Chronic frontalis use to overcome dermatochalasis/brow ptosis. I had him close his eyes, relax his forehead, and then open his eyes again and there was significant visual field obstruction.Static forehead rhytids (deep) Eyebrows: Ptotic and below orbital rim bilaterally Eyelids: * MRD 1 was 4 mm, MRD 2 was 5 mm * Good levator function (approximately 12 mm) * No lagophthalmos * Snap back test: not done * Upper lid dermatochalasis bilaterally, obstructing vertical gaze bilaterally secondary to the skin. The skin is hanging over his eyelashes and the lateral portions of his lid margin. Coding Level of Care Code Off vis,new,level 3 Diagnoses Brow ptosis, bilateral H57.813 Dermatochalasis of both upper eyelids H02.831; H02.834 Assessment and Plan (No Qualifiers) Assessment and Plan (1) Brow ptosis, bilateral: Status: Acute (2) Dermatochalasis of both upper eyelids: Status: Acute Plan Assessment and Plan 70-year-old male with a history of hemolytic anemia presenting with excess eyelid skin for potential surgical intervention. The hemolytic anemia is well-managed with iron and folic acid supplementation, and the patient reports no bleeding complications. The primary concern is the excess eyelid skin, which has been noted by the cook house supervisor and peers, prompting consideration for blepharoplasty. The patient is under regular dermatological surveillance due to a family historyof melanoma, with no current signs of malignancy reported. 1. Hemolytic Anemia The patient's hemolytic anemia is currently well-controlled with iron and folic acid supplementation. No additional interventions are required at this time, butregular monitoring by the primary care physician is advised. 2. Dermatochalasis The patient is considering blepharoplasty to address excess eyelid skin, which has been noted by both the cook house supervisor and peers. A visual field test is recommended to assess the impact on vision, and surgical clearance from the primary care physician is advised. 3. Preventative Care: Monitoring For Melanoma Due To Family History The patient is under regular dermatological surveillance due to a family historyof melanoma, with no current signs of malignancy reported. Continued monitoring is recommended to ensure early detection of any potential issues. - Continue taking iron and folic acid as prescribed for hemolytic anemia. - Schedule a visual field test to assess the impact of eyelid skin on vision. - Obtain surgical clearance from your primary care physician before proceeding with blepharoplasty. - Maintain regular dermatological check-ups due to family history of melanoma. Discussed with the patient options for his brows. We discussed transverse incision on the forehead with full mid forehead lift (most powerful unpredictable) . We also discussed browpexy (direct brow lift). We also discussed just doing an upper eyelid blepharoplasty. After discussing the risks, ,benefits, and alternatives, he would like to do a brow pexy procedure (direct brow lift with internal suspension) to address the brow ptosis and an upper eyelid blepharoplasty to address the dermatochalasis. This would be a noncosmetic procedure as both of these issues (brow ptosis and the excess eyelid skin) are causing his significant visual field obstruction. We will plan to take photos today and submit for insurance. He is going to go to the shipping and receiving coordinator for visual field testing. Follow-up with me for preop visit Clinical Quality Measures Falls Risk Screening/Assistive Devices Have you fallen in the past year?: No 08/28/25 1456 MD> Date _ Ceferino Ramirez MD Cosigner Signature: Date (if applicable) CC: ~ [facility]10-03-2022 Note ORIGINAL HISTORY: Aneurysm screening COMPARISON: No FINDINGS: Proximal aorta: 2.8 x 3.4 cm. Mid aorta: 2.3 x 2.0 cm. Distal aorta: 1.9 x 2.2 cm. The inferior vena cava is unremarkable. The iliac arteries are unremarkable. IMPRESSION: 3.4 cm abdominal aortic aneurysm. 3 year follow-up is recommended to assess interval change. Interpreted by: Tico Christian MD Preliminary Report By: Tico Christian MD Electronically signed By Tico Christian MD Dictated Date: 08/21/2022 9:26:15 AM Prelim Date: 08/21/2022 9:27:32 AM Sign Date: 08/21/2022 9:27:32 AM Ordering Provider: WOOD [facility]10-03-2022 Note ORIGINAL HISTORY: Aneurysm screening COMPARISON: No FINDINGS: Proximal aorta: 2.8 x 3.4 cm. Mid aorta: 2.3 x 2.0 cm. Distal aorta: 1.9 x 2.2 cm. The inferior vena cava is unremarkable. The iliac arteries are unremarkable. IMPRESSION: 3.4 cm abdominal aortic aneurysm. 3 year follow-up is recommended to assess interval change. Interpreted by: Tico Christian MD Preliminary Report By: Tico Christian MD Electronically signed By Tico Christian MD Dictated Date: 08/21/2022 9:26:15 AM Prelim Date: 08/21/2022 9:27:32 AM Sign Date: 08/21/2022 9:27:32 AM [facility] Appointment Date:10/07/2021 02:15:00 PM Scheduled Provider:EDGAR SAMUEL MD Location:[facility]M ONC Appointment Type:HEM ONC OV Follow Up Appointment Date:11/04/2021 05:30:00 PM Scheduled Provider: Location:XRAY Appointment Type:CT Thorax Screening w/o Contrast Appointment Date:03/20/2022 08:00:00 AM Scheduled Provider:WOOD BARRON DO Location:[facility] Appointment Type:PC OV Future Scheduled Tests Radiology* CT Low Dose Lung Cancer Screening (LDCT) 11/04/21 [facility] Evaluation + Plan note Future Appointments Appointment Date:11/04/2021 05:30:00 PM Scheduled Provider: Location:XRAY Appointment Type:CT Thorax Screening w/o Contrast Appointment Date:01/06/2022 03:00:00 PM Scheduled Provider:EDGAR SAMUEL MD Location:[facility]C Appointment Type:HEM ONC OV Follow Up Appointment Date:03/20/2022 08:00:00 AM Scheduled Provider:WOOD BARRON DO Location:[facility] Appointment Type:PC OV Future Scheduled Tests Laboratory* Direct Antiglobulin Test 01/07/22 * Haptoglobin 01/07/22 * Lactate Dehydrogenase 01/07/22 * Complete Blood Count 01/07/22 * Complete Blood Count 11/18/21 * Reticulocytes - Panel 01/07/22 * Complete Metabolic Panel 01/07/22 Radiology* CT Low Dose Lung Cancer Screening (LDCT) 11/04/21 [facility] Evaluation + Plan note Future Appointments Appointment Date:01/06/2022 03:00:00 PM Scheduled Provider:EDGAR SAMUEL MD Location:[facility]M ONC Appointment Type:HEM ONC OV Follow Up Appointment Date:03/20/2022 08:00:00 AM Scheduled Provider:WOOD BARRON DO Location:[facility] Appointment Type:PC OV Future Scheduled Tests Laboratory* Direct Antiglobulin Test 01/07/22 * Haptoglobin 01/07/22 * Lactate Dehydrogenase 01/07/22 * Complete Blood Count 01/07/22 * Complete Blood Count 11/18/21 * Reticulocytes - Panel 01/07/22 * Complete Metabolic Panel 01/07/22 [facility] Evaluation + Plan note Future Appointments Appointment Date:01/16/2022 03:00:00 PM Scheduled Provider:EDGAR SAMUEL MD Location:[facility]M ONC Appointment Type:HEM ONC OV Follow Up Appointment Date:03/20/2022 08:00:00 AM Scheduled Provider:WOOD BARRON DO Location:[facility] Appointment Type:PC OV Future Scheduled Tests Laboratory* Direct Antiglobulin Test 01/07/22 * Complete Blood Count 11/18/21 Radiology* CT Thorax w/ Contrast 05/08/22 [facility] Evaluation + Plan note Future Appointments Appointment Date:03/20/2022 08:00:00 AM Scheduled Provider:WOOD BARRON DO Location:[facility] Appointment Type:PC OV Appointment Date:07/17/2022 03:00:00 PM Scheduled Provider:EDGAR SAMUEL MD Location:[facility]C Appointment Type:HEM ONC OV Follow Up Future Scheduled Tests Laboratory* Direct Antiglobulin Test 01/07/22 * Direct Antiglobulin Test 07/16/22 * Haptoglobin 07/16/22 * Lactate Dehydrogenase 07/16/22 * Complete Blood Count 11/18/21 * Complete Blood Count 07/16/22 * Reticulocytes - Panel 07/16/22 * Complete Metabolic Panel 07/16/22 Radiology* CT Thorax w/ Contrast 05/08/22 [facility] Evaluation + Plan note Future Appointments Appointment Date:07/17/2022 03:00:00 PM Scheduled Provider:EDGAR SAMUEL MD Location:[facility] Appointment Type:HEM ONC OV Follow Up Appointment Date:12/12/2022 08:00:00 AM Scheduled Provider:WOOD BARRON DO Location:[facility] Appointment Type:PC OV Future Scheduled Tests Laboratory* Direct Antiglobulin Test 01/07/22 * Direct Antiglobulin Test 07/16/22 * Basic Metabolic Panel 06/20/22 * Basic Metabolic Panel 12/13/22 * Haptoglobin 07/16/22 * Lactate Dehydrogenase 07/16/22 * Rubella Antibody 06/12/22 * A1C Hemoglobin 06/20/22 * A1C Hemoglobin 12/13/22 * Complete Blood Count 11/18/21 * Complete Blood Count 12/13/22 * Complete Blood Count 07/16/22 * Mumps Antibody 06/12/22 * Reticulocytes - Panel 07/16/22 * Rubeola IgG Antibody 06/12/22 * Complete Metabolic Panel 07/16/22 Radiology* US Abdomen and Aorta 06/12/22 [facility] Evaluation + Plan note Future Appointments Appointment Date:07/17/2022 03:00:00 PM Scheduled Provider:EDGAR SAMUEL MD Location:[facility]C Appointment Type:HEM ONC OV Follow Up Appointment Date:08/21/2022 08:30:00 AM Scheduled Provider: Location:RAD Appointment Type:US Abdomen/Aorta Appointment Date:12/12/2022 08:00:00 AM Scheduled Provider:WOOD BARRON DO Location:[facility] Appointment Type:PC OV Future Scheduled Tests Laboratory* Direct Antiglobulin Test 01/07/22 * Direct Antiglobulin Test 07/16/22 * Basic Metabolic Panel 06/20/22 * Basic Metabolic Panel 12/13/22 * Rubella Antibody 06/12/22 * A1C Hemoglobin 06/20/22 * A1C Hemoglobin 12/13/22 * Complete Blood Count 11/18/21 * Complete Blood Count 12/13/22 * Mumps Antibody 06/12/22 * Rubeola IgG Antibody 06/12/22 Radiology* US Abdomen and Aorta 08/21/22 [facility] Evaluation + Plan note Future Appointments Appointment Date:12/12/2022 08:00:00 AM Scheduled Provider:WOOD BARRON DO Location:[facility] Appointment Type:PC OV Appointment Date:01/16/2023 11:00:00 AM Scheduled Provider:EDGAR SAMUEL MD Location:[facility]C Appointment Type:HEM ONC OV Follow Up Future Scheduled Tests Laboratory* Direct Antiglobulin Test 01/07/22 * Direct Antiglobulin Test 01/16/23 * Direct Antiglobulin Test 07/16/22 * Basic Metabolic Panel 06/20/22 * Basic Metabolic Panel 12/13/22 * Basic Metabolic Panel 01/16/23 * Ferritin 01/16/23 * Haptoglobin 01/16/23 * Hepatic Function Panel 01/16/23 * Lactate Dehydrogenase 01/16/23 * Rubella Antibody 06/12/22 * A1C Hemoglobin 06/20/22 * A1C Hemoglobin 12/13/22 * Complete Blood Count 11/18/21 * Complete Blood Count 12/13/22 * Complete Blood Count 01/16/23 * Iron Studies 01/16/23 * Mumps Antibody 06/12/22 * Reticulocytes - Panel 01/16/23 * Rubeola IgG Antibody 06/12/22 [facility] Evaluation + Plan note Future Appointments Appointment Date:12/12/2022 08:00:00 AM Scheduled Provider:WOOD BARRON DO Location:[facility] Appointment Type:PC OV Appointment Date:01/16/2023 11:00:00 AM Scheduled Provider:EDGAR SAMUEL MD Location:[facility] Appointment Type:HEM ONC OV Follow Up Future Scheduled Tests Laboratory* Direct Antiglobulin Test 01/07/22 * Direct Antiglobulin Test 01/16/23 * Direct Antiglobulin Test 07/16/22 * Basic Metabolic Panel 06/20/22 * Basic Metabolic Panel 12/13/22 * Basic Metabolic Panel 01/16/23 * Ferritin 01/16/23 * Haptoglobin 01/16/23 * Hepatic Function Panel 01/16/23 * Lactate Dehydrogenase 01/16/23 * Rubella Antibody 06/12/22 * A1C Hemoglobin 06/20/22 * A1C Hemoglobin 12/13/22 * Complete Blood Count 12/13/22 * Complete Blood Count 01/16/23 * Iron Studies 01/16/23 * Mumps Antibody 06/12/22 * Reticulocytes - Panel 01/16/23 * Rubeola IgG Antibody 06/12/22 [facility] Evaluation + Plan note Future Appointments Appointment Date:01/16/2023 11:00:00 AM Scheduled Provider:EDGAR SAMUEL MD Location:[facility] Appointment Type:HEM ONC OV Follow Up Appointment Date:07/10/2023 08:00:00 AM Scheduled Provider:WOOD BARRON DO Location:[facility] Appointment Type:PC OV Future Scheduled Tests Laboratory* Direct Antiglobulin Test 01/07/22 * Direct Antiglobulin Test 01/16/23 * Direct Antiglobulin Test 07/16/22 * Basic Metabolic Panel 06/20/22 * Basic Metabolic Panel 12/13/22 * Rubella Antibody 06/12/22 * A1C Hemoglobin 06/20/22 * A1C Hemoglobin 12/13/22 * A1C Hemoglobin 06/11/23 * Complete Blood Count 12/13/22 * Complete Blood Count 06/11/23 * Mumps Antibody 06/12/22 * Rubeola IgG Antibody 06/12/22 Radiology* CT Low Dose Lung Cancer Screening (LDCT) 05/30/23 * US Aorta 08/19/25 [facility] Evaluation + Plan note Future Appointments Appointment Date:03/21/2023 10:30:00 AM Scheduled Provider:WOOD BARRON DO Location:[facility] Appointment Type:PC OV Appointment Date:07/10/2023 08:00:00 AM Scheduled Provider:WOOD BARRON DO Location:[facility] Appointment Type:PC OV Appointment Date:07/16/2023 01:00:00 PM Scheduled Provider:EDGAR SAMUEL MD Location:[facility]C Appointment Type:HEM ONC OV Follow Up Future Scheduled Tests Laboratory* Basic Metabolic Panel w/ Ionized Calcium (CC) 07/16/23 * Direct Antiglobulin Test Complement 07/16/23 * Direct Antiglobulin Test 01/16/23 * Direct Antiglobulin Test 07/16/22 * Basic Metabolic Panel 06/20/22 * Basic Metabolic Panel 12/13/22 * Haptoglobin 07/16/23 * Lactate Dehydrogenase 07/16/23 * Rubella Antibody 06/12/22 * Direct Antiglobulin Test IgG (Gel) 07/16/23 * Hepatic Function Panel ([facility]) 07/16/23 * A1C Hemoglobin 06/20/22 * A1C Hemoglobin 12/13/22 * A1C Hemoglobin 06/11/23 * Complete Blood Count 07/16/23 * Complete Blood Count 12/13/22 * Complete Blood Count 06/11/23 * Mumps Antibody 06/12/22 * Reticulocytes - Panel 07/16/23 * Rubeola IgG Antibody 06/12/22 Radiology* CT Low Dose Lung Cancer Screening (LDCT) 05/30/23 * US Aorta 08/19/25 [facility] Evaluation + Plan note Future Appointments Appointment Date:07/16/2023 01:00:00 PM Scheduled Provider:EDGAR SAMUEL MD Location:[facility]C Appointment Type:HEM ONC OV Follow Up Appointment Date:08/08/2023 02:30:00 PM Scheduled Provider:WOOD BARRON DO Location:[facility] Appointment Type:PC OV Future Scheduled Tests Laboratory* Basic Metabolic Panel w/ Ionized Calcium (CC) 07/16/23 * Direct Antiglobulin Test 01/16/23 * Direct Antiglobulin Test 07/16/22 * Basic Metabolic Panel 06/20/22 * Basic Metabolic Panel 12/13/22 * Hepatic Function Panel ([facility]) 07/16/23 * A1C Hemoglobin 06/20/22 * A1C Hemoglobin 03/21/23 * A1C Hemoglobin 12/13/22 * A1C Hemoglobin 06/11/23 * Complete Blood Count 03/21/23 * Complete Blood Count 12/13/22 * Complete Blood Count 06/11/23 * Lipid Profile 03/21/23 * Albumin/Creatinine Ratio, Random Urine 03/21/23 * Complete Metabolic Panel 03/21/23 Radiology* CT Low Dose Lung Cancer Screening (LDCT) 06/11/24 * US Aorta 08/19/25 [facility] Evaluation + Plan note Future Appointments Appointment Date:08/08/2023 02:30:00 PM Scheduled Provider:WOOD BARRON DO Location:[facility] Appointment Type:PC OV Appointment Date:01/15/2024 02:00:00 PM Scheduled Provider:EDGAR SAMUEL MD Location:[facility] Appointment Type:HEM ONC OV Follow Up Future Scheduled Tests Laboratory* Basic Metabolic Panel w/ Ionized Calcium (CC) 07/16/23 * Direct Antiglobulin Test 01/16/23 * Direct Antiglobulin Test 07/16/22 * Basic Metabolic Panel 12/13/22 * Haptoglobin 01/16/24 * Lactate Dehydrogenase 01/16/24 * Hepatic Function Panel ([facility]) 07/16/23 * A1C Hemoglobin 03/21/23 * A1C Hemoglobin 12/13/22 * Complete Blood Count 01/16/24 * Complete Blood Count 03/21/23 * Complete Blood Count 12/13/22 * Albumin/Creatinine Ratio, Random Urine 03/21/23 * Reticulocytes - Panel 01/16/24 * Complete Metabolic Panel 01/16/24 * Complete Metabolic Panel 03/21/23 Radiology* CT Low Dose Lung Cancer Screening (LDCT) 06/11/24 * US Aorta 08/19/25 [facility] Evaluation + Plan note Future Appointments Appointment Date:02/06/2024 10:00:00 AM Scheduled Provider:WOOD BARRON DO Location:[facility] Appointment Type:PC Wellness Medicare Appointment Date:10/09/2024 02:30:00 PM Scheduled Provider:EDGAR SAMUEL MD Location:[facility] Appointment Type:HEM ONC OV Follow Up Future Scheduled Tests Laboratory* Basic Metabolic Panel w/ Ionized Calcium (CC) 07/16/23 * Direct Antiglobulin Test 01/16/23 * Haptoglobin 10/15/24 * Lactate Dehydrogenase 10/15/24 * Prostate Specific Antigen 02/06/24 * Hepatic Function Panel ([facility]) 07/16/23 * A1C Hemoglobin 03/21/23 * A1C Hemoglobin 02/06/24 * Complete Blood Count 10/15/24 * Complete Blood Count 03/21/23 * Complete Blood Count 02/06/24 * Lipid Profile 02/06/24 * Albumin/Creatinine Ratio, Random Urine 03/21/23 * Albumin/Creatinine Ratio, Random Urine 02/06/24 * Reticulocytes - Panel 10/15/24 * Reticulocytes - Panel 01/16/24 * Complete Metabolic Panel 10/15/24 * Complete Metabolic Panel 03/21/23 * Complete Metabolic Panel 02/06/24 Radiology* CT Low Dose Lung Cancer Screening (LDCT) 06/11/24 * US Aorta 08/19/25 [facility] Evaluation + Plan note Future Appointments Appointment Date:03/12/2024 03:30:00 PM Scheduled Provider:WOOD BARRON DO Location:[facility] Appointment Type:PC Wellness Medicare Appointment Date:10/09/2024 02:30:00 PM Scheduled Provider:EDGAR SAMUEL MD Location:[facility]C Appointment Type:HEM ONC OV Follow Up Future Scheduled Tests Laboratory* Basic Metabolic Panel w/ Ionized Calcium (CC) 07/16/23 * Haptoglobin 10/15/24 * Lactate Dehydrogenase 10/15/24 * Hepatic Function Panel ([facility]) 07/16/23 * A1C Hemoglobin 03/21/23 * Complete Blood Count 10/15/24 * Complete Blood Count 03/21/23 * Albumin/Creatinine Ratio, Random Urine 03/21/23 * Albumin/Creatinine Ratio, Random Urine 02/06/24 * Reticulocytes - Panel 10/15/24 * Reticulocytes - Panel 01/16/24 * Complete Metabolic Panel 10/15/24 * Complete Metabolic Panel 03/21/23 Radiology* CT Low Dose Lung Cancer Screening (LDCT) 06/11/24 * US Aorta 08/19/25 [facility] Evaluation + Plan note Future Appointments Appointment Date:10/09/2024 02:00:00 PM Scheduled Provider:WOOD BARRON DO Location:[facility] Appointment Type:PC OV Appointment Date:10/09/2024 02:30:00 PM Scheduled Provider:ISAIAH MAHMOOD Location:[facility] ONC Appointment Type:HEM ONC OV Follow Up Future Scheduled Tests Laboratory* Haptoglobin 10/15/24 * Lactate Dehydrogenase 10/15/24 * Complete Blood Count 10/15/24 * Albumin/Creatinine Ratio, Random Urine 10/12/24 * Albumin/Creatinine Ratio, Random Urine 02/06/24 * Reticulocytes - Panel 10/15/24 * Reticulocytes - Panel 01/16/24 * Complete Metabolic Panel 10/15/24 Radiology* CT Low Dose Lung Cancer Screening (LDCT) 06/03/24 * US Aorta 08/19/25 [facility] Evaluation + Plan note Future Appointments Appointment Date:10/21/2024 09:00:00 AM Scheduled Provider:WOOD BARRON DO Location:[facility] Appointment Type:PC OV Appointment Date:10/09/2025 03:00:00 PM Scheduled Provider: Location:HEM ONC Appointment Type:HEM ONC OV Follow Up Future Scheduled Tests Laboratory* Haptoglobin 10/15/24 * Lactate Dehydrogenase 10/15/24 * Complete Blood Count 10/15/24 * Complete Blood Count 10/09/25 * Albumin/Creatinine Ratio, Random Urine 02/06/24 * Reticulocytes - Panel 10/15/24 * Reticulocytes - Panel 01/16/24 * Complete Metabolic Panel 10/15/24 * Complete Metabolic Panel 10/09/25 Radiology* CT Low Dose Lung Cancer Screening (LDCT) 06/03/24 * US Aorta 08/19/25 [facility] Evaluation + Plan note Future Appointments Appointment Date:10/08/2025 03:00:00 PM Scheduled Provider:CHERELLE GEIGER MD Location:[facility]C Appointment Type:HEM ONC OV Follow Up Appointment Date:03/09/2026 09:00:00 AM Scheduled Provider:WOOD BARRON DO Location:[facility] Appointment Type:PC Wellness Annual Future Scheduled Tests Laboratory* Ferritin 07/14/25 * Haptoglobin 10/15/24 * Lactate Dehydrogenase 10/15/24 * A1C Hemoglobin 03/02/26 * A1C Hemoglobin 09/02/25 * Complete Blood Count 03/02/26 * Complete Blood Count 09/02/25 * Complete Blood Count 10/15/24 * Complete Blood Count 07/14/25 * Complete Blood Count 10/09/25 * Lipid Profile 03/02/26 * Lipid Profile 09/02/25 * Iron Studies 07/14/25 * Albumin/Creatinine Ratio, Random Urine 03/02/26 * Albumin/Creatinine Ratio, Random Urine 03/21/25 * Reticulocytes - Panel 10/15/24 * Complete Metabolic Panel 03/02/26 * Complete Metabolic Panel 09/02/25 * Complete Metabolic Panel 10/15/24 * Complete Metabolic Panel 10/09/25 Radiology* CT Low Dose Lung Cancer Screening (LDCT) 04/19/26 [facility] Evaluation note* Diagnosis Onset Date Resolution Status Admit Date Brow ptosis, bilateral acute Oc tob2024 8:58am Dermatochalasis of both uppe r eyelids acute August 28 8:58am [facility] Work Phone: Hospital course Narrative No data available for this section [facility] Hospital Discharge instructions No data available for this section [facility] Progress note No data available for this section [facility] Progress note Author Ceferino Ramirez [facility] Note Date/Time August 28, 2025 9 :39am [facility] [address], [address] [place], [place] [address] OFFICE VISIT Date of Service: 08/28/25 MR#: [id number] Acct: [id number] Name: WOOD FLANNERY Rep #: [id number] : 1955 Provider: Dr. Yoseph Ramirez MD Age/Sex: 70/M [place] [facility] Status: Signed with Addenda ADDENDUM by Dr. Ceferino Ramirez MD on 08/28/25 at 1457 Assessment and Plan (No Qualifiers) Assessment and Plan (1) Brow ptosis, bilateral: Status: Acute (2) Dermatochalasis of both upper eyelids: Status: Acute Plan CPT codes for insurance prior authorization are as follows: Blepharoplasty 15469(50 modifier), Brow Lift 00983 (50 modifier) 08/28/25 1457 <Electronically signed by Ceferino Ramirez MD> Date _ Ceferino Ramirez MD cc: ~* Signed Intake Vital Signs 08/28/25 09:24 Height 6 ft 2 in Weight: 221 lb BMI 28.3 BP 143/80 H Blood Pressure Location Rt brachial Position Sitting Respiration 18 Pulse 74 Pulse Source Monitor Pulse Oximetry (%) 97 Oxygen Delivery Method room air Intake Visit Reasons: UPPER BLEPH Is patient in pain?: No Allergies No Known Allergies Allergy (Unverified 08/28/25 09:14) Medications ?Medication ?Instructions ?Recorded ?Confirmed ?Type ascorbate calcium (vitamin C) 500 500 mg PO QDAY 08/2808/28/25 History mg tablet atorvastatin 20 mg tablet 20 mg PO QDAY 08/28/2508/28 History bupropion HCl 150 mg 24 hr tablet, 150 mg PO QDAY 08/1908/28/25 History extended release folic acid 1 mg tablet 1 mg PO QDAY 08/28/25 History multivitamin 1 tab PO QDAY 08/28/2508/28 History valsartan 80 mg tablet 80 mg PO QDAY 08/28/2508/28 History Have you fallen in the past year?: No [facility] [facility] (Updated 08/28/25 @ 14:[address] Ceferino Ramirez MD) Anemia Social History Smoking Status: Former smoker HPI UPPER BLEPH Details: The patient is a 70-year-old male presenting for evaluation of excess eyelid skin and potential surgical intervention. The patient has a history of hemolytic anemia, which is currently well- controlled with iron and folic acid supplementation. He reports no significant bleeding issues and does not require frequent monitoring for this condition. 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 He has been under regular dermatological surveillance due to a family history ofmelanoma, with his father having succumbed to metastatic melanoma. The patient reports normal blood pressure readings, with a recent measurement of140/80 mmHg. He has not experienced any significant visual disturbances but acknowledges potential issues with peripheral vision, especially while driving. ROS: - Hematologic: Denies bleeding issues - Ophthalmic: Reports potential peripheral vision issues while driving Attestation: Documentation on this patient encounter was supported using ambient scribe technology/ voice AI technology. The patient consented to recording for the purpose of documenting the encounter. Provider reviewed content of the generatednote prior to signature. ROS General General: Yes good health; No fever(s) or weight loss HENMT HENMT: No rhinitis, sore throat/mouth sore, nasal congestion, contacts or glaucoma Endo Endocrine: No thyroid disease, polydipsia, heat intolerance, cold intolerance, hepatitis or excessive urine Skin Skin: No Bleeding, bruising, changing moles or suspicious lesion Musc Musculoskeletal: No joint pain, joint stiffness, muscle weakness, back pain, osteoarthritis or Muscle aches/ myalgia Neuro Neurological: No headache(s), No lightheadedness and No numbness Psych Psychiatric: No depression, claustrophobia or anxiety Resp Respiratory: No spitting up, shortness of breath, sleep apnea, asthma, emphysema, TB, Cough or Smoker Gastro Gastrointestinal: No diarrhea, constipation, blood in stool, nausea, vomiting orabdominal bloating Shaan Hematologic: Yes anemia, No bleeding and No abnormal bleeding Genitourinary: No urinary frequency, blood in urine or incontinence Exam Details Pupils: PERRL EOM: EOM intact bilaterally Forehead: Chronic frontalis use to overcome dermatochalasis/brow ptosis. I had him close his eyes, relax his forehead, and then open his eyes again and there was significant visual field obstruction. Static forehead rhytids (deep) Eyebrows: Ptotic and below orbital rim bilaterally Eyelids: * MRD 1 was 4 mm, MRD 2 was 5 mm * Good levator function (approximately 12 mm) * No lagophthalmos * Snap back test: not done * Upper lid dermatochalasis bilaterally, obstructing vertical gaze bilaterally secondary to the skin. The skin is hanging over his eyelashes and the lateral portions of his lid margin. Coding Level of Care Code Off vis,new,level 3 Diagnoses Brow ptosis, bilateral H57.813 Dermatochalasis of both upper eyelids H02.831; H02.834 Assessment and Plan (No Qualifiers) Assessment and Plan (1) Brow ptosis, bilateral: Status: Acute (2) Dermatochalasis of both upper eyelids: Status: Acute Plan Assessment and Plan 70-year-old male with a history of hemolytic anemia presenting with excess eyelid skin for potential surgical intervention. The hemolytic anemia is well-managed with iron and folic acid supplementation, and the patient reports no bleeding complications. The primary concern is the excess eyelid skin, which has been noted by the cook house supervisor and peers, prompting consideration for blepharoplasty. The patient is under regular dermatological surveillance due to a family historyof melanoma, with no current signs of malignancy reported. 1. Hemolytic Anemia The patient's hemolytic anemia is currently well-controlled with iron and folic acid supplementation. No additional interventions are required at this time, butregular monitoring by the primary care physician is advised. 2. Dermatochalasis The patient is considering blepharoplasty to address excess eyelid skin, which has been noted by both the cook house supervisor and peers. A visual field test is recommended to assess the impact on vision, and surgical clearance from the primary care physician is advised. 3. Preventative Care: Monitoring For Melanoma Due To Family History The patient is under regular dermatological surveillance due to a family historyof melanoma, with no current signs of malignancy reported. Continued monitoring is recommended to ensure early detection of any potential issues. - Continue taking iron and folic acid as prescribed for hemolytic anemia. - Schedule a visual field test to assess the impact of eyelid skin on vision. - Obtain surgical clearance from your primary care physician before proceeding with blepharoplasty. - Maintain regular dermatological check-ups due to family history of melanoma. Discussed with the patient options for his brows. We discussed transverse incision on the forehead with full mid forehead lift (most powerful unpredictable) . We also discussed browpexy (direct brow lift). We also discussed just doing an upper eyelid blepharoplasty. After discussing the risks, ,benefits, and alternatives, he would like to do a brow pexy procedure (direct brow lift with internal suspension) to address the brow ptosis and an upper eyelid blepharoplasty to address the dermatochalasis. This would be a noncosmetic procedure as both of these issues (brow ptosis and the excess eyelid skin) are causing his significant visual field obstruction. We will plan to take photos today and submit for insurance. He is going to go to the shipping and receiving coordinator for visual field testing. Follow-up with me for preop visit Clinical Quality Measures Falls Risk Screening/Assistive Devices Have you fallen in the past year?: No 08/28/25 1456 <Electronically signed by Ceferino Ramirez MD> Date _ Ceferino Ramirez MD Cosigner Signature: Date (if applicable) CC: ~ [facility] Work Phone: Reason for referral (narrative)No reason for referral information availableKindred Hospital Work Phone: Summary Purpose Family History No Family History Records Found Advance Directives No Advanced Directives Records FoundNo Advanced Directives Records FoundNo Advanced Directives Records FoundNo Advanced Directives Records Found Chief Complaint and Reason for Visit Chief Complaint Admit Date UPPER BLEPH August 28, 2025 8 :58am Reason for Visit Admit Date Brow ptosis, bilateral August 28 8:58am Dermatochalasis of both upper eyelids Oc tober 2024 8:58am Additional Source Comments Care Team (unrecognized sect ion and content) Team Status: Inactive Member Role/Relationship Status Dates Dr. Ceferino Ramirez MD Attending physician Active Start: August 28, 2025 End: August 28, 2025 Care Team (unrecognized sect ion and content) Care Team Personnel Name: Tenisha Hernandez PT Position: P3 Scheduling - Steam Generating Powerplant Mechanic Advanced Member Role: Other Name: WOOD BARRON DO Position: P4 Physician - Primary Care Med Service: Active Provider Member Role: Primary Care Physician Address: Address: [address] [place] [address]- Name: MICAH RODRIGUEZ MD Position: Physician Med Service: Admitting Member Role: Retail Pharmacy Manager Address: Address: [address] [facility] [address] [place] [address] [place] Name: EDGAR SAMUEL MD Position: P4 Oncology Provider Med Service: AMB HEM/ONC Member Role: Facilities Operations Technician Address: Address: [address] [place] [address] [facility] [place] [id number]- Care Team Related Persons Name: HILARY FLANNERYSixto Address: Home [address] [place], [place] [phone] [place] Care Team Personnel Name: Tenisha Hernandez Clerk Courtney PT Position: P3 Scheduling - Steam Generating Powerplant Mechanic Advanced Member Role: Other Name: WOOD BARRON DO Position: P4 Physician - Primary Care Med Service: Active Provider Member Role: Primary Care Physician Address: Address: [address] [place] [address] Name: MICAH RODRIGUEZ MD Position: Physician Med Service: Admitting Member Role: Retail Pharmacy Manager Address: Address: [address] [place] [address] Name: EDGAR SAMUEL MD Position: P4 Oncology Provider Med Service: AMB HEM/ONC Member Role: Facilities Operations Technician Address: Address: [address] [place] [address] [place] [address]- Care Team Related Persons Name: RUTHIE FLANNERY Address: Home [address] [place], [place] [phone] [place] Care Team Personnel Name: Tenisha Hernandez Clerk Courtney PT Position: P3 Scheduling - Steam Generating Powerplant Mechanic Advanced Member Role: Other Name: WOOD BARRON DO Position: P4 Physician - Primary Care Member Role: Primary Care Physician Address: Address: [address] [place] [address] Name: MICAH RODRIGUEZ MD Position: Physician Address: Address: [address] [address]- [place] Name: EDGAR SAMUEL MD Position: P4 Oncology Provider Address: Address: [address] [place] [address] [facility] [address] Care Team Related Persons Name: RUTHIE FLANNERY Address: Home [address] [place], [place] [phone] Care Team Personnel Name: Tenisha Hernandez Clerk Courtney PT Position: P3 Scheduling - Steam Generating Powerplant Mechanic Advanced Member Role: Other Name: WOOD BARRON DO Position: P4 Physician - Primary Care Med Service: Active Provider Member Role: Primary Care Physician Address: Address: [address] [place] [address]- [place] Name: MICAH RODRIGUEZ MD Position: Physician Med Service: Admitting Member Role: Retail Pharmacy Manager Address: Address: [address] [facility] [address] [place] [address]- [place] Name: EDGAR SAMUEL MD Position: P4 Oncology Provider Med Service: AMB HEM/ONC Member Role: Facilities Operations Technician Address: Address: [address] [place] [address] [facility] [place] [id number]- Care Team Related Persons Name: RUTHIE FLANNERY Address: Home [address] [place], [place] [phone] [place] Care Team Personnel Name: Tenisha Hernandez Clerk Courtney PT Position: P3 Scheduling - Steam Generating Powerplant Mechanic Advanced Member Role: Other Name: WOOD BARRON DO Position: P4 Physician - Primary Care Member Role: Primary Care Physician Address: Address: [address] [place] [address]- Name: MICAH RODRIGUEZ MD Position: Physician Member Role: Retail Pharmacy Manager Address: Address: [address] [address]- [place] Name: EDGAR SAMUEL MD Position: P4 Oncology Provider Member Role: Facilities Operations Technician Address: Address: [address] [place] [address] [facility] On[facility] [place] [id number]- Care Team Related Persons Name: RUTHIE FLANNERY Address: Home [address] [place] [phone] [place] Care Team Personnel Name: Tenisha Hernandez Clerk Courtney PT Position: P3 Scheduling - Steam Generating Powerplant Mechanic Advanced Member Role: Other Name: WOOD BARRON DO Position: P4 Physician - Primary Care Member Role: Primary Care Physician Address: Address: [address] [place] [address]- Name: MICAH RODRIGUEZ MD Position: Physician Member Role: Retail Pharmacy Manager Address: Address: [address] [facility] [address] [place] [address]- [place] Name: EDGAR SAMUEL MD Position: P4 Oncology Provider Member Role: Facilities Operations Technician Address: Address: [address] [place] [address] [facility] [place] [id number]- Care Team Related Persons Name: RUTHIE FLANNERY Address: [address] [place], [place] [phone] [place] (unrecognized sect ion and content) No Status Records FoundNo Status Records FoundNo Status Records FoundNo Status Records Found INFORMATION SOURCE (unrecogn ized section and content) DATE CREATED AUTHOR 07/01/2024 [facility] ([place]) DATE CREATED AUTHOR AUTHOR'S ORGANIZ ATION 11/15/2024 [facility] DATE CREATED AUTHOR AUTHOR'S ORGANIZ ATION 09/07/2025 [facility] DATE CREATED AUTHOR AUTHOR'S ORGANIZ ATION 10/02/2025 [facility] Goals (unrecognized section and content) Goals may be documented in a n alternate section FOR RECORDS PERTAINING TO PATIENTS WHO ARE OR HAVE BEEN ENROLLED IN A CHEMICAL DEPENDENCY/SUBSTANCEABUSE PROGRAM, SOME INFORMATION MAY BE OMITTED. This clinical summary was aggregated from multiple sources. Caution should be exercised in using it in the provision of clinical care. This summary normalizes information from multiple sources, and as a consequence, information in this document may materially change the coding, format and clinical context of patient data. In addition, data may be omitted in some cases. CLINICAL DECISIONS SHOULD BE BASED ON THE PRIMARY CLINICAL RECORDS. [employer]. provides no warranty or guarantee of the accuracy or completeness of information in this document.
[2025-10-07] MEDS: Lactated Ringers 1,000 ML 15 ML IV (08:03)
--- NOTE | 2025-10-07 08:23 | PRE.ANES_ITS ---
ASA Classification* ASA Classification ASA Classification: 2 Assessment & Plan Anesthesia* Anesthesia Assessment Anesthesia Assessment: Discussed sedation and/or anesthesia options, risks, benefits, and alternatives with patient/parents/legal guardian/POA. Questions invited. The patient/parents/legal guardian/POA seems to understand and agrees to proceed with anesthesia plan. Reviewed the physical assessment, medical history, allergy history and patient home medications list prior to surgery/procedure/anesthetic and documented any changes. Performed airway and anesthesia risk assessments. Anesthesia Type Anesthesia Type: MAC History Source History Obtained from:: Patient and Chart Anesthesia Focused Assessment* Temperature: 97 F Pulse Rate: 67 Blood Pressure: 148/80 Respiratory Rate: 16 Pulse Ox: 99 Oxygen Delivery Method: Room Air Airway Assessment Mouth opens: >3 cm Mallampati Score: I Teeth Condition: Missing (Patient is missing several teeth. Rest are tight.), Partial (Patient has a permanent upper bridge. It is tight.) and Implants (Left upper molar is an implant. 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 When Was Last Pacemaker Check QUESTION #4 FULL TEXT: You/Your Family Experience fever (hyperthermia) with Anesthesia Last Oral Intake Last Oral intake: Last Oral Intake NPO since 04:00 10/07/25 07:56 Meds taken in AM with sips of water? Meds patient instructed to take am of surgery Any additional information?: Yes NPO since: 04:00 (Patient had black coffee at 4 AM.) Meds taken in AM with sips of water?: Yes PONV PONV - registrar college or university: PONV - registrar college or university Female No 09/28/25 13:02 HX of Motion Sickness No 09/28/25 13:02 HX of N/V After Surgery No 09/28/25 13:02 Non-Smoker Yes 09/28/25 13:02 Duration of Surgery greater Yes 09/28/25 13:02 than 60 minutes Number of Risk Factors 2 09/28/25 13:02 PONV Score Moderate Risk 09/28/25 13:02 Height & Weight Height & Weight: Anesthesia: Height & Weight Height 6 ft 2 in 10/07/25 07:56 Weight: 99.79 kg 10/07/25 07:56 Body Mass Index (BMI) 28.2 10/07/25 07:56 Respiratory Assessment Respiratory Assessment - registrar college or university: Respiratory Tract Infection Hx - registrar college or university Hx Respiratory Tract Infection No 09/28/25 13:02 STOP Sleep Apnea STOP Sleep Apnea - registrar college or university: STOP Sleep Apnea - registrar college or university Hx Hypertension Yes: PER PT, CONTROLLED ON 09/28/25 13:02 MEDS Hx Sleep Apnea No 09/28/25 13:02 CPAP BIPAP Do you snore loudly (louder No 09/28/25 13:02 than talking or can be heard Do you often feel tired/ No 09/28/25 13:02 fatigued/ sleepy during daytime? Has anyone observed you stop Yes 09/28/25 13:02 breathing during sleep? STOP Results Positive 09/28/25 13:02 QUESTION #5 FULL TEXT : Do you snore loudly (louder than talking or can be heard through closed doors)? 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 Specify any problems Hx of Preganancy in last 3 N/A 09/28/25 13:02 Months Nurse Filling Out Transfusion MGRIFFITH 09/28/25 13:02 & Questions: Date: 09/28/25 09/28/25 13:02 Time: 13:05 09/28/25 13:02 Patient unable to answer at this time (ie. confused, unrespo /Reproduction History /Reproductive History - registrar college or university: /Reproductive Hx- registrar college or university Hx Now Gestational Age (in weeks): EDC: Hx Hx Para Hx Section SAB Does the father of the baby or his family experience fever w Father of the baby Malignant Hypertension history comment Active Medications Active Medications: Current Medications Generic Name Dose Route Start Last Admin Trade Name Freq PRN Reason Stop Dose Admin Lactated Ringer's 1,000 mls @ 15 mls/hr 10/07/25 07:45 10/07/25 08:03 IV 15 mls/hr .Q48H POPEYE Administration PFSH Medical History Wears glasses Cancer Alcohol use Easy bruising High cholesterol Restless legs Injury of back Injury of head and neck Hypertension Heartburn Former smoker Leg cramps History of stress test Anemia Home Medications ?Medication ?Instructions ?Recorded ?Last Taken ?Type ascorbate calcium (vitamin C) 500 500 mg PO QDAY 08/2810/06/25 History mg tablet atorvastatin 20 mg tablet 20 mg PO QDAY 08/28/2510/06 History bupropion HCl 150 mg 24 hr tablet, 150 mg PO QDAY 08/1910/06/25 History extended release folic acid 1 mg tablet 1 mg PO QDAY 08/28/25 Unknow n History multivitamin 1 tab PO QDAY 08/28/25 Unkno wn History valsartan 80 mg tablet 80 mg PO QDAY 08/28/2510/07 History Allergy/AdvReac Type Severity Reaction Status Date / Time No Known Allergies Allergy Verified 10/07/25 07:55 Surgical History History of esophagogastroduodenoscopy (EGD) History of colonoscopy History of cardiac catheterization History of back surgery History of testicular surgery History of hernia surgery Social History Smoking Status: Former smoker Review of Systems (Anesthesia) ROS Narrative System reviewed and no additional complaints, except as documented.
--- NOTE | 2025-10-07 08:48 | HP.PCM_ITS ---
HPI - General General Date of Service: 10/07/25 HPI Narrative WOOD FLANNERY, is a 70 M who presents bilateral blepharoplasty and brow lift. HPI from 08/28/25: The patient is a 70-year-old male presenting for evaluation of excess eyelid skin and potential surgical intervention. The patient has a history of hemolytic anemia, which is currently well- controlled with iron and folic acid supplementation. He reports no significant bleeding issues and does not require frequent monitoring for this condition. The patient has been advised by his portable power tool repairer regarding excess eyelid skin, which was initially dismissed but later reconsidered after comments from peers. He has been under regular dermatological surveillance due to a family history of melanoma, with his father having succumbed to metastatic melanoma. The patient reports normal blood pressure readings, with a recent measurement of 140/80 mmHg. He has not experienced any significant visual disturbances but acknowledges potential issues with peripheral vision, especially while driving. ROS: - Hematologic: Hx of hemolytic anemia well controlled on folic acid and - Ophthalmic: Reports potential peripheral vision issues while driving Attestation: Documentation on this patient encounter was supported using ambient scribe technology/ voice AI technology. The patient consented to recording for the purpose of documenting the encounter. Provider reviewed content of the generated note prior to signature. CURRENT ENCOUNTER, 24 Sep 2025: Patient was approved for blepharoplasty and brow lift as he failed his visual field testing. He presents today for preoperative visit. He would like to p jamari with surgery [facility] Medical History Wears glasses Cancer Alcohol use Easy bruising High cholesterol Restless legs Injury of back Injury of head and neck Hypertension Heartburn Former smoker Leg cramps History of stress test Anemia Home Medications ?Medication ?Instructions ?Recorded ?Last Taken ?Type ascorbate calcium (vitamin C) 500 500 mg PO QDAY 08/2810/06/25 History mg tablet atorvastatin 20 mg tablet 20 mg PO QDAY 08/28/2510/06 History bupropion HCl 150 mg 24 hr tablet, 150 mg PO QDAY 08/1910/06/25 History extended release folic acid 1 mg tablet 1 mg PO QDAY 08/28/25 Unknow n History multivitamin 1 tab PO QDAY 08/28/25 Unkno wn History valsartan 80 mg tablet 80 mg PO QDAY 08/28/2510/07 History Allergy/AdvReac Type Severity Reaction Status Date / Time No Known Allergies Allergy Verified 10/07/25 07:55 Surgical History History of esophagogastroduodenoscopy (EGD) History of colonoscopy History of cardiac catheterization History of back surgery History of testicular surgery History of hernia surgery Social History Smoking Status: Former smoker Vital Signs Vital Signs Vital Signs: 10/07/25 07:56 10/07/25 07:56 10/07/25 08:30 Temperature 97 F L 97 F L Temperature Source Temporal Pulse Rate 67 67 Respiratory Rate 16 16 Blood Pressure 148/80 H 148/80 H Blood Pressure Mean 102 Blood Pressure Source Monitor Blood Pressure Position Semi-Fowlers Blood Pressure Location Left Arm Baseline BP 148/80 Pulse Ox 99 99 Oxygen Delivery Method Room Air Room Air Weight Weight: 220 lb Body Mass Index (BMI) 28.2
--- NOTE | 2025-10-07 08:52 | PCM.HP.STD ---
HPI - General HPI Narrative WOOD FLANNERY, is a 70 M who presents for functional upper eyelid blepharoplasty and direct brow lift/pexy. Current Encounter (DATE OF SURGERY H&P UPDATE): I saw and examined the patient this morning in pre-operative holding. We discussed risks and benefits of today's surgery and they would like to proceed. NO CHANGE in health history since last seen and evaluated. Ready to proceed with surgery. [facility] Medical History Wears glasses Cancer Alcohol use Easy bruising High cholesterol Restless legs Injury of back Injury of head and neck Hypertension Heartburn Former smoker Leg cramps History of stress test Anemia Home Medications ?Medication ?Instructions ?Recorded ?Last Taken ?Type ascorbate calcium (vitamin C) 500 500 mg PO QDAY 08/28/25 10/06/25 History mg tablet atorvastatin 20 mg tablet 20 mg PO QDAY 08/28/25 10/06/25 History bupropion HCl 150 mg 24 hr tablet, 150 mg PO QDAY 08/28/25 10/06/25 History extended release folic acid 1 mg tablet 1 mg PO QDAY 08/28/25 Unknown History multivitamin 1 tab PO QDAY 08/28/25 Unknown History valsartan 80 mg tablet 80 mg PO QDAY 08/28/25 10/07/25 History Allergy/AdvReac Type Severity Reaction Status Date / Time No Known Allergies Allergy Verified 10/07/25 07:55 Surgical History History of esophagogastroduodenoscopy (EGD) History of colonoscopy History of cardiac catheterization History of back surgery History of testicular surgery History of hernia surgery Social History Smoking Status: Former smoker Vital Signs Vital Signs Vital Signs: 10/07/25 07:56 10/07/25 07:56 10/07/25 08:30 Temperature 97 F L 97 F L Temperature Source Temporal Pulse Rate 67 67 Respiratory Rate 16 16 Blood Pressure 148/80 H 148/80 H Blood Pressure Mean 102 Blood Pressure Source Monitor Blood Pressure Position Semi-Fowlers Blood Pressure Location Left Arm Baseline BP 148/80 Pulse Ox 99 99 Oxygen Delivery Method Room Air Room Air Weight Weight: 220 lb Body Mass Index (BMI) 28.2 Physical Exam Narrative Upper eyelid dermatochalasis There is brow ptosis. Assessment & Plan Assessment/Plan (1) Dermatochalasis of both upper eyelids: (2) Brow ptosis, bilateral: PLAN: Plan I talked to the patient extensively about the risks of surgery, including bleeding, infection, damage to surrounding structures, poor scaring, surgical site dehiscence and wound formation, need for wound care, need for repeat operations, failure to obtain the desired result, DVT/PE, and the risks of anesthesia including , including stroke (from low blood pressure/ischemia or clot). The benefits and alternatives of this surgery were also discussed. All of their questions were answered, and they agreed to proceed with surgery. I spoke with him about lagophthalmos, blinking issues (risks), and risks of numbness/damage to surrounding structures. He elected to proceed. He was marked in preop holding. INTERVAL H&P PLAN, DATE OF SURGERY: We will proceed with surgery today.
[2025-10-07] MEDS: Cefazolin 1 GM/5 ML Vial 2 GM IV (09:22)
[2025-10-07] MEDS: Povidone Iodine 30 ML Opthalmic Sol 1 DRP (09:35)
[2025-10-07] MEDS: Lidocaine 1% /Epi 1:100 (20ml) 20 ML Vial (09:40)
[2025-10-07] MEDS: fentaNYL 100 MCG/2 ML Ampul IV (10:47)
[2025-10-07] MEDS: Lidocaine 1% (5 ml sdv) 5 ML Vial 15 ML IV (10:53)
[2025-10-07] MEDS: Erythromycin Base 1 OPTH.TUBE 1 APPLIC (10:54)
[2025-10-07] MEDS: Lactated Ringers 1,000 ML 1000 ML IV (10:57)
[2025-10-07] MEDS: dexMEDEtomidine 200 MCG/2 ML ML 20 MCG IV (10:58)
--- NOTE | 2025-10-07 12:03 | PCM.POST.ANE ---
Anesthesia: Postop Eval I Current Vital Signs Temperature: 97.4 F Pulse Rate: 72 Blood Pressure: 134/58 Respiratory Rate: 16 Pulse Ox: 94 Oxygen Delivery Method: Room Air Assessment Airway patent: Yes Spontaneous unlabored respirations: Yes Mental status: Awake and Calm nausea: No Vomiting: No Anesthesia Complication: No Fluid Hydration Crystalloid volume administer (ml): 1,100 Total IV fluid infused: 1,100 Progress Note Anesthesia document: Postop Eval 1 completed: Yes
--- NOTE | 2025-10-07 13:09 | OP.PCM_ITS ---
Operative Report (Standard) Operative Information Date of Procedure: 10/07/25 Pre-Operative Diagnosis: Upper eyelid dermatochalasis and eyebrow ptosis Post-Operative Diagnosis: Same Surgery/Procedure Performed: 1.) Direct upper eyebrow lift (with pexy t echnique) 2.) upper eyelid blepharoplasty (skin only) metal finish inspector: Yes Financial Health Counselor: Sarah Kennedy Tasks completed by construction management assistant: Retracting Type of Anesthesia: General/Supplemental (10 cc of 1% lidocaine with 1-200,000 epinephrine) RN Documented Start/Stop Times: Operation Date: 10/07/25 09:15 Case Time Into Pre-Op 10/07/25 07:41 Out of Pre-Op 10/07/25 09:12 Anesthesia Start 10/07/25 09:15 Into Room 10/07/25 09:15 Procedure Start 10/07/25 09:40 Procedure End 10/07/25 10:56 Anesthesia End 10/07/25 11:09 Out of Room 10/07/25 11:09 Into Recovery 10/07/25 11:11 Into Phase II Recovery 10/07/25 11:46 Out of Recovery 10/07/25 11:46 Out of Phase II 10/07/25 12:28 Procedure Start Time: 09:40 Procedure Stop Time: 10:56 Select all DRAINS/GRAFTS/IMPLANTS that apply: None Estimated Blood Loss: 5 cc Specimen collected: No Description of surgery: Indications: Patient is delightful 70-year-old male with history of proptosis and upper eyelid dermatochalasis. He presents today for functional brow lift and blepharoplasty. He understands the risks, benefits, and alternatives to procedure, and he would like to proceed. Procedure details: Patient was correct identified in preoperative holding and marked. He was taken back to the operating room he was administered general anesthesia and prepped and draped in sterile fashion. Timeout was performed and the above-noted local anesthesia was injected. A 15 blade scalpel was used to make an elliptical incision over each central to lateral eyebrow, which was 6 mm in height. An ellipse of skin and subcutaneous fat was removed, and dissection was taken with Payne tip Bovie electrocautery along the plane of the frontalis muscle (fascia) 1 cm above the skin excision. 4-0 Mersilene sutures in 3 different locations were placed from the frontalis muscle 1 cm above the incision to the eyebrow fat pad and tied in a horizontal mattress in order to lift the eyebrows. The wounds were irrigated with copious amounts normal saline, and the skin was closed with 5-0 nylon interrupted sutures. Attention was then turned to the blepharoplasty. The skin markings were confirmed, with care taken to leave at least 1 cm between the eyelid crease and the eyelid margin, and greater than 1 cm between the eyelid incision and the brow. We did not extend the incisions past the medial puncta or the lateral orbit. Pinch test confirmed that we are taking a safe amount of upper eyelid skin that would not cause lagophthalmos. 15 blade scalpel was used to remove the upper eyelid skin, without resection of any muscle. Hemostasis was obtained with Bovie electrocautery. The wounds were irrigated with copious elidia normal saline and closed with a running subcuticular 6-0 Prolene suture. The suture was secured with Steri-Strips. Erythromycin ophthalmic ointment was placed in the eyes and the incisions. Patient was awakened and taken to the PACU in stable condition. In the PACU he was able to close his eyes. Postoperative plan: Patient will come to clinic tomorrow for a check, and return to clinic in 1 week for suture removal. He will continue eyedrops and ophthalmic ointment and sleep with head of bed elevated and perform cold saline gauze changes for swelling over the next couple of days. Surgical Findings: Able to elevate brows and also resect some skin Complications Complications: No
--- NOTE | 2025-10-07 16:39 | POSTOPAN2_ITS ---
Anesthesia Postop Eval I Sum Postop Eval Completion status Anesthesia document: Postop Eval 1 completed: Yes Anesthesia Postop Eval I Summary Anesthesia Postop Eval I Summary: Anesthesia Postop Eval I: Assessment Summary Airway patent Yes 10/07/25 12:04 DATA ENTRY PROCESSOR.[email or web address] Spontaneous unlabored Yes 10/07/25 12:04 DATA ENTRY PROCESSOR.[email or web address] respirations Mental status Awake,Calm 10/07/25 12:04 DATA ENTRY PROCESSOR.[email or web address] nausea No 10/07/25 12:04 DATA ENTRY PROCESSOR.[email or web address] Vomiting No 10/07/25 12:04 DATA ENTRY PROCESSOR.JDEF Anesthesia Postop Eval I: Fluid Summary Crystalloid volume administer 1,100 10/07/25 12:04 DATA ENTRY PROCESSOR.JDEF (ml) Colloids volume administered ( ml) Blood Product volume administered (ml) Total IV fluid infused 1,100 10/07/25 12:04 DATA ENTRY PROCESSOR.JDEF Anesthesia Postop Eval I: Summary Notes Anesthesia Complication No 10/07/25 12:04 DATA ENTRY PROCESSOR.JDEF Anesthesia Complication Comment: Post-operative progress note Anesthesia: Postop Eval II Evaluation Mental status: Awake and Calm Pain Level: 0 nausea: No Vomiting: No
--- NOTE | 2025-10-07 16:39 | PCM.POSTANE2 ---
Anesthesia Postop Eval I Sum Postop Eval Completion status Anesthesia document: Postop Eval 1 completed: Yes Anesthesia Postop Eval I Summary Anesthesia Postop Eval I Summary: Anesthesia Postop Eval I: Assessment Summary Airway patent Yes 10/07/25 12:04 ENTREPRENEURSHIP PROGRAM DIRECTOR.[email or web address] Spontaneous unlabored Yes 10/07/25 12:04 ENTREPRENEURSHIP PROGRAM DIRECTOR.JDEF respirations Mental status Awake,Calm 10/07/25 12:04 ENTREPRENEURSHIP PROGRAM DIRECTOR.JDEF nausea No 10/07/25 12:04 ENTREPRENEURSHIP PROGRAM DIRECTOR.[email or web address] Vomiting No 10/07/25 12:04 ENTREPRENEURSHIP PROGRAM DIRECTOR.JDEF Anesthesia Postop Eval I: Fluid Summary Crystalloid volume administer 1,100 10/07/25 12:04 ENTREPRENEURSHIP PROGRAM DIRECTOR.JDEF (ml) Colloids volume administered ( ml) Blood Product volume administered (ml) Total IV fluid infused 1,100 10/07/25 12:04 ENTREPRENEURSHIP PROGRAM DIRECTOR.JDEF Anesthesia Postop Eval I: Summary Notes Anesthesia Complication No 10/07/25 12:04 ENTREPRENEURSHIP PROGRAM DIRECTOR.JDEF Anesthesia Complication Comment: Post-operative progress note Anesthesia: Postop Eval II Evaluation Mental status: Awake and Calm Pain Level: 0 nausea: No Vomiting: No
== END 2025-10-07 12:28 | disposition home or self-care (01) ==
LOC: SDC 07:38 → AC 07:39
PROVIDERS: PCP Student in an Organized Health Care Education/Training Program; Referring Provider Surgery Plastic and Reconstructive Surgery; Visit Provider Surgery Plastic and Reconstructive Surgery
PROC: (CPT 15822; principal; 2025-10-07 09:05)
DX: H02.834 Dermatochalasis of left upper eyelid (principal); H02.831 Dermatochalasis of right upper eyelid; H02.403 Unspecified ptosis of bilateral eyelids; I10 Essential (primary) hypertension; E78.00 Pure hypercholesterolemia, unspecified; Z79.899 Other long term (current) drug therapy; Z87.891 Personal history of nicotine dependence
CPT/HCPCS: 15822; 67900; 00103; J2405